=== PATIENT | male | born 1950 | race Caucasian/White ===

== ENCOUNTER → 2020-01-10 10:45 | Outpatient (BNVA) | payer MEDICARE, OTHER, SELFPAY | PROVIDERS: Family Provider Nurse Practitioner Family; Visit Provider Surgery | DX: Z20.828 Contact with and (suspected) exposure to other viral communicable diseases (principal) | CPT/HCPCS: 87635 ==

== ENCOUNTER 2020-01-17 07:23 | Day surgery (SDC) | payer MEDICARE, OTHER, SELFPAY ==
[2020-01-13 12:51] VITALS: BMI 21.9
[2020-01-17 07:55] VITALS: BP 110/70; PULSE 75; RESP 18; TEMP 36.9; O2SAT 98
[2020-01-17] MEDS: sodium chloride 0.9% 1,000 ML 30 ML IV (08:02)
--- NOTE | 2020-01-17 08:32 | W.PM.OPSUD ---
Surgery/Procedure H&P Update DATE OF PROCEDURE: January 17, 2020 DATE H&P PERFORMED: 12/23/19 H&P UPDATE INFORMATION: I have reviewed H&P completed within last 30 days, I have examined patient prior to procedure and No changes to prior documentation PREOP DIAGNOSIS: Constipation PLANNED PROCEDURE: Operation Date: 01/17/20 09:00 Proposed Procedures p Colonoscopy 38019 K59.09(Not Applicable) - Caio Dodge MD
--- NOTE | 2020-01-17 08:38 | P.ANESASSM_ITS ---
Pre-Anesthetic Assessment Pre-Anesthetic Assessment: Height/Weight: Height 1.83 m Weight 73.482 kg Temp Pulse Resp BP Pulse Ox 98.4 F 75 18 110/70 98 01/17/20 07:55 01/17/20 07:55 01/17/20 07:55 01/17/20 07:55 01/17/20 07:55 Preop Diagnosis: Constipation Proposed Procedure: Operation Date: 01/17/20 09:00 Proposed Procedures p Colonoscopy 97912 K59.09(Not Applicable) - Caio Dodge MD Was Beta Lalo taken within 24 hours: N/A Last intake: Intake Last Liquid Date 01/16/20 Last Liquid Time 21:00 Last Solid Date 01/15/20 Last Solid Time 21:00 Social: Social History: Tobacco (1pk day) Exam: Pre-Anes Outpt Exam: alert, oriented x 3, clear to auscultation bilaterally and regular rate & rhythm Airway: Submandibular: WNL Cervical ROM: WNL MP: 2 Dentition: Full (poor) History/ROS: No significant history except as noted and No significant complaints Pulmonary: Pulmonary: COPD (mild. uses mdi rarely) CV/HEM: CV/HEM: None reported : : None reported Hepatic: Hepatic: None reported GI: GI: GERD (occasional) Metabolic: Metabolic: None reported Musc/skel: Musc/skel: None reported Neuropsych: Neuropsych: None reported Anesthetic Plan: ASA status: 2 Anesthesia: MAC Meds/Allergies Current Medications: Current Medications Generic Name Dose Route Start Last Admin Trade Name Freq PRN Reason Stop Dose Admin Sodium Chloride 1,000 mls @ 30 ml s/hr 01/17/20 07:30 01/17/20 08:02 Sodium Chloride 0.9% IV 30 mls/hr .Q24H ALISIA Administration PFSH Anesthesia PFSH: Medical History COPD (chronic obstructive pulmonary disease) GERD (gastroesophageal reflux disease) Hyperlipidemia Surgical History History of eye surgery History of facial surgery History of laparoscopic appendectomy Family History Denies family history of Anesthesia complication Bleeding disorder Social History Smoking and tobacco status: current every day smoker Second hand smoke exposure: No Alcohol intake: never Adopted: No Caregiver/support person: Yes Lives independently: Yes Household members: spouse Housing: House Marital status: service: Yes status: Retired branch: [employer] Current occupational status: retired Pets and animals: No History of recent travel: No Leisure activites: exercise, hunting and fishing Sexually active: Yes Current gender identity: Male Sylvia/Temple: Mormonism Data Anesthesia Cardiac Studies: No Data to Display
[2020-01-17 09:15] VITALS: BP 84/50; PULSE 60; RESP 16; TEMP 36.1; O2SAT 97
[2020-01-17 09:29] VITALS: BP 107/69; PULSE 64; RESP 16; O2SAT 98
--- NOTE | 2020-01-17 09:50 | ANE.PACU2 ---
Inpatient post-anesthesia follow up: Airway intact: Yes Vital signs: Temperature 97 F Pulse Rate 64 Respiratory Rate 16 Blood Pressure 107/69 Pulse Oximetry 98 Oxygen Delivery Me thod Room Air Oxygen Flow Rate Fraction of Inspir ed Oxygen Hydration adequate: Yes Nausea and vomiting: No Pain level: 1 Mental status: Baseline
== END 2020-01-17 09:53 | disposition home or self-care (01) ==
PROVIDERS: PCP Nurse Practitioner Family; Visit Provider Surgery
PROC: 0DJD8ZZ Inspection of Lower Intestinal Tract, Via Natural or Artificial Opening Endoscopic (ICD-10-PCS; CPT 45378; principal; 2020-01-17 09:00)
DX: K59.09 Other constipation (principal); D12.5 Benign neoplasm of sigmoid colon; K64.8 Other hemorrhoids; J44.9 Chronic obstructive pulmonary disease, unspecified; K21.9 Gastro-esophageal reflux disease without esophagitis; E78.5 Hyperlipidemia, unspecified; F17.210 Nicotine dependence, cigarettes, uncomplicated; Z79.82 Long term (current) use of aspirin
CPT/HCPCS: 12345; 45380; 88305; J2704; J7030

== ENCOUNTER 2020-10-26 10:11 | Outpatient (CLI) | payer MEDICARE, OTHER, SELFPAY ==
--- NOTE | 2020-10-26 10:21 | XR_ITS ---
WS: [id number] SCREENING DEXA SCAN [employer] CLINICAL INFORMATION: AGE-RELATED OSTEOPOROSIS WITHOUT CURRENT PATHOLOGICAL FRACTU COMPARISON: None. FINDINGS: The L1-L4 bone mineral density measures 1.878 g/cm2. This corresponds to a T score score of 5.5 and Z score of 6.3. Left femoral neck bone mineral density measures 1.006 g/cm2. This corresponds to a T score of -0.7 an d Z score of 0.2. Right femoral neck bone mineral density measures 0.962 g/cm2. This corresponds to a T score -1.0of an d Z score of -0.1. Mean femoral neck bone mineral density measures 0.984 g/cm2. This corresponds to a T score of -0.8 an d Z score of 0.1. XR/XR DEXA axial skeleton* [id number] IMPRESSION: Normal bone mineralization in the lumbar spine.. Osteopenia in the right femora l neck at the lower end of the range. Normal bone mineralization left femoral n lily. Patient's FRAX calculated 10 year probability for major osteoporotic fracture i s 4.8 % and osteoporotic hip fracture is 1.2%.
== END 2020-10-26 10:12 | disposition home or self-care (01) ==
LOC: RADWPI 10:16
PROVIDERS: PCP Nurse Practitioner Family; Visit Provider Nurse Practitioner Family
DX: M81.0 Age-related osteoporosis without current pathological fracture (principal)
CPT/HCPCS: 77080

== ENCOUNTER 2021-07-02 09:33 | Outpatient (CLI) | payer MEDICARE, OTHER, SELFPAY ==
--- NOTE | 2021-07-02 09:40 | CTR_ITS ---
PROCEDURE INFORMATION: Exam: CT Chest With Contrast; Diagnostic Exam date and time: 07/02/2021 9:40 AM Age: 70 years old Clinical indication: Condition or disease; Lung condition and disease; Other: Benign neoplasm of left lung; Additional info: Benign neoplasm of left lung, mob TECHNIQUE: Imaging protocol: Diagnostic computed tomography of the chest with contrast. Radiation optimization: All CT scans at this facility use at least one of these dose optimization techniques: automated exposure control; mA and/or kV adjustment per patient size (includes targeted exams where dose is matched to clinical indication); or iterative reconstruction. Contrast material: OMNI 300; Contrast volume: 0.95 ml; Contrast route: INTRAVENOUS (IV); COMPARISON: CT chest w con* [id number] 01/03/2019 8:19 AM RADIATION DOSE METRICS: Total DLP (mGy-cm): 658.81 FINDINGS: Lungs: There is new streaky/spiculated nodules in the right upper lobe, the largest measuring approximately 1.8 x 1.3 x 1.6 cm. There is new tiny nodules in the superior anterior left lower lobe, adjacent to the major fissure. Slight increased conspicuity of 0.3 cm subpleural nodule in the anterior left upper lobe. No pleural effusion or pneumothorax. Pleural spaces: See Lungs finding. Heart: Unremarkable. No cardiomegaly. No pericardial effusion. Aorta: Unremarkable. No aortic aneurysm. Other arteries: Mild diffuse atherosclerotic disease is present. Veins: A retroaortic left renal vein is incidentally noted. Lymph nodes: Unremarkable. No enlarged lymph nodes. Bones/joints: Degenerative changes of the spine seen. Soft tissues: Unremarkable. CT/CT chest w con* [id number] IMPRESSION: New spiculated nodules in the right upper lobe. Highly suspicious nodule(s). Consider non-emergent PET/CT, or tissue sampling.(Reference: Arthur) REFERENCES: Arthur Meeks et al. Guidelines for Management of Incidental Pulmonary Nodules Detected on CT Images: From the Fleischner Society 2017. Radiology. 2017;284(1):228-243.
[2021-07-02 10:27] LABS: Blood Urea Nitrogen 16 mg/dL (8-23); Glomerular Filtration Rate 83.4 mL/min (90-130)
[2021-07-02] MEDS: iohexol 300 mg/mL 100 mL Btl IV (12:29)
== END 2021-07-02 09:34 | disposition home or self-care (01) ==
LOC: RAD 09:34
PROVIDERS: PCP Nurse Practitioner Family; Visit Provider Nurse Practitioner Family
DX: D14.32 Benign neoplasm of left bronchus and lung (principal)
CPT/HCPCS: 71260; 82565; 84520

== ENCOUNTER → 2021-07-19 10:07 | Outpatient (BNVA) | payer MEDICARE, OTHER, SELFPAY | PROVIDERS: PCP Nurse Practitioner Family; Visit Provider Thoracic Surgery (Cardiothoracic Vascular Surgery) | DX: R91.8 Other nonspecific abnormal finding of lung field (principal); F17.210 Nicotine dependence, cigarettes, uncomplicated ==

== ENCOUNTER 2021-07-30 11:22 | Outpatient (CLI) | payer MEDICARE, OTHER, SELFPAY ==
--- NOTE | 2021-07-30 13:26 | PFTS_ITS ---
Date of Study:07/30/21 Date of Dictation: MECHANICS: Forced vital capacity (FVC) is normal. Forced expiratory volume in one second (FEV1) is reduced. FEV1/FVC is reduced. FLOW VOLUME LOOP: Reduced flow at all lung volumes with significant scooping. LUNG VOLUMES: Total lung capacity (TLC) is normal. Residual volume (RV) is normal. DIFFUSING CAPACITY FOR CARBON MONOXIDE: Moderately reduced. INTERPRETATION: The postbronchodilator spirometry is consistent with moderate airflow obstruction. There is no significant postbronchodilator response. Lung volumes are normal. Gas exchange (DLCO) is moderately reduced. MTDD
== END 2021-07-30 11:23 | disposition home or self-care (01) ==
LOC: RT 11:26
PROVIDERS: PCP Nurse Practitioner Family; Visit Provider Thoracic Surgery (Cardiothoracic Vascular Surgery)
DX: R91.8 Other nonspecific abnormal finding of lung field (principal)
CPT/HCPCS: 94060; 94726; 94729

== ENCOUNTER → 2021-08-01 12:47 | Outpatient (BNVA) | payer MEDICARE, OTHER, SELFPAY | PROVIDERS: PCP Nurse Practitioner Family; Visit Provider Thoracic Surgery (Cardiothoracic Vascular Surgery) | DX: R91.8 Other nonspecific abnormal finding of lung field (principal); F17.210 Nicotine dependence, cigarettes, uncomplicated | CPT/HCPCS: 99213; 99214 ==

== ENCOUNTER → 2021-08-14 13:20 | Day surgery (SDC) | payer MEDICARE, OTHER, SELFPAY | PROVIDERS: PCP Nurse Practitioner Family; Visit Provider Thoracic Surgery (Cardiothoracic Vascular Surgery) | DX: Z01.818 Encounter for other preprocedural examination (principal) | CPT/HCPCS: 93005; J1100; J2250; J2370; J2405; J2704; J2710; J2795; J3010; J3490 ==

== ENCOUNTER 2021-08-20 19:35 | Inpatient (IN) | payer MEDICARE, OTHER, SELFPAY ==
[2021-08-14 13:15] VITALS: BMI 21.7
--- NOTE | 2021-08-14 13:20 | ECG_ITS ---
[facility] Test Date: 2021-08-14 Pat Name: Giancarlo Ibarra Jr Department: Room: Gender: Male Event Producer: : 1950 Requested By: Sue Jaime Order Number: [id number] Solo MD: Ryan Victor M.D. Measurements Intervals [place] Rate: 71 P: 70 [place]: 142 QRS: 85 QRSD: 93 T: 79 QT: 405 QTc: 441 Interpretive Statements SINUS RHYTHM WITH SINUS ARRHYTHMIA INCOMPLETE RIGHT BUNDLE BRANCH BLOCK [90+ ms QRS DURATION, TERMINAL R IN V1/V2, 40+ ms S IN I/aVL/V4/V5/V6] No previous ECG available for comparison Electronically Signed On 08-14-2021 17:05:09 CDT by Ryan Victor M.D. [id number]
--- NOTE | 2021-08-14 13:33 | P.ANESASSM_ITS ---
Pre-Anesthetic Assessment Height/Weight: Height 1.83 m Weight 72.575 kg Preop Diagnosis: Right upper lobe lung mass/plan lobectomy Operation Date: 08/20/21 09:30 Proposed Procedures p Right upper lobectomy(Right) - Gaston Mccartney MD Familial anesthetic complications: Had halluctions once Was Beta Lalo taken within 24 hours: N/A Was Clonidine taken within 24 hours: N/A Social Alcohol (2 glasses wine daily) and Tobacco Exam alert, oriented x 3, clear to auscultation bilaterally and regular rate & rhythm Airway Mallampati: Class II Dentition: full Pulmonary Chronic Obstructive Pulmonary Disease CV/HEM None reported None reported Hepatic None reported GI Gastroesophageal Reflux Disease Metabolic None reported Musc/skel Lower Back Pain Neuropsych None reported Anesthetic Plan ASA status: 2 Anesthesia: General Risk of > 500 ml blood loss (7ml/kg in children): No Medications/Allergies Home Medications Medication Instructions Recorded Confirmed Last Taken Type albuterol sulfate 90 mcg/actuation 2 puff INHALATION Q4H PRN gm 12/23/19 08/14/21 Unknown History aerosol inhaler (ProAir HFA) aspirin 81 mg tablet,delayed 81 mg PO DAILY 12/23/19 08/14/21 07/30/21 History release (Adult Low Dose Aspirin) fluoxetine 40 mg capsule 40 mg PO DAILY 12/23/19 08/14/21 Unknown History fluticasone fur. 100 mcg-umeclid 1 inh INHALATION DAILY 12/23/19 08/14/21 Unknown History 62.5 mcg-vilant 25 mcg inhalat.powder (Trelegy Ellipta) meloxicam 15 mg tablet 15 mg PO DAILY PRN 12/23/19 08/14/21 Unknown History saw palmetto 500 mg capsule 500 mg PO DAILY cap 12/23/19 08/14/21 Unknown History sildenafil 50 mg tablet 50 mg PO .3x weekly PRN tab 12/23/19 08/14/21 Unknown History simvastatin 40 mg tablet 40 mg PO DAILY 12/23/19 08/14/21 Unknown History Allergies Allergy/AdvReac Type Severity Reaction Status Date / Time No Known Allergies Allergy Verified 08/14/21 13:13 [facility] Anesthesia Medical History COPD (chronic obstructive pulmonary disease) GERD (gastroesophageal reflux disease) Hyperlipidemia Surgical History History of eye surgery History of facial surgery History of laparoscopic appendectomy Family History Denies family history of Anesthesia complication Bleeding disorder Social History Smoking and tobacco status: current every day smoker cigarettes Packs smoked per day: 1 Years cigarettes smoked: 55 Second hand smoke exposure: No Alcohol intake: never Adopted: No Caregiver/support person: Yes Lives independently: Yes Household members: spouse Housing: House Marital status: service: Yes status: Retired branch: [employer] Current occupational status: retired Pets and animals: No History of recent travel: No Leisure activites: exercise, hunting and fishing Sexually active: Yes Current gender identity: Male Sylvia/Muslim: Church Data Anesthesia Cardiac Studies: No Data to Display
[2021-08-14 13:52] LABS: Basophils % 0.5 %; Eosinophils # 0.3 10^3/uL (0.0-0.8); Eosinophils % 4.7 %; Hematocrit 47.8 % (42.0-52.0); Hemoglobin 16.2 g/dL (11.7-16.6); Lymphocytes # 1.5 10^3/uL (0.8-4.8); Mean Corpuscular HGB Conc 33.9 g/dL (30.0-36.0); Mean Corpuscular Hemoglobin 32.9 pg (28.0-34.0); Mean Corpuscular Volume 97.2 fl (80-94); Mean Platelet Volume 10.5 fL (7.4-10.4); Monocytes # 0.5 10^3/uL (0.2-0.9); Monocytes % 7.7 %; Neutrophils # 3.99 10^3/uL (1.8-7.7); Neutrophils % 62.5 %; Nucleated Red Blood Cells % 0 %; Platelet Count 164 10^3/cmm (130-400); Red Blood Count 4.92 10^6/uL (4.1-5.3); Red Cell Distribution Width 13.8 % (12.1-15.1); White Blood Count 6.4 10^3/uL (4.0-10.0)
[2021-08-14 14:02] LABS: INR 0.96 (0.8-1.2)
[2021-08-14 14:07] LABS: Anion Gap 16.8 (5-19); Blood Urea Nitrogen 16 mg/dL (8-23); Calcium 9.1 mg/dL (8.5-10.5); Carbon Dioxide 24 mmol/L (22-29); Chloride 103 mmol/L (98-107); Glomerular Filtration Rate 95.6 mL/min (90-130); Glucose 118 mg/dL (65-115); Osmolality Calculated 292 mOsm/kg (285-295); Potassium 3.8 mmol/L (3.5-5.1); Sodium 140 mmol/L (136-145)
[2021-08-14 14:18] LABS: Urine Appearance Hazy (CLEAR); Urine Color Yellow (Yellow); pH Urine 7 (5-7)
[2021-08-14 14:19] LABS: Add Urine Culture? No; Add Urine Microscopic? YES; Bilirubin Urine Neg (Negative); Blood Urine Neg (Negative); Glucose Urine UA Norm (Normal); Ketones Urine Negative (Negative); Leukocyte Esterase Urine 1+ (Negative); Nitrate Urine Negative (Negative); Protein Urine Neg (Negative); RBC Urine 0-4 /hpf (0-2); Urobilinogen Urine Neg (Negative); WBC Urine 0-4 /hpf (0-5)
[2021-08-20] VITALS (23 sets, daily range): BP systolic 103–137; BP diastolic 60–85; PULSE 69–88; RESP 15–28; TEMP 36.5–37.6; O2SAT 91–98
--- NOTE | 2021-08-20 07:36 | P.ANESUD_ITS ---
Pre-Anesthetic Update Pre-Anesthetic Assessment: Date of Surgery/Procedure: 08/20/21 Preop Charley gnosis: Right upper lobe lung mass/plan lobectomy Proposed Procedure: Operation Date: 08/20/21 09:30 Proposed Procedures p Right upper lobectomy(Right) - Gaston Mccartney MD Any changes to Pre-Anesthetic Assessment?: No Last Intake: > 8hrs Labs Last 48hrs: Blood Bank 08/14/21 13:41 Blood Type O Positive Rho(D) Type Positive Antibody Screen Negative Vitals: Temperature 97.7 F 08/20/21 07:33 Temperature Source Temporal Artery S can 08/20/21 07:33 Pulse Rate 69 08/20/21 07:33 Respiratory Rate 18 08/20/21 07:33 Blood Pressure 109/64 08/20/21 07:33 Blood Pressure Kamala n 79 08/20/21 07:33 Pulse Oximetry 96 08/20/21 07:33 Oxygen Delivery Me thod 08/20/21 07:35 Exam: Pre-Anes Outpt Exam: alert, oriented x 3, clear to auscultation bilaterally and regular rate & rhythm Additional Exam Findings (including area of procedure): General + Epidural +/- A line Other Pertinent Information: Other Pertinent Information: ASA III Cardiac Studies: No Data to Display
[2021-08-20] MEDS: sodium chloride 0.9% 1,000 ML 30 ML IV (08:39)
[2021-08-20] MEDS: midazolam 1 mg/mL INJ 5 ML 5 MG IVP (10:00)
--- NOTE | 2021-08-20 10:26 | ANES.PROC ---
Anesthesia Procedures Procedure/Date: 08/20/21 Epidural: Time Out Performed: Yes Consents Signed: NPO Consent Consent: requested by attending/covering physician, from patient, risks and benefits reviewed and patient agrees to proceed Thoracic Level: T9-T10 Epidural position: sitting Epidural procedure: sterile prep of area, 1% lidocaine to numb the area, 18 g needle, negative for paresthesia passed, neg for paresthesia, test dose given, 1.5% xylocaine 1:200k epi (3), placed PCEA, no systemic response, sterile dressing applied and L.U.D. no apparent complications Additional Comments: EBONY at 6 cm, threaded to 12 cm
--- NOTE | 2021-08-20 13:09 | W.PM.OPSUD ---
Surgery/Procedure H&P Update DATE OF PROCEDURE: August 20, 2021 DATE H&P PERFORMED: 08/01/21 H&P UPDATE INFORMATION: I have reviewed H&P completed within last 30 days, I have examined patient prior to procedure and No changes to prior documentation CHANGES TO PREVIOUS DOCUMENTATION: None PREOP DIAGNOSIS: Right upper lobe lung mass/plan lobectomy PLANNED PROCEDURE: Operation Date: 08/20/21 09:30 Proposed Procedures p Right upper lobectomy(Right) - Gaston Mccartney MD
[2021-08-20] MEDS: ceFAZolin 1,000 mg SDV 2000 MG IRRIGATION (14:32)
--- NOTE | 2021-08-20 19:46 | P.OP_ITS ---
Operative Report Date of procedure: August 20, 2021 Pre-op diagnosis: Preop Diagnosis Right upper lobe lung mass with increased activity on PET scan Post-op diagnosis: same Procedure done: Right upper and middle lobectomies Specimens removed/disposition: Right upper lobe and right middle lobe incontinuity Surgeon: Gaston Mccartney Anesthesia: General (Double-lumen) Complications: None Condition: stable Brief History: Mr. Ibarra is a 70-year-old gentleman referred to our service with a 2 sonometer right upper lobe lung lesion which showed increased activity on PET scan. He marinelli s been followed carefully by his primary care provider Kelly Mcguire since 2017, as he has a long history of tobacco use. He has a benign appearing stable calcified lesion in the left upper lobe which is been unchanged on multiple studies. The new area in the posterior aspect the right upper lobe has a stellate/irregular appearance and a SUV of 5.8 on PET scan. Because of these findings, along with his age and long history tobacco use, surgical resection has been recommended. He underwent careful preoperative pulmonary evaluation. Details the risk of surgery been carefully discussed with Mr. Ibarra and his . Appropriate signs have been reviewed and signed. Procedure: Thoracic epidural catheter was placed prior to entering the surgical suite. Mr. Ibarra underwent general endotracheal anesthesia with double-lumen endotracheal tube placed. Appropriate invasive lines were placed. He was placed in the left lateral decubitus position over axillary roll and protective padding. His entire right chest was sterilely prepped and draped. A muscle-sparing limited right thoracotomy incision was made with cautery used to control bleeding. Latissimus muscle was divided. The anterior serratus muscle was retracted but not divided. The fifth intercostal space was entered. Moist laparotomy pads and the Finochietto retractor were placed. The chest was carefully opened. Right upper lobe mass could be easily palpated with what also felt to possibly represent a satellite lesion. There was extensive the pleura was opened circumf erentially around the hilum. Inferior pulmonary ligament was taken down. Hilar dissection was initiated anteriorly and superiorly. There was extensive matted adenopathy around the hilum which made dissection challenging. This persisted throughout the case. The superior pulmonary vein was controlled and stapled. It was then divided. Dissection was then continued cranially isolating branches of the pulmonary artery to the right upper lobe. These were also taken down ligated and divided. Posteriorly, the bronchus to the right upper lobe was dissected free. Fissure between middle lobe and lower lobe was divided using automated stapler. Pulmonary artery branches to the middle lobe were taken down and ligated. Bronchus to the right middle lobe was stapled, transected, and oversewn. Next, right upper lobe bronchus was stapled and sharply divided with scalpel. Right upper and middle lobe specimen was removed. As it was late in the evening, frozen section was not performed. There were substantial volume of lymph nodes with the specimen. The entire chest was irrigated with large amounts of antibiotic solution. Right lower lobe was reinflated. A modest air leak was noted, which is not surprising given the extensive dissection required related to the adenopathy and incomplete fissures requiring stapled transection. 28 Brazilian drain was placed over the diaphragm and out to the apex. This was connected to Pleur-evac suction. Retractor and sponges were removed. Sponge and needle count was correct. Chest wall was reapproximated with interrupted #1 Vicryl suture. The fascia was closed with running 0 Vicryl suture. The subcutaneous layer was closed with 2-0 Vicryl suture. Skin was reapproximated in a subcuticular manner with 3-0 Monocryl suture. Sterile dressing was applied. Mr. Ibarra was returned to the supine position and awakened from anesthesia. He was extubated without difficulty he was then transferred to the ICU. Family was counseled. Chest x-ray is pending.
--- NOTE | 2021-08-20 20:00 | PM.MISC ---
Miscellaneous Note Note: 08/20/21 - During transport from OR table to ICU bed, epidural catheter became disconnected from hub. Exposed catheter tip was placed on sterile drape, cleansed throroughly with chloroprep for 20 seconds, cut 2 - 3 cm from the tip using sterile scissors and reconnected to a new sterile hub from new epidural kit.
[2021-08-20] MEDS: morphine 4 mg/mL SDV 1 mL 2 MG IVP ×3 (20:05→22:44)
[2021-08-20] MEDS: ondansetron 2 mg/ML SDV 2 mL 4 MG IVP (20:49)
[2021-08-20] MEDS: oxyCODONE-APAP 5-325 mg Tablet 1 TAB PO (20:50)
[2021-08-21] VITALS (56 sets, daily range): BP systolic 101–125; BP diastolic 55–75; PULSE 63–80; RESP 12–34; TEMP 37.2; O2SAT 84–94
[2021-08-21] MEDS: oxyCODONE-APAP 5-325 mg Tablet 1 TAB PO ×4 (01:35→21:04)
[2021-08-21 04:42] LABS: Basophils % 0.1 %; Hematocrit 42.7 % (42.0-52.0); Hemoglobin 14.1 g/dL (11.7-16.6); Lymphocytes # 0.6 10^3/uL (0.8-4.8); Lymphocytes % 6.6 %; Mean Corpuscular Hemoglobin 33.2 pg (28.0-34.0); Mean Corpuscular Volume 100.5 fl (80-94); Mean Platelet Volume 10.1 fL (7.4-10.4); Monocytes # 0.9 10^3/uL (0.2-0.9); Monocytes % 9.6 %; Neutrophils # 7.59 10^3/uL (1.8-7.7); Neutrophils % 83.2 %; Nucleated Red Blood Cells % 0 %; Platelet Count 145 10^3/cmm (130-400); Red Blood Count 4.25 10^6/uL (4.1-5.3); Red Cell Distribution Width 14.3 % (12.1-15.1); White Blood Count 9.1 10^3/uL (4.0-10.0)
[2021-08-21 05:00] LABS: Anion Gap 15.2 (5-19); Blood Urea Nitrogen 17 mg/dL (8-23); Calcium 8.1 mg/dL (8.5-10.5); Carbon Dioxide 20 mmol/L (22-29); Chloride 107 mmol/L (98-107); Glomerular Filtration Rate 133.2 mL/min (90-130); Glucose 126 mg/dL (65-115); Osmolality Calculated 289 mOsm/kg (285-295); Potassium 4.2 mmol/L (3.5-5.1); Sodium 138 mmol/L (136-145)
[2021-08-21] MEDS: morphine 4 mg/mL SDV 1 mL 2 MG IVP ×10 (06:00→20:16)
--- NOTE | 2021-08-21 06:00 | XRR_ITS ---
PROCEDURE INFORMATION: Exam: XR Chest Exam date and time: 08/21/2021 4:31 AM Age: 70 years old Clinical indication: Device placement; Prior surgery; Surgery date: Post-operative (0-2 days); Surgery type: Post op day 1 for RT upper/ middle lobectomy; Patient HX: Epidural line and chest tube in place; Additional info: Postop day 1 status post right upper/middle lobectomies TECHNIQUE: Imaging protocol: XR of the chest. Views: 1 view. COMPARISON: CT chest w con* [id number] 07/02/2021 9:17 AM FINDINGS: Tubes, catheters and devices: Right thoracostomy tube present. Surgical clips project over the right hilum. Coiled epidural line present. Lungs: Previously demonstrated calcified lesion in the left upper lobe. Pleural spaces: No large pleural effusion or definite pneumothorax. Heart/Mediastinum: The cardiac silhouette is not enlarged. Bones/joints: Multilevel degenerative changes in lumbar spine. Soft tissues: Minimal subcutaneous emphysema in the lateral right chest wall and low right neck. XR/XR chest 1V portable [id number] IMPRESSION: Postoperative changes.
--- NOTE | 2021-08-21 06:45 | P.PN_ITS ---
Subjective Subjective: Postop day #1 status post right upper and middle lobectomies for PET positive stellate lesion, highly suspicious for malignancy. Low chest tube output less than 50 cc overnight. Early postop airleak appears to have dissipated this morning. Moderate thoracotomy discomfort though appears to be slightly improved. Nursing service reports no concerns overnight. Chest x-ray shows no infiltrates or effusions. Right thoracostomy tube is in good position. There is not a modest midline shift from the volume loss in the right hemithorax. Remaining right lower lobe appears to be clear. Vitals/I&O/Wt Last Vital Signs Temp 99.7 F H 08/20/21 20:30 Pulse 77 08/21/21 05:33 Resp 29 H 08/21/21 06:00 BP 107/62 08/21/21 05:15 Pulse Ox 92 08/21/21 06:00 08/20/21 08/20/21 08/21/21 14:59 22:59 06:59 Intake Total 50 / 50 Output Total 439 / 439 561 / 1000 Balance -389 / -389 -561 / -950 Physical Exam 2 Chest: OTHER: Chest wall is stable. Surgical dressings in place. No airleak noted with quiet respiration in Pleur-evac Resp: OTHER: Decreased breath sounds in the bases. Urinary Catheter Management: Cross: Cath Placed During This Visit: yes Reason for Continuing Indwelling Catheter: Accurate Measurement of Urinary Output in Critically Ill Patients Urinary Catheter Date of Insertion: 08/20/21 Urinary Catheter Time of Insertion: 14:15 Data : 08/21/21 04:28 08/21/21 04:28 A&P Assessment and plan (1) Status post lobectomy of lung: POD #1 status post right upper and lower lobectomies. Uneventful night. Plan: Out of bed in chair. Incentive spirometry and pulmonary toilet DC arterial line. Chest x-ray in a.m. Status: Acute Attestations Medical Necessity Statement*: Postop day #1 status post right upper and middle lobe lobectomies Coding Level of Care Code Acute Insulation Worker for Chg Fwd Diagnoses Status post lobectomy of lung Z90.2
[2021-08-21] MEDS: pantoprazole DR 40 mg Tablet PO (08:19)
[2021-08-21] MEDS: fluoxetine 20 mg Capsule 40 MG PO (08:19)
[2021-08-21] MEDS: atorvastatin 40 mg Tablet 20 MG PO (08:19)
[2021-08-21] MEDS: albuterol 8 gm MDI 2 PUFF INHALATION ×2 (08:33→20:29)
--- NOTE | 2021-08-21 10:04 | PM.MISC ---
Miscellaneous Note Note: Epidural dressing intact, no s/s of infection, to include erythema, purulence, pain to palpation. Patient sitting up eating on exam. States pain at the moment is moderate and says he's good as long as [he has] his button. Informed patient if his pain were to increase, we can always adjust epidiural settings.
--- NOTE | 2021-08-21 10:27 | PC.CHAP ---
Pastoral Care Encounter/Spiritual Assessment Type of Contact [] Declined fruit and vegetable packer visit [] Patient/Family/Request visit [] Outpatient visit [] Follow-up visit [] Physician referral [] Code/Alert [x] Routine visit [] Staff referral [] Actively dying [x [] Out of room [] Palliative care [] [] Receiving care in room [] Pre-surgical visit [] Trauma [] Long length of stay [x] ICU visit [] Other: Relational/Emotional Strength [] Patient feels connected with others/family/visitors/staff [] Distress [] Loneliness/isolation [] Abandonment Spirituality of Patient [] Person of Sylvia [] Attends Temple of their Sylvia [] Believes in Prayer [] Reads Bible or Denominational materials [] There are Spiritual issues to be addressed Sign Out Clerk Interventions [x] Prayer [] Active listening [] Non-anxious presence [] Spiritual/emotional support [] Crisis/trauma care [] Spiritual counseling [] Bereavement support [] Provided bereavement packet [] Provided Bible/devotional materials [] Provided toy/stuffed animal, coloring book to patient or family member [] Provided Communion [] Anointing/[place] [] Salvation [x] Completed spiritual assessment [] Other: Impact on Illness or Injury [] Angry [] Fearful [] Anxious [] Often cries [] Exhaustion [] Unable to work [] Unable to attend scientology [] Unable to walk/stand [] Unable to read [] Unable to drive [] Unable to eat/drink [] Unable to sleep [] Unable to be with family [] Patient intubated [] Other: Summary Time spent with patient
--- NOTE | 2021-08-21 17:13 | PM.MISC ---
Miscellaneous Note Purpose of Documentation: Sitting up in chair with family at bedside on evening rounds. Light intermittent air leak with respiration and talking. Chest tube output approximately 300 cc. Pulling approximately 1000 cc on incentive spirometry. Surgical dressing dry. Plan: We will obtain chest x-ray in a.m. Continue pulmonary toilet. I will leave chest tube to suction at least another 12 to 24 hours.
--- NOTE | 2021-08-21 18:32 | PC.NURSE ---
Patients pain has not been well controlled via STRAWBERRY GROWER pump. Asking for PRN pain medication as soon as possible.
[2021-08-21] MEDS: ketorolac 30 mg/mL INJ IVP (21:05)
[2021-08-21] MEDS: temazepam 15 mg Capsule PO (21:05)
--- NOTE | 2021-08-21 21:46 | XRR_ITS ---
PROCEDURE INFORMATION: Exam: XR Chest Exam date and time: 08/21/2021 9:53 PM Age: 70 years old Clinical indication: Shortness of breath; Prior surgery; Surgery date: Post-operative (0-2 days); Surgery type: RT upper and middle lobectomy. ; Patient HX: Decrase in 02 sats. Verify chest tube positioning. Post op day 2 for RT upper/middle lobectomy. Epidural line in place. ; Additional info: Chest tube questionability TECHNIQUE: Imaging protocol: XR of the chest. Views: 1 view. COMPARISON: CR XR chest 1V portable [id number] 08/21/2021 4:31 AM FINDINGS: Lungs: Continued loss of volume in the right hemithorax consistent with partial right pneumonectomy. Continued partially calcified lesion in the left lung apex. Pleural spaces: Small right pleural fluid collection. Heart/Mediastinum: Unremarkable. No cardiomegaly. Bones/joints: Unremarkable. XR/XR chest 1V portable [id number] IMPRESSION: 1. Small right pleural fluid collection. 2. Continued loss of volume in the right hemithorax consistent with partial right pneumonectomy. 3. Continued partially calcified lesion in the left lung apex.
[2021-08-21] MEDS: FUROsemide 10 mg/mL SDV 2mL 20 MG IVP (22:08)
[2021-08-22] VITALS (164 sets, daily range): BP systolic 76–128; BP diastolic 47–79; PULSE 61–86; RESP 10–32; TEMP 36.6–37.1; O2SAT 81–98
[2021-08-22] MEDS: oxyCODONE-APAP 5-325 mg Tablet 1 TAB PO ×2 (02:22→15:16)
[2021-08-22] MEDS: ketorolac 30 mg/mL INJ IVP ×4 (03:13→21:03)
[2021-08-22] MEDS: albuterol 8 gm MDI 2 PUFF INHALATION ×2 (05:53→14:29)
--- NOTE | 2021-08-22 06:00 | XRR_ITS ---
PROCEDURE INFORMATION: Exam: XR Chest Exam date and time: 08/22/2021 5:40 AM Age: 70 years old Clinical indication: Device placement; Other: Upper/middle lobectomies; Prior surgery; Surgery date: Post-operative (0-2 days); Additional info: Pod #2 status post right upper/middle lobectomies TECHNIQUE: Imaging protocol: XR of the chest. Views: 1 view. Total images: 1 COMPARISON: CR (CHEST, ) 08/21/2021 9:53 PM FINDINGS: Tubes, catheters and devices: Surgical tubing projecting in right hemithorax unchanged in position. Lungs: Again noted calcified lesion the left lung apex unchanged. Stable right pleuroparenchymal disease. Pleural spaces: No pneumothorax. Heart/Mediastinum: Unremarkable. No cardiomegaly. Bones/joints: Osseous structures are unchanged from the prior exam. Other findings: Stable postsurgical changes. XR/XR chest 1V portable [id number] IMPRESSION: Stable right pleuroparenchymal disease.
[2021-08-22] MEDS: morphine 4 mg/mL SDV 1 mL 2 MG IVP ×3 (06:06→18:37)
[2021-08-22 06:16] LABS: Basophils % 0.2 %; Eosinophils # 0.1 10^3/uL (0.0-0.8); Eosinophils % 0.9 %; Hematocrit 41.6 % (42.0-52.0); Hemoglobin 13.7 g/dL (11.7-16.6); Lymphocytes # 1.3 10^3/uL (0.8-4.8); Lymphocytes % 11.9 %; Mean Corpuscular HGB Conc 32.9 g/dL (30.0-36.0); Mean Corpuscular Hemoglobin 32.8 pg (28.0-34.0); Mean Corpuscular Volume 99.5 fl (80-94); Mean Platelet Volume 9.8 fL (7.4-10.4); Neutrophils # 8.24 10^3/uL (1.8-7.7); Neutrophils % 77.5 %; Nucleated Red Blood Cells % 0 %; Platelet Count 144 10^3/cmm (130-400); Red Blood Count 4.18 10^6/uL (4.1-5.3); White Blood Count 10.6 10^3/uL (4.0-10.0)
[2021-08-22 06:41] LABS: Anion Gap 14.3 (5-19); Blood Urea Nitrogen 27 mg/dL (8-23); Calcium 8.8 mg/dL (8.5-10.5); Carbon Dioxide 23 mmol/L (22-29); Chloride 98 mmol/L (98-107); Glomerular Filtration Rate 83.4 mL/min (90-130); Glucose 109 mg/dL (65-115); Osmolality Calculated 278 mOsm/kg (285-295); Potassium 4.3 mmol/L (3.5-5.1); Sodium 131 mmol/L (136-145)
--- NOTE | 2021-08-22 07:41 | P.PN_ITS ---
Subjective Subjective: Postop day #2 status post right upper lobe lobectomies. Mr. Ibarra slept better last night after receiving Toradol and states it is working quite well to assist with his thoracotomy discomfort. We do know he is requiring more supplemental oxygen and desaturated substantially with oxygen was removed for his chest x-ray this morning. He was quite dyspneic with obvious anxiety for 3 to 4 minutes until his saturation returned up to approximate 92%. Upon review of his x-ray, there is hyperinflation of the left lung as expected though the right lower lobe still remains aerated. Small right pleural effusion is noted and he did have 180 cc out of his pleural drain in the past 24 hours. There is also a modest rightward midline mediastinal shift though no excessive angulation is appreciated of his trachea. Vital signs have otherwise been stable. He had long visits with family yesterday which went well. By exam, he does have substantially decreased breath sounds on the right, more so than what actually is demonstrated from the chest x-ray. I did prescribe Lasix overnight and he did have a nice diuresis and is negative approximately 800 cc past 24 hours. He does show some mild prerenal azotemia on his laboratory data today, though he is not hypokalemic post diuresis. Pathology is pending. Vitals/I&O/Wt Last Vital Signs Temp 97.9 F 08/22/21 01:00 Pulse 69 08/22/21 06:19 Resp 20 H 08/22/21 06:15 BP 100/54 08/22/21 06:15 Pulse Ox 91 08/22/21 06:15 08/21/21 08/22/21 08/22/21 22:59 06:59 14:59 Intake Total 340 / 1060 Output Total 790 / 790 890 / 1680 Balance -450 / 270 -890 / -620 Physical Exam Chest: COMMONS NORMALS: normal inspection of the chest and normal palpation of entire chest wall OTHER: Chest wall is stable without substantial crepitance. Resp: AUSCULTATION: diminished lung sounds on the right Cardio: COMMON NORMALS: regular rate, regular rhythm, S1 normal heart sound present and No rub (Cardio) RATE: regular rate RHYTHM: regular rhythm HEART SOUNDS: S1 normal heart sound present Extremity: COMMON NORMALS: no clubbing, cyanosis or edema Urinary Catheter Management: Cross: Cath Placed During This Visit: yes Reason for Continuing Indwelling Catheter: Accurate Measurement of Urinary Output in Critically Ill Patients Urinary Catheter Date of Insertion: 08/20/21 Urinary Catheter Time of Insertion: 14:15 Data : 08/22/21 06:00 08/22/21 06:00 A&P Assessment and plan (1) Status post lobectomy of lung: Postop day #2 status post right upper and middle lobectomies. Easily desaturates without supplemental oxygen. This is actually worsened over the past 24 hours, though his chest x-ray appears to be stable. Plan: I have asked my colleague, Dr. Padilla from pulmonary medicine for evaluation and recommendations. We are currently continuing pulmonary toilet where he is going about 1000 cc on incentive spirometer. CBC, BMP, chest x-ray in a.m. I have restarted fluids at 100 cc an hour LR. I greatly appreciate Dr. Padilla's expertise and recommendations. Status: Acute Attestations Medical Necessity Statement*: Postop day #2 status post right upper/middle lobectomy Coding Level of Care Code Acute Customer Success Specialist for Chg Fwd Diagnoses Status post lobectomy of lung Z90.2
[2021-08-22] MEDS: lactated ringers 1,000 ML 100 ML IV ×2 (07:43→21:03)
--- NOTE | 2021-08-22 07:56 | PC.RESP ---
albuterol mdi may be left at bedside per Dr. Mccartney verbal order
[2021-08-22] MEDS: atorvastatin 40 mg Tablet 20 MG PO (08:31)
[2021-08-22] MEDS: fluoxetine 20 mg Capsule 40 MG PO (08:31)
[2021-08-22] MEDS: pantoprazole DR 40 mg Tablet PO (08:32)
--- NOTE | 2021-08-22 08:51 | P.CONIM_ITS ---
Providers/Reason For Consult Consulting Physician/Specialty*: Jonathan Padilla MD/ Pulmonology Reason for Consult*: Hypoxia post right upper lobectomy and middle lobectomy Requesting Physician: Gastno Mccartney MD Attending Physician: Gaston Mccartney MD Primary Care Provider: Kelly Mcguire LOGGING SHOVEL OPERATOR-C History of Present Illness History of Present Illness Giancarlo Ibarra Jr is a 70 year old male with past medical history of COPD, GERD, hyperlipidemia, long history of tobacco use underwent right upper and middle lobectomy on 08/20/2021 for PET positive left upper lobe lesion. Explained Patient had fairly large left upper lobe calcified lesion which appeared benign and stable-being followed by PCP with serial imaging. On a more recent CT chest on 07/02/2021 showed same left upper lobe calcified lesion and also new spiculated nodule measuring 1.8 x 1.3 x 1.6 cm in the posterior aspect of the right upper lobe.? These are radiographically suspicious.? Therefore PET scan was performed on July 13 and indeed reveals increased activity in this area with an SUV of 5.8.? There is minimal FDG uptake in a 6 mm superior segment left lower lobe nodule though this is too small to reliably characterize at this time.? This will need close follow-up.? This includes no evidence for kamaljit activity and there is no activity in the larger calcified left upper lobe lesion which has been followed for several years. Prior to lobectomies-patient underwent PFTs which revealed an FEV1 of 2.47 which is 72% of predicted and FVC of 4.17 which is 92% of predicted.? His FEF 25/75 is 1.2 which is 47% of predicted.? There was mild improvement with bronchodilator.? He has moderate diffusion abnormality.? He does utilize home oxygen at night occasionally.? Also patient functional capacity was good and after having discussion about risks and benefits of proposed lobectomies with patient and -patient underwent right upper lobe and middle lobe lobectomy on 08/20/2021. Postoperatively patient was extubated without any difficulty and was moved to ICU for close observation. Chest x-rays revealed continued loss of volume right and consistent with partial right pneumonectomy and expected left lung hyperinflation. Today's postop day 2, chest tube output was low ABCC last 24 hours, there was some air leak and is connected to suction, patient was requiring 15 L nasal cannula. Pulmonary consulted to assist in postoperative respiratory status. Patient seen at bedside and is seen lying comfortably in bed, just returned from chair. Other than discomfort at the surgical site denied any other complaints. Pulling up to 1200 cc on incentive spirometry. Clinically appears stable. Labs and imaging reviewed. Medications/Allergies Home Medications Medication Instructions Recorded Confirmed Last Taken Type albuterol sulfate 90 mcg/actuation 2 puff INHALATION Q4H PRN gm 12/23/19 08/20/21 08/18/21 History aerosol inhaler (ProAir HFA) aspirin 81 mg tablet,delayed 81 mg PO DAILY 12/23/19 08/14/21 07/30/21 History release (Adult Low Dose Aspirin) fluoxetine 40 mg capsule 40 mg PO DAILY 12/23/19 08/20/21 08/19/21 History fluticasone fur. 100 mcg-umeclid 1 inh INHALATION DAILY 12/23/19 08/20/21 08/20/21 06:30 History 62.5 mcg-vilant 25 mcg inhalat.powder (Trelegy Ellipta) meloxicam 15 mg tablet 15 mg PO DAILY PRN 12/23/19 08/20/21 08/13/21 History saw palmetto 500 mg capsule 500 mg PO DAILY cap 12/23/19 08/20/21 08/19/21 History sildenafil 50 mg tablet 50 mg PO .3x weekly PRN tab 12/23/19 08/20/21 07/22/21 History simvastatin 40 mg tablet 40 mg PO DAILY 12/23/19 08/20/21 08/19/21 History Allergies Allergy/AdvReac Type Severity Reaction Status Date / Time No Known Allergies Allergy Verified 08/20/21 07:24 Current Medications Generic Name Dose Route Start Last Admin Trade Name Freq PRN Reason Stop Dose Admin Albuterol Sulfate 2 puff 08/20/21 19:48 08/22/21 05:53 Albuterol 8 Gm Mdi INHALATION 2 puff Q4H PRN Administration Shortness Of Breath Atorvastatin Calcium 20 mg 08/21/21 09:00 08/22/21 08:31 Atorvastatin 40 Mg Tablet PO 20 mg DAILY ALISIA Administration Fluoxetine HCl 40 mg 08/21/21 09:00 08/22/21 08:31 Fluoxetine 20 Mg Capsule PO 40 mg DAILY ALISIA Administration Ropivacaine 200 mg in 100 mls @ 6 mls/hr 08/20/21 08:15 08/22/21 06:45 Naropin Premix EPIDURAL Not Given .[id number] ALISIA Lactated Ringer's 1,000 mls @ 100 mls/hr 08/22/21 07:15 08/22/21 07:43 Lactated Ringers IV 100 mls/hr .Q10H ALISIA Administration Ketorolac Tromethamine 30 mg 08/21/21 20:52 08/22/21 03:13 Ketorolac 30 Mg/Ml Inj IVP 08/26/21 20:51 30 mg Q6H PRN Administration MODERATE PAIN Morphine Sulfate 2 mg 08/20/21 19:48 08/22/21 06:06 Morphine 4 Mg/Ml Sdv 1 Ml IVP 2 mg Q1H PRN Administration SEVERE PAIN Non-Formulary Medication 1 inh 08/21/21 09:00 08/22/21 07:29 Xgayupxwyay-Xhtkqartn-Dqgtkorf [Trelegy Ellipta] INHALATION Not Given DAILY ALISIA Ondansetron HCl 4 mg 08/20/21 19:48 08/20/21 20:49 Ondansetron 2 Mg/Ml Sdv 2 Ml IVP 4 mg Q6H PRN Administration NAUSEA AND VOMITING Oxycodone/Acetaminophen 1 tab 08/20/21 19:48 08/22/21 02:22 Oxycodone-Apap 5-325 Mg Tablet PO 1 tab Q4H PRN Administration MODERATE PAIN Pantoprazole Sodium 40 mg 08/21/21 09:00 08/22/21 08:[address] 40 Mg Tablet PO 40 mg DAILY ALISIA Administration Temazepam 15 mg 08/21/21 20:53 08/21/21 21:05 Temazepam 15 Mg Capsule PO 15 mg BEDTIME PRN Administration INSOMNIA PFSH Acute PFSH: Medical History (Updated 08/22/21 @ 15:51 by Jonathan Padilla MD) COPD (chronic obstructive pulmonary disease) GERD (gastroesophageal reflux disease) Hyperlipidemia Surgical History History of eye surgery History of facial surgery History of laparoscopic appendectomy Family History Denies family history of Anesthesia complication Bleeding disorder Social History Smoking and tobacco status: current every day smoker cigarettes Packs smoked per day: 1 Years cigarettes smoked: 55 Second hand smoke exposure: No Alcohol intake: never Adopted: No Caregiver/support person: Yes Lives independently: Yes Household members: spouse Housing: House Marital status: service: Yes status: Retired branch: [employer] Current occupational status: retired Pets and animals: No History of recent travel: No Leisure activites: exercise, hunting and fishing Sexually active: Yes Current gender identity: Male Sylvia/Scientology: Scientologist Vitals/I&O/Wt Last Vital Signs Temp 97.9 F 08/22/21 01:00 Pulse 69 08/22/21 08:40 Resp 23 H 08/22/21 08:40 BP 98/62 08/22/21 08:40 Pulse Ox 91 08/22/21 08:40 08/21/21 08/22/21 08/22/21 22:59 06:59 14:59 Intake Total 340 / 1060 Output Total 790 / 790 890 / 1680 Balance -450 / 270 -890 / -620 Physical Exam Narrative: General: alert, NAD HEENT: conj clear, EOMI, PERRL, mmm, Neck: supple, no meningismus Heme: no cervical LAP Pulmonary: Reduced breath sounds on right, CTAB, no wheezing, rhonchi, crackles Cardiovascular: rrr, nl s1s2, no mrg Abdomen: soft, nt, nd, no r/g, bs+ Extremities: pulses +, no edema, no c/c : no CVA tenderness Skin: intact, no rash MSK: no back or neck pain Neurologic: grossly intact Urinary Catheter Management: Cross: Cath Placed During This Visit: yes Reason for Continuing Indwelling Catheter: Accurate Measurement of Urinary Outpu t in Critically Ill Patients Urinary Catheter Date of Insertion: 08/20/21 Urinary Catheter Time of Insertion: 14:15 Data : 08/22/21 06:00 08/22/21 06:00 Other Labs: Radiology Impressions Chest X-Ray 08/22/21 06:00 IMPRESSION: Stable right pleuroparenchymal disease. Laboratory Results WBC 10.6 10^3/uL (4.0-10.0) H 08/22/21 06:00 RBC 4.18 10^6/uL (4.1-5.3) 08/22/21 06:00 Hgb 13.7 g/dL (11.7-16.6) 08/22/21 06:00 Hct 41.6 % (42.0-52.0) L 08/22/21 06:00 MCV 99.5 fl (80-94) H 08/22/21 06:00 MCH 32.8 pg (28.0-34.0) 08/22/21 06:00 MCHC 32.9 g/dL (30.0-36.0) 08/22/21 06:00 RDW 14.0 % (12.1-15.1) 08/22/21 06:00 Plt Count 144 10^3/cmm (130-400) 08/22/21 06:00 MPV 9.8 fL (7.4-10.4) 08/22/21 06:00 Neut % (Auto) 77.5 % 08/22/21 06:00 Lymph % (Auto) 11.9 % 08/22/21 06:00 [place] % (Auto) 9.0 % 08/22/21 06:00 Eos % (Auto) 0.9 % 08/22/21 06:00 Baso % (Auto) 0.2 % 08/22/21 06:00 Neut # (Auto) 8.24 10^3/uL (1.8-7.7) H 08/22/21 06:00 Lymph # (Auto) 1.3 10^3/uL (0.8-4.8) 08/22/21 06:00 [place] # (Auto) 1.0 10^3/uL (0.2-0.9) H 08/22/21 06:00 Eos # (Auto) 0.1 10^3/uL (0.0-0.8) 08/22/21 06:00 Baso # (Auto) 0.0 10^3/uL (0.0-0.1) 08/22/21 06:00 Nucleated RBC % (auto) 0 % 08/22/21 06:00 Nucleated RBCs # 0.0 /100WBC 08/22/21 06:00 PT 13.10 SECONDS (12.1-14.9) 08/14/21 13:41 INR 0.96 (0.8-1.2) 08/14/21 13:41 Sodium 131 mmol/L (136-145) L 08/22/21 06:00 Potassium 4.3 mmol/L (3.5-5.1) 08/22/21 06:00 Chloride 98 mmol/L (98-107) 08/22/21 06:00 Carbon Dioxide 23 mmol/L (22-29) 08/22/21 06:00 Anion Gap 14.3 (5-19) 08/22/21 06:00 BUN 27 mg/dL (8-23) H 08/22/21 06:00 Creatinine 0.9 mg/dL (0.7-1.2) 08/22/21 06:00 GFR Calculation 83.4 mL/min (90-130) L 08/22/21 06:00 Glucose 109 mg/dL (65-115) 08/22/21 06:00 Calculated Osmolality 278 mOsm/kg (285-295) L 08/22/21 06:00 Calcium 8.8 mg/dL (8.5-10.5) 08/22/21 06:00 Urine Color Yellow (Yellow) 08/14/21 13:09 Urine Appearance Hazy (CLEAR) A 08/14/21 13:09 Urine pH 7 (5-7) 08/14/21 13:09 Ur Specific [place] 1.010 (1.005-1.030) 08/14/21 13:09 Urine Protein Neg (Negative) 08/14/21 13:09 Urine Glucose (UA) Norm (Normal) 08/14/21 13:09 Urine Ketones Negative (Negative) 08/14/21 13:09 Urine Blood Neg (Negative) 08/14/21 13:09 Urine Nitrate Negative (Negative) 08/14/21 13:09 Urine Bilirubin Neg (Negative) 08/14/21 13:09 Urine Urobilinogen Neg mg/dL (Negative) 08/14/21 13:09 Ur Leukocyte Esterase 1+ (Negative) H 08/14/21 13:09 Urine RBC 0-4 /hpf (0-2) H 08/14/21 13:09 Urine WBC 0-4 /hpf (0-5) H 08/14/21 13:09 Ur Squamous Epith Cells None /hpf (0-5) 08/14/21 13:09 Amorphous Sediment Not Reportable 08/14/21 13:09 Urine Bacteria None /hpf (NONE) 08/14/21 13:09 Blood Type O Positive 08/14/21 13:41 Rho(D) Type Positive 08/14/21 13:41 Antibody Screen Negative 08/14/21 13:41 Crossmatch See Detail 08/14/21 13:41 A&P Assessment and plan (1) Status post lobectomy of lung: Status: Acute (2) COPD (chronic obstructive pulmonary disease): Status: Acute (3) Right upper lobe pulmonary nodule: Status: Acute Plan #PET positive right upper lobe spiculated nodule SUV 5.8 - patient underwent right upper lobe and middle lobe lobectomy on 08/20/2021 - Pathology pending -Extubated uneventfully post surgery -Today postop day 2: 15 L nasal cannula-Taper down to 12 and saturating> 90% -Pulling up to 1200 cc on incentive spirometry. Clinically stable -Chest x-rays revealed continued loss of volume right and consistent with partial right pneumonectomy and expected left lung hyperinflation. -Recommended to sit out of bed to chair/bedside physical therapy/incentive spirometry -Prior to lobectomies-preoperative FEV1 of 2.47 which is 72% of predicted and DLCO 40% predicted.predicted postoperative FEV1 1.82 L and DLCO 29% mild improvement with bronchodilator.? -Reported using 1 to 2 L previously on exertion and sometimes at nighttime. -Given his predicted postoperative DLCO 29%-he may require continuous oxygen supplementation; plan is to taper him down from 12 l nasal cannula; plan is to continue bedside physical therapy, incentive spirometry and pulmonary toileting. -He needs pulmonary rehabilitation after discharge -We will repeat PFTs as outpatient -Right lateral chest tube-no air leak noted at bedside-280 cc output in last 24 hours-CT surgery is following #Stable large calcified PET negative left upper lobe lesion -This includes no evidence for kamaljit activity and there is no activity in the larger calcified left upper lobe lesion which has been followed for several years. #There is minimal FDG uptake in a 6 mm superior segment left lower lobe nodule - though this is too small to reliably characterize at this time.? This will need close follow-up.? #Evidence of emphysema on CT chest # reported smoking several packs a day for more than 50 years-recently down to less than 1 pack a day. -PFT 07/31/2021: The postbronchodilator spirometry is consistent with moderate airflow obstruction.? There is no significant postbronchodilator response.Lung volumes are normal. Gas exchange (DLCO) is moderately reduced -Continue DuoNeb every 6 hr PRN for shortness of breath and wheezing -Continue Trelegy 1 puff daily -Follow-up for COPD as outpatient in pulmonary clinic Regular diet Held anticoagulation-as patient still has epidural Full code DVT prophylaxis: SCDs Medical condition, prognosis, may need and plan t COPD patient, his and daughters at bedside. They verbalized understanding and agreed with the plan. Recommendations conveyed to Dr. Mccartney, RN, RT taking care of the patient Consult Attestations Medical Necessity Statement: Postop s/p right upper lobectomy-recovering p ostoperatively in the ICU Time Spent in Patient Care: Greater than 35 minutes (>than 50% of time spent in counselling and/or direct pt care on unit) . Critical Care Time: The high probability of a clinically significant, sudden or life threatening deterioration of the patient's [pulmonary system(s) required my full and direct attention, intervention and personal management. The critical care time is as shown. This time is in addition to time spent performing any reported procedures but includes the following: [x] Data and vital sign review and interpretation [x] Patient assessment, examination and intervention [x] Documentation [x] Medication orders and management Critical Care Time (min): 55 Coding Level of Care Code New Pt Acute Resource Room Special Education Teacher for Chg Fwd Patient Type New History Comprehensive Exam Comprehensive Medical Decision Making High Complexity Diagnoses Status post lobectomy of lung Z90.2 COPD (chronic obstructive pulmonary disease) J44.9 Right upper lobe pulmonary nodule R91.1 Time Spent (min) 55
--- NOTE | 2021-08-22 12:38 | PC.NURSE ---
Dr. Mccartney rounded again this afternoon. Air leak resolved in atrium chamber. Patient remains stable and continues to improve. Dr. Padilla consulted. No acute changes
--- NOTE | 2021-08-22 14:30 | PM.MISC ---
Miscellaneous Note Note: Epidural dressing intact, patient reporting pain well controlled. Will continue with current regimen
[2021-08-22] MEDS: alum-mag-hydroxide-sime 30 mL UDC PO (15:43)
--- NOTE | 2021-08-22 17:31 | PC.NURSE ---
PT desatted and c/o SOB, Dr. Phan notified. Oximask placed on pt. Spoke with MD and was instructed that pt had similar episode last night. Pt states that SOB has improved with oximask placement. Will wean o2 as tolerated.
[2021-08-22] MEDS: LORazepam 0.5 mg Tablet PO (20:10)
[2021-08-22] MEDS: ipratropium-albuterol 3 mL Neb INHALATION (20:24)
[2021-08-22] MEDS: temazepam 15 mg Capsule PO (21:03)
[2021-08-23] VITALS (46 sets, daily range): BP systolic 90–135; BP diastolic 60–95; PULSE 73–161; RESP 18–32; TEMP 36.9–37.1; O2SAT 87–97
[2021-08-23] MEDS: LORazepam 0.5 mg Tablet PO (01:23)
[2021-08-23] MEDS: morphine 4 mg/mL SDV 1 mL 2 MG IVP ×6 (01:47→21:30)
[2021-08-23] MEDS: oxyCODONE-APAP 5-325 mg Tablet 1 TAB PO ×2 (02:18→11:02)
[2021-08-23] MEDS: diphenhydrAMINE 25 mg Capsule PO (02:19)
--- NOTE | 2021-08-23 03:46 | CTR_ITS ---
PROCEDURE INFORMATION: Exam: CTA Chest With Contrast Exam date and time: 08/23/2021 6:09 AM Age: 70 years old Clinical indication: Dyspnea; Prior surgery; Surgery date: 3-7 days post-operative; Surgery type: RT middle lobectomy; Additional info: Possible pe TECHNIQUE: Imaging protocol: Computed tomographic angiography of the chest with contrast. 3D rendering (Not supervised by radiologist): MIP and/or 3D reconstructed images were created by the technologist. Radiation optimization: All CT scans at this facility use at least one of these dose optimization techniques: automated exposure control; mA and/or kV adjustment per patient size (includes targeted exams where dose is matched to clinical indication); or iterative reconstruction. Contrast material: OMNI 350; Contrast volume: 89 ml; Contrast route: INTRAVENOUS (IV); COMPARISON: CTA Chest-Pulmonary Emb [id number] 04/14/2017 3:31 PM RADIATION DOSE METRICS: Total DLP (mGy-cm): 604.29 FINDINGS: Tubes, catheters and devices: Right chest tube is in place terminating near the apex. Pulmonary arteries: Normal. No pulmonary emboli. Aorta: Unremarkable. No aortic aneurysm. No aortic dissection. Lungs: Status post right upper and middle lobectomies. There are patchy areas of consolidation throughout the right lower lobe. Background of emphysematous changes. Mild left basilar atelectasis. Similar large calcified mass lesion in the left upper lobe. There are also some mild ground-glass opacities in the lingula. Pleural spaces: Small left pleural effusion. Small right hydropneumothorax. Heart: Unremarkable. No cardiomegaly. No pericardial effusion. Lymph nodes: Unremarkable. No enlarged lymph nodes. Bones/joints: Remote left-sided rib fractures. Soft tissues: Unremarkable. CT/CT angio chest PE protcl [id number] IMPRESSION: 1. No pulmonary emboli identified. 2. Postsurgical changes of right upper and middle lobectomies. There is a small right hydropneumothorax. 3. There is evidence of aspiration or pneumonia in the right lower lobe and lingula.
[2021-08-23 04:34] LABS: Basophils % 0.2 %; Eosinophils % 0.4 %; Hematocrit 43.4 % (42.0-52.0); Hemoglobin 14.2 g/dL (11.7-16.6); Lymphocytes # 0.5 10^3/uL (0.8-4.8); Lymphocytes % 5.9 %; Mean Corpuscular HGB Conc 32.7 g/dL (30.0-36.0); Mean Corpuscular Hemoglobin 33.5 pg (28.0-34.0); Mean Corpuscular Volume 102.4 fl (80-94); Mean Platelet Volume 11.1 fL (7.4-10.4); Monocytes # 0.7 10^3/uL (0.2-0.9); Monocytes % 8.1 %; Neutrophils # 7.63 10^3/uL (1.8-7.7); Neutrophils % 84.8 %; Nucleated Red Blood Cells % 0 %; Platelet Count 155 10^3/cmm (130-400); Red Blood Count 4.24 10^6/uL (4.1-5.3); Red Cell Distribution Width 13.8 % (12.1-15.1)
[2021-08-23 04:57] LABS: Blood Urea Nitrogen 23 mg/dL (8-23); Calcium 8.9 mg/dL (8.5-10.5); Carbon Dioxide 25 mmol/L (22-29); Chloride 97 mmol/L (98-107); Glomerular Filtration Rate 111.5 mL/min (90-130); Glucose 121 mg/dL (65-115); Osmolality Calculated 277 mOsm/kg (285-295); Sodium 131 mmol/L (136-145)
[2021-08-23 05:17] LABS: Anion Gap 13.7 (5-19); Potassium 4.7 mmol/L (3.5-5.1)
--- NOTE | 2021-08-23 06:00 | XRR_ITS ---
PROCEDURE INFORMATION: Exam: XR Chest Exam date and time: 08/23/2021 6:15 AM Age: 70 years old Clinical indication: Dyspnea; Prior surgery; Surgery date: 3-7 days post-operative; Additional info: Postop day #3 status post right upper/middle lobectomies TECHNIQUE: Imaging protocol: XR of the chest. Views: 1 view. COMPARISON: CR XR chest 1V portable [id number] 08/22/2021 5:40 AM FINDINGS: Tubes, catheters and devices: Right chest tube is in place. Lungs: Increased airspace opacities in the right lung. Similar calcified lesion at the left lung apex. Pleural spaces: Small right pleural effusion. Heart/Mediastinum: Unremarkable. No cardiomegaly. Bones/joints: Unremarkable. XR/XR chest 1V portable [id number] IMPRESSION: 1. Increasing airspace opacities in the right lung, most consistent with aspiration or pneumonia. 2. Small right pleural effusion.
[2021-08-23] MEDS: iohexol 350 mg/mL 100 mL Btl IV (06:15)
--- NOTE | 2021-08-23 06:33 | PC.NURSE ---
Epidural catheter pulled by Dr. Phan at approximately 0520. Catheter intact. Pt had 4 episodes of desaturation overnight despite high oxygen use. The first episode, occurring around 1999, Dr. Phan was contacted, who contacted Dr. Padilla. Dr. Padilla ordered cpap, which was applied. Pt's saturations improved with cpap. Pt continued to have what appeared to be anxiety attacks causing desaturations 3 more times throughout the night, at approximately 2330, 0200, and 0330. Pt would wake up from sleeping and c/o SOB. Pt would desaturate into the high 70s or 80s. It took approximatley 10-15 minutes for the patient to recover. Several positioning interventions and anxiety medications were attempted to relieve the patient's SOB. These interventions were unsuccessful. At the 0330 attack, cpap was removed and oxymask was reapplied per pt request. Dr. Padilla was contacted due to the frequent attacks. Dr. Padilla ordered a CTA to be performed in the AM. Pt was taken to CT at approiximately 0530 and returned at 0615. Pt was disconnected from suction in order to transport to CT per Dr. Phan's verbal order. Pt was reconnected to suction while in CT. Pt maintained saturations while in CT and reported no SOB.
--- NOTE | 2021-08-23 06:55 | PC.NURSE ---
Bedside report completed with VIVEK Larson.
--- NOTE | 2021-08-23 06:56 | PM.PN ---
Subjective Subjective: Postop day #3 status post right upper lobectomy. Again, last night, Mr. Ibarra had at least 2 episodes of acute dyspnea and desaturation, both while sleeping. This was witnessed by the nurses. I conferred with my colleague Dr. Padilla earlier and we elected to initiate some positive pressure at night in case this was being precipitated by obstructive sleep apnea. Upon my rounds this morning at 5:30 AM he is on a Ventimask and saturating at 93%. I have elected to remove his epidural catheter and consideration of anticoagulation for possible PE. He is just returned from CT scanner suite. We are awaiting official radiographic reading of the study. His chest x-ray continues to reveal hyperexpansion of the left lung and some volume loss on the right lower lobe. Chest tube output is 590 cc past 24 hours, consistent with atelectasis of the right lower lobe. Chest tube output is more serous. H&H is stable. Electrolytes are normal. WBC count is 9.0. Vitals/I&O/Wt Last Vital Signs Temp 98.8 F 08/22/21 20:00 Pulse 93 08/23/21 06:30 Resp 23 H 08/23/21 06:30 BP 113/65 08/23/21 06:30 Pulse Ox 95 08/23/21 06:30 08/22/21 08/22/21 08/23/21 14:59 22:59 06:59 Intake Total 820 / 820 1360 / 2180 100 / 2280 Output Total 480 / 480 505 / 985 Balance 820 / 820 880 / 1700 -405 / 1295 Physical Exam Chest: OTHER: Chest wall is stable. Chest tube is in good position. No subcutaneous emphysema. Resp: OTHER: Decreased breath sounds on the right consistent with a chest x-ray and volume loss in the right lower lobe, presumably due to mediastinal shift from hyperinflation of the left lung. Cardio: OTHER: Regular rate and rhythm with episodes of tachycardia though currently normal rate Extremity: COMMON NORMALS: no clubbing, cyanosis or edema Urinary Catheter Management: Cross: Cath Placed During This Visit: yes Reason for Continuing Indwelling Catheter: Accurate Measurement of Urinary Output in Critically Ill Patients Urinary Catheter Date of Insertion: 08/20/21 Urinary Catheter Time of Insertion: 14:15 Data : 08/23/21 04:09 08/23/21 04:09 A&P Assessment and plan (1) Status post lobectomy of lung: Status: Acute Plan Postop day #3 status post lobectomy with episodic periods of desaturation, frequently occurring while sleeping. I have removed epidural catheter and consideration for initiating anticoagulation. We are currently awaiting official radiographic interpretation of CTA. Greatly appreciate expertise of Dr. Padilla. 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
[2021-08-23] MEDS: ipratropium-albuterol 3 mL Neb INHALATION (07:38)
[2021-08-23] MEDS: docusate sodium 100 mg Capsule PO ×2 (08:00→19:19)
[2021-08-23] MEDS: fluoxetine 20 mg Capsule 40 MG PO (08:01)
[2021-08-23] MEDS: ketorolac 30 mg/mL INJ IVP ×3 (08:01→19:18)
[2021-08-23] MEDS: pantoprazole DR 40 mg Tablet PO (08:07)
--- NOTE | 2021-08-23 08:13 | USCV_ITS ---
Giancarlo Ibarra Jr Age: 70 Gender: M : 1950 Exam Date: 08/23/2021 08:34 Ordering Phys: Gaston Mccartney MD (Andy) ([email or web address] [email or web address] Technologist: Luke Santiago Exam Location: [facility] – [place] Indication: post thorectomy BP: / HR: Rhythm: Sinus Technical Quality: Very technically difficult study MEASUREMENTS (Male / Female) Normal Values FINDINGS Left Ventricle Possibly normal LV size and ejection fraction. Could not do any segmental wall motion analysis. Only subcostal views were obtained Right Ventricle Right Atrium Left Atrium Mitral Valve Aortic Valve Tricuspid Valve Pulmonic Valve Pericardium No significant pericardial effusion. Aorta CONCLUSIONS Technically difficult study. Only subcostal views were obtained. Could not visualize the cardiac structures properly. The LV appears to be of normal size and ejection fraction. Segmental wall motion analysis is not possible. No significant pericardial effusion Dr Yulia Coulter MD FACC (Electronically Signed) Final Date: 23 Aug 2021 15:47 S
--- NOTE | 2021-08-23 08:55 | PC.SOCIAL ---
IMM update IMM updated with patient. Verbalized an understanding. Copy Pg 2 provided. Initialled, dated, timed, and placed in chart.
[2021-08-23 09:03] LABS: D Dimer 1.47 ug/mIFEU (0-0.59)
--- NOTE | 2021-08-23 09:06 | P.CONIM_ITS ---
Providers/Reason For Consult Consulting Physician/Specialty*: Rony Mendoza MD, hospitalist Reason for Consult*: Medical management Attending Physician: Gaston Mccartney MD Primary Care Provider: Kelly Mcguire History of Present Illness History of Present Illness Giancarlo Ibarra Jr is a 70 year old male who underwent right upper lobe and middle lobe lobectomies secondary to right upper lobe lung mass on August 20. Since that time he has had problems with oxygenation, and quick desaturation with any movement. He also had some confusion last night. There is a worry that his adia lity to oxygenate has worsened in the last 24 hours. Pulmonary critical care has been consulted, and is comanaging the patient with chest surgery. There was concern enough last night that a CTA was performed. This did not show any pulmonary embolism, but right lower lobe infiltrate was seen. This raises the concern of aspiration. He currently still has a chest tube on the right side, to suction. Patient himself is currently mildly confused. He can answer questions, but is impulsive and his actions according to nurses. Review of Systems 2 General: Reports: 10 or more systems reviewed and unremarkable except in HPI and below Const: Denies: fever(s) or chills Eyes: Denies: change in vision ENMT: Denies: throat pain Card: Reports: chest pain (Reports some chest discomfort from chest tube, but controlled) Resp: Reports: non-productive cough GI: Denies: abdominal pain : Denies: flank pain Musc: Denies: neck pain Skin/Breast: Denies: rash Neuro: Denies: headache(s) Psych: Denies: anxiety or depression Endo: Denies: polyuria Gurpreet/Lymph: Denies: easy bruising All/Imm: Denies: urticaria Medications/Allergies Home Medications Medication Instructions Recorded Confirmed Last Taken Type albuterol sulfate 90 mcg/actuation 2 puff INHALATION Q4H PRN gm 12/23/19 08/20/21 08/18/21 History aerosol inhaler (ProAir HFA) aspirin 81 mg tablet,delayed 81 mg PO DAILY 12/23/19 08/14/21 07/30/21 History release (Adult Low Dose Aspirin) fluoxetine 40 mg capsule 40 mg PO DAILY 12/23/19 08/20/21 08/19/21 History fluticasone fur. 100 mcg-umeclid 1 inh INHALATION DAILY 12/23/19 08/20/21 08/20/21 06:30 History 62.5 mcg-vilant 25 mcg inhalat.powder (Trelegy Ellipta) meloxicam 15 mg tablet 15 mg PO DAILY PRN 12/23/19 08/20/21 08/13/21 History saw palmetto 500 mg capsule 500 mg PO DAILY cap 12/23/19 08/20/21 08/19/21 History sildenafil 50 mg tablet 50 mg PO .3x weekly PRN tab 12/23/19 08/20/21 07/22/21 History simvastatin 40 mg tablet 40 mg PO DAILY 12/23/19 08/20/21 08/19/21 History Allergies Allergy/AdvReac Type Severity Reaction Status Date / Time No Known Allergies Allergy Verified 08/20/21 07:24 Current Medications Generic Name Dose Route Start Last Admin Trade Name Freq PRN Reason Stop Dose Admin Al Hydrox/Mg Hydrox/Simethicone 30 ml 08/20/21 19:48 08/22/21 15:43 Cmln-Iwe-Tlsdznirr-Pati 30 Ml Udc PO 30 ml Q4H PRN Administration INDIGESTION Albuterol/Ipratropium 3 ml 08/22/21 16:33 08/23/21 07:38 Ipratropium-Albuterol 3 Ml Neb INHALATION 3 ml Q6H PRN Administration SHORTNESS OF BREATH Atorvastatin Calcium 20 mg 08/21/21 09:00 08/22/21 08:31 Atorvastatin 40 Mg Tablet PO 20 mg DAILY ALISIA Administration Docusate Sodium 100 mg 08/20/21 19:48 08/23/21 08:00 Docusate Sodium 100 Mg Capsule PO 100 mg BID PRN Administration Constipation (Use 1st) Fluoxetine HCl 40 mg 08/21/21 09:00 08/23/21 08:01 Fluoxetine 20 Mg Capsule PO 40 mg DAILY ALISIA Administration Lactated Ringer's 1,000 mls @ 75 mls/hr 08/22/21 07:15 08/22/21 21:03 Lactated Ringers IV 100 mls/hr .[id number] ALISIA Administration Ketorolac Tromethamine 30 mg 08/21/21 20:52 08/23/21 08:01 Ketorolac 30 Mg/Ml Inj IVP 08/26/21 20:51 30 mg Q6H PRN Administration MODERATE PAIN Morphine Sulfate 2 mg 08/20/21 19:48 08/23/21 01:47 Morphine 4 Mg/Ml Sdv 1 Ml IVP 2 mg Q1H PRN Administration SEVERE PAIN Non-Formulary Medication 1 inh 08/21/21 09:00 08/22/21 07:29 Qqjxrmnoidi-Icxshabdi-Htvleedt [Trelegy Ellipta] INHALATION Not Given DAILY ALISIA Ondansetron HCl 4 mg 08/20/21 19:48 08/20/21 20:49 Ondansetron 2 Mg/Ml Sdv 2 Ml IVP 4 mg Q6H PRN Administration NAUSEA AND VOMITING Oxycodone/Acetaminophen 1 tab 08/20/21 19:48 08/23/21 02:18 Oxycodone-Apap 5-325 Mg Tablet PO 1 tab Q4H PRN Administration MODERATE PAIN Pantoprazole Sodium 40 mg 08/21/21 09:00 08/23/21 08:[address] 40 Mg Tablet PO 40 mg DAILY ALISIA Administration PFSH Acute PFSH: Medical History (Updated 08/23/21 @ 09:12 by Rony Mendoza MD) COPD (chronic obstructive pulmonary disease) GERD (gastroesophageal reflux disease) Hyperlipidemia Lung mass Surgical History History of eye surgery History of facial surgery History of laparoscopic appendectomy Family History Denies family history of Anesthesia complication Bleeding disorder Social History Smoking and tobacco status: current every day smoker cigarettes Packs smoked per day: 1 Years cigarettes smoked: 55 Second hand smoke exposure: No Alcohol intake: never Adopted: No Caregiver/support person: Yes Lives independently: Yes Household members: spouse Housing: House Marital status: service: Yes status: Retired branch: [employer] Current occupational status: retired Pets and animals: No History of recent travel: No Leisure activites: exercise, hunting and fishing Sexually active: Yes Current gender identity: Male Sylvia/Congregational: Hinduism Vitals/I&O/Wt Last Vital Signs Temp 98.8 F 08/22/21 20:00 Pulse 93 08/23/21 06:30 Resp 23 H 08/23/21 06:30 BP 113/65 08/23/21 06:30 Pulse Ox 95 08/23/21 06:30 08/22/21 08/23/21 08/23/21 22:59 06:59 14:59 Intake Total 1360 / 2180 100 / 2280 Output Total 480 / 480 825 / 1305 Balance 880 / 1700 -725 / 975 Physical Exam Narrative: General exam is a conversant male, slightly tachypneic, in no distress. Currently on 15 L. HEENT: Pupils equally round. Oropharynx clear. Neck is supple no lymphadenopathy or thyromegaly Cardiovascular regular rate and rhythm, without murmur Lungs diminished breath sounds bilaterally but no wheezes or crackles. Chest tube noted. Abdomen is soft with positive bowel sounds. No obvious organomegaly exam is deferred Extremities no cyanosis clubbing or edema, cap refill brisk. Urinary Catheter Management: Cross: Cath Placed During This Visit: yes Reason for Continuing Indwelling Catheter: Accurate Measurement of Urinary Output in Critically Ill Patients Urinary Catheter Date of Insertion: 08/20/21 Urinary Catheter Time of Insertion: 14:15 Data : 08/23/21 04:09 08/23/21 04:09 Micro: CTA showed no pulmonary embolism, postsurgical changes and evidence of pneumonia in the right lower lobe A&P Assessment and plan (1) Lung mass: He is postoperative day #3, status post right upper lobectomy. Some concerns with recovery secondary to confusion and hypoxia. No pulmonary embolism seen on CTA. Status: Acute (2) Pneumonia: CTA shows right lower lobe pneumonia. This could represent aspiration. Pulmonary critical care and cardiothoracic surgery has ordered Zosyn, and speech therapy consultation which is appropriate. Pending the speech therapy consultation will change diet to pur?ed with nectar thick liquids Sputum culture ordered He is already on pulmonary toilet Status: Acute (3) Confusion: Confusion is consistent with delirium. He has no focal deficits. He had a fair amount of medications to calm him yesterday and last night including Benadryl, lorazepam, temazepam. We will discontinue these in case they are contributing to confusion. If delirium continues could consider Haldol Status: Acute (4) Hyponatremia: Mild hyponatremia. No evidence of fluid overload. Overall 600 cc negative for this hospitalization. Reduce LR to 75 cc an hour as he is taking some fluids. Continue to monitor electrolytes closely. Status: Acute (5) COPD (chronic obstructive pulmonary disease): Pulmonary toilet is already been ordered Status: Acute Plan Other medical problems as listed in past medical history SCDs for DVT prophylaxis Anticoagulation, DVT dosing, when appropriate per cardiothoracic surgery and pulmonary. Patient still has chest tube at this time. 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
--- NOTE | 2021-08-23 09:38 | USCV_ITS ---
Giancarlo Ibarra Jr Age: 70 Gender: M : 1950 Exam Date: 08/23/2021 13:30 Ordering Phys: Rony Mendoza MD Technologist: Luke Santiago Exam Location: [facility] – [place], [place] Indication: post surg chest pain PROCEDURES: The venous duplex Doppler examination of both lower extremities was performed in the standard fashion. The following venous structures were evaluated: common femoral vein, profunda vein, proximal portion of the greater saphenous vein, superficial femoral vein, and the popliteal vein. In addition, the posterior tibial and peroneal trunk were evaluated. Bilaterally, the common femoral, superficial femoral, profunda femoral, popliteal, posterior tibial, greater saphenous veins, and the peroneal trunk were identified and interrogated in the standard fashion. These veins were found to be easily compressible with spontaneous blood flow. No evidence of insufficiency or thrombus noted. FINDINGS: Normal 2-D Doppler and augmentation and compressibility throughout the lower extremity venous structures. Additional imaging through the proximal calf veins also reveals no thrombus. Limited evaluation of the greater saphenous vein is patent with no thrombus.. CONCLUSIONS No evidence of right lower extremity DVT. No evidence of left lower extremity DVT. Usama Denney MD (Electronically Signed) Final Date: 23 Aug 2021 16:05 S
[2021-08-23] MEDS: piperacillin-tazobactam 3.375 GM in sodium chloride 0.9% (plus) 50 ML IV ×2 (09:43→17:31)
[2021-08-23] MEDS: lactated ringers 1,000 ML 100 ML IV (09:44)
[2021-08-23] MEDS: atorvastatin 40 mg Tablet 20 MG PO (09:51)
--- NOTE | 2021-08-23 11:00 | PC.NURSE ---
at bedside, pouring pt coffee. Pt refused to have thickener in his coffee at this time.
[2021-08-23] MEDS: metoprolol tartrate 1 mg/1 mL SDV 5 mL 5 MG IVP (12:28)
--- NOTE | 2021-08-23 12:29 | ECG_ITS ---
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 Measurements Intervals [place] Rate: 161 P: MD: QRS: -10 QRSD: 93 T: 39 QT: 289 QTc: 474 Interpretive Statements ATRIAL FIBRILLATION WITH RAPID VENTRICULAR RESPONSE CRITICAL TEST RESULT Compared to ECG 08/14/2021 13:27:25 Sinus rhythm no longer present Sinus arrhythmia no longer present Incomplete right bundle-branch block no longer present Electronically Signed On 08-23-2021 20:19:14 CDT by Yulia Coulter M.D. [email or web address]
[2021-08-23 13:03] LABS: Magnesium 2.3 mg/dL (1.7-2.3); Thyroid Stimulating Hormone 1.34 uIU/mL (0.27-4.20)
[2021-08-23] MEDS: heparin drip 25,000 UNIT/500 ML PREMIX 23 UNIT IV (13:06)
[2021-08-23] MEDS: heparin 5,000 unit/mL INJ 1 mL IV ×2 (13:15→21:25)
--- NOTE | 2021-08-23 13:15 | PC.NURSE ---
Pt became very short of breath. Heart rate 165. Encouraged pt to cough, heart rate back to 110's briefly, then back u p to 160's. Dr Mendoza on unit notified , Metoprolol 5mg IVP ordered and administered. NO significant change noted, heart rate 140-150's. Amiodarone gtt ordered and started. New IV started. Heart rate down to 130-140, pt still short of breath but improving.
--- NOTE | 2021-08-23 13:30 | PC.NURSE ---
Chest tube now to water seal.
--- NOTE | 2021-08-23 14:42 | ANE.PACU2 ---
Inpatient post-anesthesia follow up: Airway intact: Yes Vital signs: Temperature 98.8 F Pulse Rate 161 Respiratory Rate 22 Blood Pressure 113/65 Pulse Oximetry 94 Oxygen Delivery Me thod Oxymask Oxygen Flow Rate 15 Fraction of Inspir ed Oxygen Hydration adequate: Yes Nausea and vomiting: No Pain level: 3 Mental status: Baseline Additional Comments: Epidural removed by surgery this morning, site C/D/I.
--- NOTE | 2021-08-23 15:03 | P.PN_ITS ---
Subjective Subjective: -Postop day #3 status post right upper and middle lobectomy- pathology still pending -Patient had couple of episodes 2 episodes of acute dyspnea and desaturation to low 70s both while sleeping and witnessed by the nurses. -Started patient on CPAP 10 as he may have component of undiagnosed KUSH -Other considerations for hypoxic episodes-May be exacerbation of undiagnosed ASD/PFO-ordered CV echo today morning -Underwent CTA today morning which ruled out pulmonary embolism but showed right lower lobe infiltrate suggestive of aspiration. Speech therapy consulted and evaluated and started patient on mechanical soft Pur?ed diet -His chest x-ray continues to reveal hyperexpansion of the left lung and some volume loss on the right lower lobe. -Chest tube output is 590 cc past 24 hours and appear more serous in nature consistent with atelectasis of the right lower lobe. -Saturating 97% on 12 L Venturi mask-later requiring 6 L on oxygen pendant -Afternoon patient developed atrial fibrillation and received the pulm pressures and started on amiodarone drip -Other labs and imaging reviewed Medications: Reviewed: Yes Vitals/I&O/Wt Last Vital Signs Temp 98.8 F 08/22/21 20:00 Pulse 161 H 08/23/21 12:29 Resp 22 H 08/23/21 11:02 BP 113/65 08/23/21 06:30 Pulse Ox 94 08/23/21 11:02 08/23/21 08/23/21 08/23/21 06:59 14:59 22:59 Intake Total 100 / 2280 1000 / 1000 Output Total 825 / 1305 Balance -725 / 975 1000 / 1000 Weight last 48 hrs Weight 177 lb 14.609 oz Weight 177 lb 11.2 oz Physical Exam Narrative: General: alert, NAD HEENT: conj clear, EOMI, PERRL, mmm, Neck: supple, no meningismus Heme: no cervical LAP Pulmonary: Reduced breath sounds on right, CTAB, no wheezing, rhonchi, crackles Cardiovascular: rrr, nl s1s2, no mrg Abdomen: soft, nt, nd, no r/g, bs+ Extremities: pulses +, no edema, no c/c : no CVA tenderness Skin: intact, no rash MSK: no back or neck pain Neurologic: grossly intact Urinary Catheter Management: Cross: Cath Placed During This Visit: yes Reason for Continuing Indwelling Catheter: Accurate Measurement of Urinary Output in Critically Ill Patients Urinary Catheter Date of Insertion: 08/20/21 Urinary Catheter Time of Insertion: 14:15 Data : 08/23/21 04:09 08/23/21 04:09 Other Labs: Radiology Impressions Chest CTA 08/23/21 03:46 IMPRESSION: 1. No pulmonary emboli identified. 2. Postsurgical changes of right upper and middle lobectomies. There is a small right hydropneumothorax. 3. There is evidence of aspiration or pneumonia in the right lower lobe and lingula. Chest X-Ray 08/23/21 06:00 IMPRESSION: 1. Increasing airspace opacities in the right lung, most consistent with aspiration or pneumonia. 2. Small right pleural effusion. Laboratory Results WBC 9.0 10^3/uL (4.0-10.0) 08/23/21 04:09 RBC 4.24 10^6/uL (4.1-5.3) 08/23/21 04:09 Hgb 14.2 g/dL (11.7-16.6) 08/23/21 04:09 Hct 43.4 % (42.0-52.0) 08/23/21 04:09 MCV 102.4 fl (80-94) H 08/23/21 04:09 MCH 33.5 pg (28.0-34.0) 08/23/21 04:09 MCHC 32.7 g/dL (30.0-36.0) 08/23/21 04:09 RDW 13.8 % (12.1-15.1) 08/23/21 04:09 Plt Count 155 10^3/cmm (130-400) 08/23/21 04:09 MPV 11.1 fL (7.4-10.4) H 08/23/21 04:09 Neut % (Auto) 84.8 % 08/23/21 04:09 Lymph % (Auto) 5.9 % 08/23/21 04:09 Kimble % (Auto) 8.1 % 08/23/21 04:09 Eos % (Auto) 0.4 % 08/23/21 04:09 Baso % (Auto) 0.2 % 08/23/21 04:09 Neut # (Auto) 7.63 10^3/uL (1.8-7.7) 08/23/21 04:09 Lymph # (Auto) 0.5 10^3/uL (0.8-4.8) L 08/23/21 04:09 Kimble # (Auto) 0.7 10^3/uL (0.2-0.9) 08/23/21 04:09 Eos # (Auto) 0.0 10^3/uL (0.0-0.8) 08/23/21 04:09 Baso # (Auto) 0.0 10^3/uL (0.0-0.1) 08/23/21 04:09 Nucleated RBC % (auto) 0 % 08/23/21 04:09 Nucleated RBCs # 0.0 /100WBC 08/23/21 04:09 PT 13.10 SECONDS (12.1-14.9) 08/14/21 13:41 INR 0.96 (0.8-1.2) 08/14/21 13:41 D-Dimer 1.47 ug/mIFEU (0-0.59) H 08/23/21 08:33 Sodium 131 mmol/L (136-145) L 08/23/21 04:09 Potassium 4.7 mmol/L (3.5-5.1) 08/23/21 04:09 Chloride 97 mmol/L (98-107) L 08/23/21 04:09 Carbon Dioxide 25 mmol/L (22-29) 08/23/21 04:09 Anion Gap 13.7 (5-19) 08/23/21 04:09 BUN 23 mg/dL (8-23) 08/23/21 04:09 Creatinine 0.7 mg/dL (0.7-1.2) 08/23/21 04:09 GFR Calculation 111.5 mL/min (90-130) 08/23/21 04:09 Glucose 121 mg/dL (65-115) H 08/23/21 04:09 Calculated Osmolality 277 mOsm/kg (285-295) L 08/23/21 04:09 Calcium 8.9 mg/dL (8.5-10.5) 08/23/21 04:09 Magnesium 2.3 mg/dL (1.7-2.3) 08/23/21 04:09 TSH 1.34 uIU/mL (0.27-4.20) 08/23/21 04:09 Urine Color Yellow (Yellow) 08/14/21 13:09 Urine Appearance Hazy (CLEAR) A 08/14/21 13:09 Urine pH 7 (5-7) 08/14/21 13:09 Ur Specific [place] 1.010 (1.005-1.030) 08/14/21 13:09 Urine Protein Neg (Negative) 08/14/21 13:09 Urine Glucose (UA) Norm (Normal) 08/14/21 13:09 Urine Ketones Negative (Negative) 08/14/21 13:09 Urine Blood Neg (Negative) 08/14/21 13:09 Urine Nitrate Negative (Negative) 08/14/21 13:09 Urine Bilirubin Neg (Negative) 08/14/21 13:09 Urine Urobilinogen Neg mg/dL (Negative) 08/14/21 13:09 Ur Leukocyte Esterase 1+ (Negative) H 08/14/21 13:09 Urine RBC 0-4 /hpf (0-2) H 08/14/21 13:09 Urine WBC 0-4 /hpf (0-5) H 08/14/21 13:09 Ur Squamous Epith Cells None /hpf (0-5) 08/14/21 13:09 Amorphous Sediment Not Reportable 08/14/21 13:09 Urine Bacteria None /hpf (NONE) 08/14/21 13:09 Blood Type O Positive 08/14/21 13:41 Rho(D) Type Positive 08/14/21 13:41 Antibody Screen Negative 08/14/21 13:41 Crossmatch See Detail 08/14/21 13:41 A&P Assessment and plan (1) Status post lobectomy of lung: Status: Acute (2) COPD (chronic obstructive pulmonary disease): Status: Acute (3) Right upper lobe pulmonary nodule: Status: Acute (4) Aspiration pneumonia: Status: Acute Plan #PET positive right upper lobe spiculated nodule SUV 5.8 - patient underwent right upper lobe and middle lobe lobectomy on 08/20/2021 - Pathology pending -Extubated uneventfully post surgery -Today postop day 3: -Saturating 97% on 12 L Venturi mask-later requiring 6 L on oxygen pendant -Pulling up to 1000 cc on incentive spirometry. Clinically stable -Epidural removed toda -Currently pain is being managed by Toradol, morphine 1 mg IV push every hour as needed Percocet as needed - CTA visit 2021 which ruled out pulmonary embolism but showed right lower lobe infiltrate suggestive of aspiration. Speech therapy consulted and reported mild risk of aspiration especially with liquids and so started patient on mechanical soft with nectar thick liquids; also started on Zosyn for aspiration and send for sputum cultures - Chest x-ray continues to reveal hyperexpansion of the left lung and some volume loss on the right lower lobe. -Recommended to sit out of bed to chair/bedside physical therapy/incentive spirometry -Prior to lobectomies-preoperative FEV1 of 2.47 which is 72% of predicted and DLCO 40% predicted.predicted postoperative FEV1 1.82 L and DLCO 29% mild improvement with bronchodilator.?Reported using 1 to 2 L previously on exertion and sometimes at nighttime. -Given his predicted postoperative DLCO 29%-he may require continuous oxygen supplementation; plan is to taper him down from 12 L nasal cannula and intermittent -He needs pulmonary rehabilitation after discharge -We will repeat PFTs as outpatient -Right lateral chest tube-no air leak noted at bedside-590 cc liters output in last 24 hours-CT surgery is following # Patient had couple of episodes 2 episodes of acute dyspnea and desaturation to low 70s both sleeping and witnessed by the nurses. -Started patient on CPAP 10 as he may have component of undiagnosed KUSH - needs sleep study post discharge -Other considerations for hypoxic episodes-May be exacerbation of undiagnosed ASD/PFO-ordered CV echo today morning currently awaiting report #Stable large calcified PET negative left upper lobe lesion -This includes no evidence for kamaljit activity and there is no activity in the larger calcified left upper lobe lesion which has been followed for several years. #There is minimal FDG uptake in a 6 mm superior segment left lower lobe nodule - though this is too small to reliably characterize at this time.? This will need close follow-up.? #Evidence of emphysema on CT chest # reported smoking several packs a day for more than 50 years-recently down to less than 1 pack a day. -PFT 07/31/2021: The postbronchodilator spirometry is consistent with moderate airflow obstruction.? There is no significant postbronchodilator response.Lung volumes are normal. Gas exchange (DLCO) is moderately reduced -Continue DuoNeb every 6 hr PRN for shortness of breath and wheezing -Continue Trelegy 1 puff daily -Follow-up for COPD as outpatient in pulmonary clinic #A. fib with RVR -Received metoprolol IV pushes and started on amiodarone drip -Electrolytes within normal limits -started on heparin drip Regular diet-mechanical soft with nectar liquids Full code DVT prophylaxis: already on heparin drip Updated family.. They verbalized understanding and agreed with the plan. Recommendations conveyed to Dr. Mccartney/Dr. Mendoza RN, RT taking care of the patient Attestations Medical Necessity Statement*: - Postop day 3-needs close monitoring in ICU for A. fib with RVR/hypoxia Time Spent in Patient Care: Greater than 35 minutes (>than 50% of time spent in counselling and/or direct pt care on unit) . Critical Care Time: The high probability of a clinically significant, sudden or life threatening deterioration of the patient's [pulmonary, cardiac system(s) required my full and direct attention, intervention and personal management. The critical care time is as shown. 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
--- NOTE | 2021-08-23 19:00 | PC.NURSE ---
Bedside report completed with VIVEK Fuentes.
--- NOTE | 2021-08-23 19:10 | PC.NURSE ---
Heart rhythm converted back to sinus rhythm.
--- NOTE | 2021-08-23 20:00 | PC.NURSE ---
Shift Note: Pt agitated and fidgety this am. He was able to answer questions appropriately. He was up to chair from before breakfast until about 1045 when he insisted on going back to bed because his back was hurting. He received Toradol twice and oxycodone once this shift for pain. Toradol worked better than oxycodoone. Morphine worked best , he received 2 doses this afternoon , with which he became much more calmer and no fidgeting. His , at bedside, noticed and commented on the improvement. He went into A-fib around lunch, metoprolol did not seem to help. Amiodarone gtt started. Heparin gtt started today. His shortness of breath improved. He stayed in bed the rest of the shift due to heart rate. His diet was changed to mechanical soft and nectar thickened liquids today. Speech therapy will re-evaluated again tomorrow. Chest tube output of 145 and urine output of 4400ml this shift. Frequent safety and comfort rounds continue. Orders and/or nursing care completed as indicated. Patient monitored for response to intervention and treatment(s). Education provided includes Lasix, amiodarone, heparin, morphine, toradol, a fib, speech therapy and diet change and ongoing care Patient and/or product representative asked questions and verbalized understanding of medications, a-fib, breathing, ongoing care and plan of care. Will continue to monitor.
[2021-08-23 20:11] LABS: Partial Thromboplastin Time 46.9 SECONDS (23.9-36.7)
[2021-08-24] VITALS (33 sets, daily range): BP systolic 97–120; BP diastolic 59–85; PULSE 51–85; RESP 13–30; TEMP 36.6–37.3; O2SAT 90–97
[2021-08-24] MEDS: piperacillin-tazobactam 3.375 GM in sodium chloride 0.9% (plus) 50 ML IV ×3 (02:42→16:51)
[2021-08-24 04:23] LABS: Partial Thromboplastin Time 70.4 SECONDS (23.9-36.7)
[2021-08-24] MEDS: ketorolac 30 mg/mL INJ IVP ×2 (06:05→18:12)
--- NOTE | 2021-08-24 06:49 | XRR_ITS ---
PROCEDURE INFORMATION: Exam: XR Chest Exam date and time: 08/24/2021 7:06 AM Age: 70 years old Clinical indication: Shortness of breath; Prior surgery; Surgery date: 3-7 days post-operative; Surgery type: Lobectomy; Additional info: S/P lobectomy, possible aspiration TECHNIQUE: Imaging protocol: XR of the chest. Views: 1 view. COMPARISON: CR (CHEST, ) 08/23/2021 6:15 AM FINDINGS: Tubes, catheters and devices: Right chest tube is in similar position. Lungs: Status post right upper and middle lobectomies. Similar right lung airspace opacities. Similar calcified lesion at the left lung apex. Pleural spaces: Similar small right pleural effusion. No pneumothorax is apparent radiographically. Heart/Mediastinum: Unremarkable. No cardiomegaly. Bones/joints: Unremarkable. XR/XR chest 1V portable [id number] IMPRESSION: No substantial interval change. Similar right lung airspace opacities with small right pleural effusion. No pneumothorax is discernible radiographically.
--- NOTE | 2021-08-24 07:56 | PM.PN ---
Subjective Subjective: Postop day #4 status post lobectomy. Mr. Stewart did have 1 episode of desaturation acutely while watching TV last night and responded well to Ventimask with recovery. No other episodes. This morning he sitting up in the bed with O2 saturation of 93 to 94%. Chest tube output reported at 140 cc past 12 hours. Chest x-ray reveals some consolidation in the lower portion of the right lower lobe. Left lung remains clear. Mediastinal slight rightward shift is unchanged. Cardiac silhouette is unchanged. Ultrasound yesterday revealed negative findings for lower extremity DVT. He currently is on heparin. His CTA was negative for PE. Vitals/I&O/Wt Last Vital Signs Temp 97.9 F 08/24/21 00:30 Pulse 73 08/24/21 06:00 Resp 21 H 08/24/21 06:00 BP 116/67 08/24/21 06:00 Pulse Ox 96 08/24/21 06:00 08/23/21 08/24/21 08/24/21 22:59 06:59 14:59 Intake Total 781.667 / 3511.334 480 / 3991.334 Output Total 2125 / 4695 1110 / 5805 Balance -1343.333 / -1183.666 -630 / -1813.666 Weight last 48 hrs Weight 177 lb 1.6 oz Weight 177 lb 14.609 oz Weight 177 lb 14.609 oz Weight 177 lb 11.2 oz Physical Exam Chest: OTHER: Chest wall is stable. Surgical dressings were removed. Thoracotomy incision is clean, dry, and intact. This was reprepped and recovered. Right pleural tube was removed. Urinary Catheter Management: Cross: Cath Placed During This Visit: yes Reason for Continuing Indwelling Catheter: Accurate Measurement of Urinary Output in Critically Ill Patients Urinary Catheter Date of Insertion: 08/20/21 Urinary Catheter Time of Insertion: 14:15 Data : 08/23/21 04:09 08/23/21 04:09 A&P Assessment and plan (1) Status post lobectomy of lung: Postop day #4. Greatly appreciate the expertise and assistance of our hospitalist colleagues on Dr. Padilla . Findings are consistent with suspicion of aspiration pneumonia on the right. He currently is on Zosyn. Will await rounding of my colleagues. If consensus, may DC Cross at their discretion. Continue pulmonary toilet. Diet was adjusted per speech pathology and will be reassessed today. I will place a consult for physical therapy to assist with some light weights for the upper extremities and ankle weights. CBC, BMP, chest x-ray in a.m. Status: Acute Attestations Medical Necessity Statement*: Postop day #4 status post right lobectomy. Postop pneumonia. Coding Level of Care Code Acute Merchandise For Res[employer] Purchasing Agent for Chg Fwd Diagnoses Status post lobectomy of lung Z90.2
[2021-08-24] MEDS: morphine 4 mg/mL SDV 1 mL 2 MG IVP (08:49)
[2021-08-24 09:18] LABS: Basophils % 0.1 %; Eosinophils # 0.1 10^3/uL (0.0-0.8); Eosinophils % 1.7 %; Hematocrit 40.2 % (42.0-52.0); Hemoglobin 13.8 g/dL (11.7-16.6); Lymphocytes # 0.8 10^3/uL (0.8-4.8); Mean Corpuscular HGB Conc 34.3 g/dL (30.0-36.0); Mean Corpuscular Hemoglobin 33.4 pg (28.0-34.0); Mean Corpuscular Volume 97.3 fl (80-94); Mean Platelet Volume 10.5 fL (7.4-10.4); Monocytes # 0.7 10^3/uL (0.2-0.9); Monocytes % 9.2 %; Neutrophils # 5.94 10^3/uL (1.8-7.7); Neutrophils % 78.3 %; Nucleated Red Blood Cells % 0 %; Platelet Count 165 10^3/cmm (130-400); Red Blood Count 4.13 10^6/uL (4.1-5.3); Red Cell Distribution Width 13.6 % (12.1-15.1); White Blood Count 7.6 10^3/uL (4.0-10.0)
[2021-08-24 09:50] LABS: Alanine Aminotransferase 35 U/L (0-41); Albumin Level 3.3 g/dL (3.5-5.2); Alkaline Phosphatase 85 IU/L (40-130); Anion Gap 13.2 (5-19); Aspartate Amino Transferase 51 U/L (0-40); Blood Urea Nitrogen 13 mg/dL (8-23); Calcium 8.6 mg/dL (8.5-10.5); Carbon Dioxide 26 mmol/L (22-29); Chloride 99 mmol/L (98-107); Globulin 2.2 g/dL (1.3-4.6); Glomerular Filtration Rate 133.2 mL/min (90-130); Glucose 104 mg/dL (65-115); Osmolality Calculated 278 mOsm/kg (285-295); Potassium 4.2 mmol/L (3.5-5.1); Sodium 134 mmol/L (136-145); Total Bilirubin 0.8 mg/dL (0.15-1.2); Total Protein 5.5 g/dL (6.6-8.7)
[2021-08-24] MEDS: heparin drip 25,000 UNIT/500 ML PREMIX 25 UNIT IV (09:51)
--- NOTE | 2021-08-24 10:04 | P.PN_ITS ---
Subjective Subjective: - Postop day #4 status post lobectomy. - 1 episode of desaturation responded quickly with Ventimask No other episodes. - Chest tube output reported at 140 cc serous fluid past 12 hours-removed by CT surgery -Chest x-ray reveals some consolidation in the lower portion of the right lower lobe. Left lung remains clear. Mediastinal slight rightward shift is unchanged. Cardiac silhouette is unchanged. -Saturating 97% on 6 L oxygen pendant -Good urine output-good urine output over last 24 hours net -1.8 L-we will DC Cross -Labs and imaging reviewed Medications: Reviewed: Yes Vitals/I&O/Wt Last Vital Signs Temp 97.9 F 08/24/21 00:30 Pulse 70 08/24/21 09:44 Resp 20 H 08/24/21 09:44 BP 116/67 08/24/21 06:00 Pulse Ox 94 08/24/21 09:44 08/23/21 08/24/21 08/24/21 22:59 06:59 14:59 Intake Total 781.667 / 3511.334 480 / 3991.334 Output Total 2125 / 4695 1110 / 5805 Balance -1343.333 / -1183.666 -630 / -1813.666 Weight last 48 hrs Weight 177 lb 1.6 oz Weight 177 lb 14.609 oz Weight 177 lb 14.609 oz Weight 177 lb 11.2 oz Physical Exam Narrative: General: alert, NAD HEENT: conj clear, EOMI, PERRL, mmm, Neck: supple, no meningismus Heme: no cervical LAP Pulmonary: Reduced breath sounds on right, CTAB, no wheezing, rhonchi, crackles Cardiovascular: rrr, nl s1s2, no mrg Abdomen: soft, nt, nd, no r/g, bs+ Extremities: pulses +, no edema, no c/c : no CVA tenderness Skin: intact, no rash MSK: no back or neck pain Neurologic: grossly intact Urinary Catheter Management: Cross: Cath Placed During This Visit: yes Reason for Continuing Indwelling Catheter: Accurate Measurement of Urinary Output in Critically Ill Patients Urinary Catheter Date of Insertion: 08/20/21 Urinary Catheter Time of Insertion: 14:15 Data : 08/24/21 08:48 08/24/21 08:48 Other Labs: Radiology Impressions Chest CTA 08/23/21 03:46 IMPRESSION: 1. No pulmonary emboli identified. 2. Postsurgical changes of right upper and middle lobectomies. There is a small right hydropneumothorax. 3. There is evidence of aspiration or pneumonia in the right lower lobe and lingula. Chest X-Ray 08/24/21 06:49 IMPRESSION: No substantial interval change. Similar right lung airspace opacities with small right pleural effusion. No pneumothorax is discernible radiographically. Laboratory Results WBC 7.6 10^3/uL (4.0-10.0) 08/24/21 08:48 RBC 4.13 10^6/uL (4.1-5.3) 08/24/21 08:48 Hgb 13.8 g/dL (11.7-16.6) 08/24/21 08:48 Hct 40.2 % (42.0-52.0) L 08/24/21 08:48 MCV 97.3 fl (80-94) H 08/24/21 08:48 MCH 33.4 pg (28.0-34.0) 08/24/21 08:48 MCHC 34.3 g/dL (30.0-36.0) 08/24/21 08:48 RDW 13.6 % (12.1-15.1) 08/24/21 08:48 Plt Count 165 10^3/cmm (130-400) 08/24/21 08:48 MPV 10.5 fL (7.4-10.4) H 08/24/21 08:48 Neut % (Auto) 78.3 % 08/24/21 08:48 Lymph % (Auto) 10.0 % 08/24/21 08:48 [place] % (Auto) 9.2 % 08/24/21 08:48 Eos % (Auto) 1.7 % 08/24/21 08:48 Baso % (Auto) 0.1 % 08/24/21 08:48 Neut # (Auto) 5.94 10^3/uL (1.8-7.7) 08/24/21 08:48 Lymph # (Auto) 0.8 10^3/uL (0.8-4.8) 08/24/21 08:48 [place] # (Auto) 0.7 10^3/uL (0.2-0.9) 08/24/21 08:48 Eos # (Auto) 0.1 10^3/uL (0.0-0.8) 08/24/21 08:48 Baso # (Auto) 0.0 10^3/uL (0.0-0.1) 08/24/21 08:48 Nucleated RBC % (auto) 0 % 08/24/21 08:48 Nucleated RBCs # 0.0 /100WBC 08/24/21 08:48 PT 13.10 SECONDS (12.1-14.9) 08/14/21 13:41 INR 0.96 (0.8-1.2) 08/14/21 13:41 APTT 48.0 SECONDS (23.9-36.7) H 08/24/21 08:48 D-Dimer 1.47 ug/mIFEU (0-0.59) H 08/23/21 08:33 Sodium 134 mmol/L (136-145) L 08/24/21 08:48 Potassium 4.2 mmol/L (3.5-5.1) 08/24/21 08:48 Chloride 99 mmol/L (98-107) 08/24/21 08:48 Carbon Dioxide 26 mmol/L (22-29) 08/24/21 08:48 Anion Gap 13.2 (5-19) 08/24/21 08:48 BUN 13 mg/dL (8-23) 08/24/21 08:48 Creatinine 0.6 mg/dL (0.7-1.2) L 08/24/21 08:48 GFR Calculation 133.2 mL/min (90-130) H 08/24/21 08:48 Glucose 104 mg/dL (65-115) 08/24/21 08:48 Calculated Osmolality 278 mOsm/kg (285-295) L 08/24/21 08:48 Calcium 8.6 mg/dL (8.5-10.5) 08/24/21 08:48 Magnesium 2.3 mg/dL (1.7-2.3) 08/23/21 04:09 Total Bilirubin 0.8 mg/dL (0.15-1.2) 08/24/21 08:48 AST 51 U/L (0-40) H 08/24/21 08:48 ALT 35 U/L (0-41) 08/24/21 08:48 Alkaline Phosphatase 85 IU/L (40-130) 08/24/21 08:48 Total Protein 5.5 g/dL (6.6-8.7) L 08/24/21 08:48 Albumin 3.3 g/dL (3.5-5.2) L 08/24/21 08:48 Globulin 2.2 g/dL (1.3-4.6) 08/24/21 08:48 TSH 1.34 uIU/mL (0.27-4.20) 08/23/21 04:09 Urine Color Yellow (Yellow) 08/14/21 13:09 Urine Appearance Hazy (CLEAR) A 08/14/21 13:09 Urine pH 7 (5-7) 08/14/21 13:09 Ur Specific [place] 1.010 (1.005-1.030) 08/14/21 13:09 Urine Protein Neg (Negative) 08/14/21 13:09 Urine Glucose (UA) Norm (Normal) 08/14/21 13:09 Urine Ketones Negative (Negative) 08/14/21 13:09 Urine Blood Neg (Negative) 08/14/21 13:09 Urine Nitrate Negative (Negative) 08/14/21 13:09 Urine Bilirubin Neg (Negative) 08/14/21 13:09 Urine Urobilinogen Neg mg/dL (Negative) 08/14/21 13:09 Ur Leukocyte Esterase 1+ (Negative) H 08/14/21 13:09 Urine RBC 0-4 /hpf (0-2) H 08/14/21 13:09 Urine WBC 0-4 /hpf (0-5) H 08/14/21 13:09 Ur Squamous Epith Cells None /hpf (0-5) 08/14/21 13:09 Amorphous Sediment Not Reportable 08/14/21 13:09 Urine Bacteria None /hpf (NONE) 08/14/21 13:09 Blood Type O Positive 08/14/21 13:41 Rho(D) Type Positive 08/14/21 13:41 Antibody Screen Negative 08/14/21 13:41 Crossmatch See Detail 08/14/21 13:41 A&P Assessment and plan (1) Status post lobectomy of lung: Status: Acute (2) COPD (chronic obstructive pulmonary disease): Status: Acute (3) Right upper lobe pulmonary nodule: Status: Acute (4) Aspiration pneumonia: Status: Acute Plan #PET positive right upper lobe spiculated nodule SUV 5.8 - patient underwent right upper lobe and middle lobe lobectomy on 08/20/2021 - Pathology pending -Extubated uneventfully post surgery -Today postop day 4: -Saturating 97% on 6 L oxygen pendant -Pulling up to 1000 cc on incentive spirometry. Clinically stable - Chest tube output reported at 140 cc serous fluid past 12 hours-removed by CT surgery- today -Toradol, morphine as needed Percocet as needed-for pain - CTA visit 2021 which ruled out pulmonary embolism but showed right lower lobe infiltrate suggestive of aspiration. Speech therapy consulted and reported mild risk of aspiration especially with liquids and so started patient on mechanical soft with nectar thick liquids; on Zosyn (day 2) for aspiration and send for sputum cultures - Chest x-ray No substantial interval change. Similar right lung airspace opacities with small right pleural effusion. No pneumothorax is discernible radiographically. -Good urine output-good urine output over last 24 hours net -1.8 L-we will DC Cross; electrolytes within normal limits -Prior to lobectomies-preoperative FEV1 of 2.47 which is 72% of predicted and DLCO 40% predicted.predicted postoperative FEV1 1.82 L and DLCO 29% mild improvement with bronchodilator.?Reported using 1 to 2 L previously on exertion and sometimes at nighttime. -Given his predicted postoperative DLCO 29%-he may require continuous oxygen supplementation; plan is to taper him down -Encourage incentive spirometry/physical therapy/pulmonary toileting and depending on his recovery next 24 to 48 hours-we will decide to discharge either to LTAC or outpatient with pulmonary rehabilitation pulmonary rehabilitation -We will repeat PFTs as outpatient # episodes of acute dyspnea and desaturation to low 70s while sleeping -Recommended CPAP 10 at night as he may have component of undiagnosed KUSH - needs sleep study post discharge -Other considerations for hypoxic episodes-May be exacerbation of undiagnosed ASD/PFO - CV echo 08/23/2021: LV appears normal size and ejection fraction. Otherwise technically difficult study and only subcostal views were obtained -Ordered CV echo with contrast to look for ASD/PFO #Stable large calcified PET negative left upper lobe lesion -This includes no evidence for kamaljit activity and there is no activity in the larger calcified left upper lobe lesion which has been followed for several years. #There is minimal FDG uptake in a 6 mm superior segment left lower lobe nodule - though this is too small to reliably characterize at this time.? This will need close follow-up.? #Evidence of emphysema on CT chest # reported smoking several packs a day for more than 50 years-recently down to less than 1 pack a day. -PFT 07/31/2021: The postbronchodilator spirometry is consistent with moderate airflow obstruction.? There is no significant postbronchodilator response.Lung volumes are normal. Gas exchange (DLCO) is moderately reduced -Continue DuoNeb every 6 hr PRN for shortness of breath and wheezing -Continue Trelegy 1 puff daily -Follow-up for COPD as outpatient in pulmonary clinic #A. fib with RVR -Received metoprolol IV pushes and currently on amiodarone drip-we will change to p.o. amiodarone today evening -Electrolytes within normal limits -on heparin drip monitor APTT and adjust accordingly Regular diet-mechanical soft with nectar liquids Full code DVT prophylaxis: already on heparin drip Updated patient and his at bedside They verbalized understanding and agreed with the plan. Recommendations conveyed to Dr. Mccartney/Dr. Hernandez RN, RT taking care of the patient Attestations Medical Necessity Statement*: - Postop day4-needs close monitoring in ICU for postop pneumonia, A. fib with RVR/hypoxia Time Spent in Patient Care: Greater than 35 minutes (>than 50% of time spent in counselling and/or direct pt care on unit) . Critical Care Time: The high probability of a clinically significant, sudden or life threatening deterioration of the patient's [pulmonary, cardiac system(s) required my full and direct attention, intervention and personal management. The critical care time is as shown. 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
[2021-08-24] MEDS: atorvastatin 40 mg Tablet 20 MG PO (10:35)
[2021-08-24] MEDS: fluoxetine 20 mg Capsule 40 MG PO (10:35)
[2021-08-24] MEDS: pantoprazole DR 40 mg Tablet PO (10:36)
[2021-08-24] MEDS: amiodarone 200 mg Tablet PO ×2 (10:38→17:01)
[2021-08-24] MEDS: heparin 5,000 unit/mL INJ 1 mL IV ×2 (10:40→23:25)
[2021-08-24 10:58] LABS: Iron 30 ug/dL (59-158); Percent Saturation 14.7 % (20-50); Total Iron Binding Capacity 204 mcg/dl; Unsaturated Iron Binding 174 ug/dL (112-347)
[2021-08-24 11:04] LABS: Procalcitonin 0.19 ng/mL (0-0.5)
[2021-08-24 11:31] LABS: Glucose Point of Care 102 mg/dL (70-110)
[2021-08-24] MEDS: alum-mag-hydroxide-sime 30 mL UDC PO (11:49)
[2021-08-24 12:06] LABS: Glucose Point of Care 95 mg/dL (70-110)
[2021-08-24] MEDS: morphine 4 mg/mL SDV 1 mL 1 MG IVP ×2 (14:22→16:20)
[2021-08-24] MEDS: ipratropium-albuterol 3 mL Neb INHALATION ×2 (14:58→20:17)
--- NOTE | 2021-08-24 15:20 | PM.PN ---
Subjective Subjective: Hospital course, labs appreciated. On examination lying comfortably in bed. at bedside. Currently on 5 L oxygen pendent which is equal to 10 L of regular nasal cannula saturating Above 90%. Overnight patient had episode of anxiety associated with shortness of breath and cough at that point patient was placed back on suction and given nebulization treatment. Overnight patient required 12 L of regular nasal cannula oxygen supplementation. Chest tubes removed as per Dr. Mccartney early in the morning today. Vitals/I&O/Wt Last Vital Signs Temp 98.4 F 08/24/21 12:00 Pulse 75 08/24/21 15:09 Resp 20 H 08/24/21 15:09 BP 97/59 08/24/21 15:00 Pulse Ox 94 08/24/21 15:09 08/24/21 08/24/21 08/24/21 06:59 14:59 22:59 Intake Total 1048 / 4559.334 1074.329 / 1074.329 Output Total 1110 / 5805 1185 / 1185 Balance -62 / -1245.666 -110.671 / -110.671 Weight last 48 hrs Weight 80.331 kg Weight 80.7 kg Weight 80.7 kg Weight 80.603 kg Physical Exam Narrative: General exam is a conversant male, anxious, in no distress. Currently on 5 L oxygen [place] ORIF. HEENT: Pupils equally round. Oropharynx clear. Neck is supple no lymphadenopathy or thyromegaly Cardiovascular regular rate and rhythm, without murmur Lungs diminished breath sounds bilaterally especially in right upper zone and left lower zone, but no wheezes or crackles. Chest tube noted. Abdomen is soft with positive bowel sounds. No obvious organomegaly exam is deferred Extremities no cyanosis clubbing or edema, cap refill brisk. Urinary Catheter Management: Cross: Cath Placed During This Visit: yes Reason for Continuing Indwelling Catheter: Accurate Measurement of Urinary Output in Critically Ill Patients Urinary Catheter Date of Insertion: 08/20/21 Urinary Catheter Time of Insertion: 14:15 Data : 08/24/21 08:48 08/24/21 08:48 A&P Assessment and plan (1) Atrial fibrillation with rapid ventricular response: Rate controlled currently. Back to sinus rhythm. Continue with amiodarone drip and stop as per protocol within 24 hours. Start on amiodarone 200 mg twice daily. Continue with heparin drip for anticoagulation for now. After chest tube was just removed for now we will continue the heparin drip and most likely transition to oral anticoagulation within next 24 to 48 hours. Status: Acute (2) Lung mass: He is postoperative day # 4, status post right upper and middle lobectomy. Some concerns with recovery secondary to confusion and hypoxia. No pulmonary embolism seen on CTA. Status: Acute (3) Pneumonia: CTA shows right lower lobe pneumonia. This could represent aspiration. Check urine Legionella, bacterial antigen. Check MRSA swab. For now continue with Zosyn. Speech evaluation. Continue with incentive spirometry and flutter valve. Status: Acute (4) Confusion: Most probably postop confusion. Secondary to multiple medications to calm him down. Resolved since discontinuation of medication. Continue to monitor. Frequent reorientation. Xanax 0.5 twice daily as needed. Discussed in detail with patient regarding breathing exercises. Status: Acute (5) Hyponatremia: Improving. Continue to monitor. Stop IV fluids as patient is tolerating oral diet well. Status: Acute (6) COPD (chronic obstructive pulmonary disease): Start patient on DuoNebs every 6 hour, budesonide twice daily. Pulmonary toilet is already been ordered Status: Acute Plan Other medical problems as listed in past medical history Check lipid panel, HbA1c, iron panel. Heparin drip will suffice for DVT prophylaxis Pepcid for PUD prophylaxis. Full code. Care discussed in detail with patient, patient's family at bedside. Care discussed with pulmonology. Thank you for this consultation Attestations Medical Necessity Statement*: As per primary team. Time Spent in Patient Care: Greater than 35 minutes Coding Level of Care Code Acute Production Support Manager for [facility] Fwd Diagnoses Lung mass R91.8 Pneumonia J18.9 Confusion R41.0 Hyponatremia E87.1 COPD (chronic obstructive pulmonary disease) J44.9 Atrial fibrillation with rapid ventricular response I48.91
[2021-08-24 15:34] LABS: Add Urine Microscopic? YES; Bilirubin Urine Neg (Negative); Blood Urine 3+ (Negative); Glucose Urine UA 1+ (Normal); Ketones Urine Negative (Negative); Leukocyte Esterase Urine Trace (Negative); Nitrate Urine Negative (Negative); Protein Urine Neg (Negative); Specific Gravity, Urine 1.005 (1.005-1.030); Urine Appearance Clear (CLEAR); Urine Color Yellow (Yellow); Urobilinogen Urine Norm (Negative); pH Urine 7 (5-7)
[2021-08-24 15:35] LABS: Add Urine Culture? Yes; Bacteria Urine TRACE /hpf; RBC Urine 25-40 /hpf (0-2); Squamous Epithelial Cell Urine 0-4 /hpf (0-5); WBC Urine 0-4 /hpf (0-5)
--- NOTE | 2021-08-24 16:27 | XRR_ITS ---
PROCEDURE INFORMATION: Exam: XR Chest Exam date and time: 08/24/2021 4:39 PM Age: 70 years old Clinical indication: Shortness of breath; Prior surgery; Additional info: Right side crackles post chest tube removal. TECHNIQUE: Imaging protocol: XR of the chest. Views: 1 view. COMPARISON: 1. CR (CHEST, ) 08/24/2021 7:[address] chest w con* [id number] 07/02/2021 9:17 AM FINDINGS: Lungs: Right base consolidation is stable. Chronic interstitial changes in both lungs. Emphysema. Stable large calcified granuloma in the left upper lobe. Pleural spaces: Small right pleural effusion. No pneumothorax. Heart/Mediastinum: Unremarkable. No cardiomegaly. Bones/joints: Unremarkable. XR/XR chest 1V portable [id number] IMPRESSION: 1. Stable pneumonia versus aspiration in the right lung base.
[2021-08-24 16:55] LABS: Partial Thromboplastin Time 63.4 SECONDS (23.9-36.7)
[2021-08-24] MEDS: ferrous gluconate 324 mg Tablet PO (17:01)
--- NOTE | 2021-08-24 19:23 | PC.NURSE ---
at approximately 1645, patient became short of breath, saturations in the high 70's and low 80's. 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 After about 10 minutes, patient was able to fully recover. Lung sounds on the right side now have crackles, and patient states he feels as though something is wrong. Can't specifically say, just that he feels that something isn't right. Nurse alerted Dr malik and lorin. received orders for an Xray and continued observation.
--- NOTE | 2021-08-24 19:23 | PC.NURSE ---
shift summary: anderson and chest tube removed this morning. Patient can ambulate distances of 10 feet or less but it is extremely exhausting. Multple times throughout the day the patient became anxious and desaturated. Patient was able to be coached through breathing techniques and occaisonally needed morphine during these episodes. Lung sounds started out as clear on the left and diminished on the right, but is now clear on the left and crackles on the right. Transitioned form IV amiodarone to po, continues to be on heparin.
[2021-08-24] MEDS: budesonide 0.5 mg/2 mL Neb INHALATION (20:16)
[2021-08-24 22:52] LABS: Partial Thromboplastin Time 53.4 SECONDS (23.9-36.7)
[2021-08-25] VITALS (35 sets, daily range): BP systolic 93–125; BP diastolic 52–77; PULSE 70–86; RESP 14–29; TEMP 36.7–37.3; O2SAT 88–95
[2021-08-25] MEDS: piperacillin-tazobactam 3.375 GM in sodium chloride 0.9% (plus) 50 ML IV ×3 (01:04→17:12)
[2021-08-25] MEDS: heparin drip 25,000 UNIT/500 ML PREMIX 29 UNIT IV (03:09)
[2021-08-25] MEDS: ipratropium-albuterol 3 mL Neb INHALATION ×4 (03:09→20:12)
[2021-08-25 05:59] LABS: Basophils % 0.2 %; Eosinophils # 0.2 10^3/uL (0.0-0.8); Eosinophils % 2.4 %; Hemoglobin 12.5 g/dL (11.7-16.6); Lymphocytes # 0.8 10^3/uL (0.8-4.8); Lymphocytes % 12.7 %; Mean Corpuscular HGB Conc 33.8 g/dL (30.0-36.0); Mean Corpuscular Hemoglobin 33.1 pg (28.0-34.0); Mean Corpuscular Volume 97.9 fl (80-94); Mean Platelet Volume 10.1 fL (7.4-10.4); Monocytes # 0.6 10^3/uL (0.2-0.9); Monocytes % 9.1 %; Neutrophils # 4.95 10^3/uL (1.8-7.7); Neutrophils % 74.8 %; Nucleated Red Blood Cells % 0 %; Platelet Count 165 10^3/cmm (130-400); Red Blood Count 3.78 10^6/uL (4.1-5.3); Red Cell Distribution Width 13.9 % (12.1-15.1); White Blood Count 6.6 10^3/uL (4.0-10.0)
--- NOTE | 2021-08-25 06:00 | XRR_ITS ---
PROCEDURE INFORMATION: Exam: XR Chest Exam date and time: 08/25/2021 7:10 AM Age: 70 years old Clinical indication: Condition or disease; Lung condition and disease; Pneumonia; Prior surgery; Surgery date: 3-7 days post-operative; Surgery type: Lobectomy; Additional info: Pod #5 status post lobectomy/postoperative pneumonia TECHNIQUE: Imaging protocol: XR of the chest. Views: 1 view. COMPARISON: CR (CHEST, ) 08/24/2021 4:39 PM FINDINGS: Lungs: Similar airspace opacities in the right lung. Similar densely calcified area at the left lung apex. Postoperative changes of right upper and middle lobectomies. Pleural spaces: Similar small right pleural effusion. No discernible pneumothorax. Heart/Mediastinum: Unremarkable. No cardiomegaly. Bones/joints: Unremarkable. XR/XR chest 1V portable [id number] IMPRESSION: No substantial interval change. Similar small right pleural effusion with patchy airspace opacities in the right lung.
[2021-08-25 06:20] LABS: Alanine Aminotransferase 32 U/L (0-41); Albumin Level 2.9 g/dL (3.5-5.2); Alkaline Phosphatase 73 IU/L (40-130); Anion Gap 14.7 (5-19); Aspartate Amino Transferase 38 U/L (0-40); Blood Urea Nitrogen 12 mg/dL (8-23); Calcium 8.5 mg/dL (8.5-10.5); Carbon Dioxide 23 mmol/L (22-29); Chloride 101 mmol/L (98-107); Chol HDL Ratio 2.85 mg/dL (1.0-5.00); Cholesterol 111 mg/dL (0-200); Globulin 2.3 g/dL (1.3-4.6); Glomerular Filtration Rate 111.5 mL/min (90-130); Glucose 108 mg/dL (65-115); HDL Cholesterol 39 mg/dL (60-100); LDL Cholesterol Calculated 58 mg/dL (50-129); Osmolality Calculated 280 mOsm/kg (285-295); Potassium 3.7 mmol/L (3.5-5.1); Sodium 135 mmol/L (136-145); Total Bilirubin 0.6 mg/dL (0.15-1.2); Total Protein 5.2 g/dL (6.6-8.7); Triglycerides 68 mg/dL (0-150); VLDL Cholestrol Calculation 14 mg/dL (0-30)
[2021-08-25 06:21] LABS: Partial Thromboplastin Time 102.7 SECONDS (23.9-36.7)
[2021-08-25 06:22] LABS: Estmated Average Glucose 97
[2021-08-25] MEDS: morphine 4 mg/mL SDV 1 mL 1 MG IVP ×3 (06:48→15:09)
--- NOTE | 2021-08-25 07:56 | P.PN_ITS ---
Subjective Subjective: Postop day #5 status post lobectomy. 1 episode of desaturation in the early afternoon for which with coaching he was able to recover without the need for additional oxygenation supplementation. No events reported overnight. He is sitting up in bed having breakfast this morning with O2 saturation of 91% on 6 L nasal cannula. He does feel consolidation on the right side and is bit uneasy. I get the impression that he may be getting somewhat depressed. Clinically, he has made slow but appears to be steady progress. His chest x-ray does show some improved aeration in the lower portion of the right lower lobe, which is an improvement. He currently is maintained on IV antibiotics. Amiod arone has been transitioned to p.o. He is currently on IV heparin. Laboratory data is been reviewed. White count is down to 6000. H&H is stable. Electrolytes are normal. Chest tube and Cross catheter have been discontinued. He has remained in sinus rhythm since conversion spontaneously. Vitals/I&O/Wt Last Vital Signs Temp 98.1 F 08/25/21 07:01 Pulse 75 08/25/21 07:01 Resp 17 08/25/21 07:01 BP 115/68 08/25/21 07:01 Pulse Ox 94 08/25/21 07:01 08/24/21 08/25/21 08/25/21 22:59 06:59 14:59 Intake Total 250 / 1374.329 606.883 / 1981.212 Output Total 500 / 1685 350 / 2035 Balance -250 / -310.671 256.883 / -53.788 Weight last 48 hrs Weight 169 lb 1.6 oz Weight 177 lb 1.6 oz Weight 177 lb 14.609 oz Weight 177 lb 14.609 oz Weight 177 lb 11.2 oz Physical Exam Resp: OTHER: As expected decreased breath sounds on the right though there is some mild crack les or rhonchi which I surmise is actually showing some improved aeration to the lower portion of the right lower lobe. Chest x-ray revealed some mediastinal shift has not worsened. There is no further hyperinflation of the left lung. Urinary Catheter Management: Cross: Cath Placed During This Visit: yes Reason for Continuing Indwelling Catheter: Accurate Measurement of Urinary Output in Critically Ill Patients Urinary Catheter Date of Insertion: 08/20/21 Urinary Catheter Time of Insertion: 14:15 Data : 08/25/21 05:40 08/25/21 05:40 Micro: Microbiology 08/24/21 14:45 Legionella Urinary Antigen - Final Urine,Clean Catch A&P Assessment and plan (1) Status post lobectomy of lung: Postop day #6. Continuing pulmonary toilet. Greatly appreciate expertise and oversight of Dr. Padilla and our hospitalist co ben. Though challenging, he has made some progress. I am concerned that he may be getting a bit depressed and will defer to my medical colleagues as to whether this requires additional treatment. 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
[2021-08-25] MEDS: ferrous gluconate 324 mg Tablet PO ×2 (07:59→17:12)
[2021-08-25] MEDS: pantoprazole DR 40 mg Tablet PO (07:59)
[2021-08-25] MEDS: amiodarone 200 mg Tablet PO ×2 (07:59→17:12)
[2021-08-25] MEDS: atorvastatin 40 mg Tablet 20 MG PO (07:59)
[2021-08-25] MEDS: fluoxetine 20 mg Capsule 40 MG PO (07:59)
[2021-08-25] MEDS: budesonide 0.5 mg/2 mL Neb INHALATION ×2 (09:08→20:11)
--- NOTE | 2021-08-25 09:15 | PC.SOCIAL ---
IMM update IMM updated with patient and at bedside. Verbalized an understanding. Copy Pg 2 provided. Initialled, dated, timed, and placed in chart.
[2021-08-25] MEDS: magnesium hydroxide 30 mL UDC 45 ML PO (09:44)
--- NOTE | 2021-08-25 11:13 | PM.PN ---
Subjective Subjective: No acute events overnight. Patient on examination lying comfortably in bed. Down to 4 to 5 L of nasal cannula oxygen supplementation. Denies any nausea, vomiting, headache. Had 1 episode of anxiety yesterday when he desaturated. Working better with lung exercises and technique of breathing coaching. Patient on examination appears depressed. He states he is not depressed. He just thinks that he probably should not have gone ahead with the surgery and probably would have not continue recovery will be so difficult. We discussed in detail and he was counseled that it is going to be slow patient road going forward and he should be back to a good stable breath baseline within next 4 to 5 months. Medications: Reviewed: Yes Vitals/I&O/Wt Last Vital Signs Temp 98.1 F 08/25/21 07:01 Pulse 84 08/25/21 10:00 Resp 26 H 08/25/21 10:00 BP 107/72 08/25/21 10:00 Pulse Ox 89 L 08/25/21 10:00 08/24/21 08/25/21 08/25/21 22:59 06:59 14:59 Intake Total 250 / 1374.329 606.883 / 1981.212 200 / 200 Output Total 500 / 1685 350 / 2035 650 / 650 Balance -250 / -310.671 256.883 / -53.788 -450 / -450 Weight last 48 hrs Weight 76.702 kg Weight 80.331 kg Weight 80.7 kg Weight 80.7 kg Weight 80.603 kg Physical Exam Narrative: General exam is a conversant male, anxious, in no distress. Currently on 5 L oxygen nasal cannula. HEENT: Pupils equally round. Oropharynx clear. Neck is supple no lymphadenopathy or thyromegaly Cardiovascular regular rate and rhythm, without murmur Lungs diminished breath sounds bilaterally especially in right upper zone and left lower zone, but no wheezes or crackles. Chest tube noted. Abdomen is soft with positive bowel sounds. No obvious organomegaly exam is deferred Extremities no cyanosis clubbing or edema, cap refill brisk. Urinary Catheter Management: Cross: Cath Placed During This Visit: yes Reason for Continuing Indwelling Catheter: Accurate Measurement of Urinary Output in Critically Ill Patients Urinary Catheter Date of Insertion: 08/20/21 Urinary Catheter Time of Insertion: 14:15 Data : 08/25/21 05:40 08/25/21 05:40 Micro: Microbiology 08/24/21 12:46 MRSA Culture - Final Nose 08/24/21 14:45 Legionella Urinary Antigen - Final Urine,Clean Catch A&P Assessment and plan (1) Atrial fibrillation with rapid ventricular response: Rate controlled currently. Back to sinus rhythm. Amiodarone drip stopped. Continue with oral amiodarone 200 mg twice daily. We will plan for 7 days of amiodarone 200 mg twice daily followed by 200 mg daily. Continue with heparin drip for anticoagulation for now. After chest tube was just removed for now we will continue the heparin drip and most likely transition to oral anticoagulation within next 24 to 48 hours. Status: Acute (2) Lung mass: He is postoperative day # 5, status post right upper and middle lobectomy. Some concerns with recovery secondary to confusion and hypoxia. No pulmonary embolism seen on CTA. Status: Acute (3) Pneumonia: CTA shows right lower lobe pneumonia. This could represent aspiration. Check urine Legionella, bacterial antigen. Check MRSA swab. For now continue with Zosyn. Speech evaluation. Continue with incentive spirometry and flutter valve. Status: Acute (4) Confusion: Most probably postop confusion. Secondary to multiple medications to calm him down. Resolved since discontinuation of medication. Continue to monitor. Frequent reorientation. Xanax 0.5 twice daily as needed. Discussed in detail with patient regarding breathing exercises. Status: Acute (5) Hyponatremia: Improving. Continue to monitor. Stop IV fluids as patient is tolerating oral diet well. Status: Acute (6) COPD (chronic obstructive pulmonary disease): Start patient on DuoNebs every 6 hour, budesonide twice daily. Pulmonary toilet is already been ordered Status: Acute Plan Other medical problems as listed in past medical history Check lipid panel, HbA1c, iron panel. Heparin drip will suffice for DVT prophylaxis Pepcid for PUD prophylaxis. Full code. Care discussed in detail with patient, patient's family at bedside. Care discussed with pulmonology. Thank you for this consultation Plan for day: Continue with amiodarone oral. Out of bed to chair. Wean down oxygen supplementation keeping saturation over 90%. Continue with breathing coaching. Continue with incentive spirometry and flutter valve and aggressive chest therapy. Plan to switch from IV heparin to oral anticoagulation within next 24 hours and from IV Zosyn to oral antibiotics most likely Augmentin and Levaquin within next 24 hours. Attestations Medical Necessity Statement*: As per primary team. Time Spent in Patient Care: Greater than 35 minutes Coding Level of Care Code Acute Cloth Grader Supervisor for Mookg Fwd Diagnoses Atrial fibrillation with rapid ventricular response I48.91 Lung mass R91.8 Pneumonia J18.9 Confusion R41.0 Hyponatremia E87.1 COPD (chronic obstructive pulmonary disease) J44.9
[2021-08-25 13:14] LABS: Partial Thromboplastin Time 71.6 SECONDS (23.9-36.7)
[2021-08-25] MEDS: oxyCODONE-APAP 5-325 mg Tablet 1 TAB PO (17:15)
[2021-08-25 19:16] LABS: Partial Thromboplastin Time 78.3 SECONDS (23.9-36.7)
[2021-08-25] MEDS: ketorolac 30 mg/mL INJ IVP (19:57)
[2021-08-25] MEDS: heparin drip 25,000 UNIT/500 ML PREMIX 22 UNIT IV (23:43)
[2021-08-26] VITALS (31 sets, daily range): BP systolic 100–126; BP diastolic 61–91; PULSE 63–82; RESP 16–31; TEMP 36.7–36.9; O2SAT 88–96
[2021-08-26] MEDS: piperacillin-tazobactam 3.375 GM in sodium chloride 0.9% (plus) 50 ML IV ×3 (01:22→17:15)
[2021-08-26 01:46] LABS: Basophils % 0.3 %; Eosinophils # 0.3 10^3/uL (0.0-0.8); Eosinophils % 5.3 %; Hematocrit 36.2 % (42.0-52.0); Hemoglobin 12.3 g/dL (11.7-16.6); Lymphocytes # 1.2 10^3/uL (0.8-4.8); Lymphocytes % 19.6 %; Mean Corpuscular Volume 97.1 fl (80-94); Mean Platelet Volume 9.9 fL (7.4-10.4); Monocytes # 0.7 10^3/uL (0.2-0.9); Monocytes % 12.2 %; Neutrophils # 3.75 10^3/uL (1.8-7.7); Neutrophils % 61.6 %; Nucleated Red Blood Cells % 0 %; Platelet Count 170 10^3/cmm (130-400); Red Blood Count 3.73 10^6/uL (4.1-5.3); Red Cell Distribution Width 13.9 % (12.1-15.1); White Blood Count 6.1 10^3/uL (4.0-10.0)
[2021-08-26 02:11] LABS: Alanine Aminotransferase 41 U/L (0-41); Albumin Level 2.9 g/dL (3.5-5.2); Alkaline Phosphatase 82 IU/L (40-130); Anion Gap 13.9 (5-19); Aspartate Amino Transferase 44 U/L (0-40); Blood Urea Nitrogen 15 mg/dL (8-23); Calcium 8.5 mg/dL (8.5-10.5); Carbon Dioxide 25 mmol/L (22-29); Chloride 102 mmol/L (98-107); Globulin 2.4 g/dL (1.3-4.6); Glomerular Filtration Rate 111.5 mL/min (90-130); Glucose 105 mg/dL (65-115); Osmolality Calculated 285 mOsm/kg (285-295); Potassium 3.9 mmol/L (3.5-5.1); Sodium 137 mmol/L (136-145); Total Bilirubin 0.5 mg/dL (0.15-1.2); Total Protein 5.3 g/dL (6.6-8.7)
[2021-08-26 02:13] LABS: Partial Thromboplastin Time 74.8 SECONDS (23.9-36.7)
[2021-08-26] MEDS: ipratropium-albuterol 3 mL Neb INHALATION ×4 (02:53→20:13)
--- NOTE | 2021-08-26 07:04 | P.PN_ITS ---
Subjective Subjective: Postop day #6. Mr. Ibarra stated he slept almost 9 hours last night. This was confirmed by nursing service. There were no acute episodes of desaturation last night. He appears comfortable this morning and his spirits appear to be improved as well. He did walk twice yesterday for about 80 feet with 1 brief episode of desaturations which he recovered quickly. Laboratory data has been reviewed. White count remains normal. H&H is stable. I do not see the chest x-ray from this morning. He remains in sinus rhythm on oral amiodarone. He did report 2 BMs yesterday. Vitals/I&O/Wt Last Vital Signs Temp 98.4 F 08/26/21 04:00 Pulse 70 08/26/21 05:54 Resp 18 08/26/21 04:00 BP 118/69 08/26/21 04:00 Pulse Ox 91 08/26/21 04:00 08/25/21 08/26/21 08/26/21 22:59 06:59 14:59 Intake Total 838.8 / 1328.8 136.8 / 1465.6 Output Total 775 / 1575 475 / 2050 Balance 63.8 / -246.2 -338.2 / -584.4 Weight last 48 hrs Weight 169 lb 11.2 oz Weight 169 lb 1.6 oz Physical Exam Chest: OTHER: Chest wall is stable. Incision is clean, dry, and intact. Resp: OTHER: Continued rhonchi on the right though this may be further openings of bronchial airways. Chest x-ray is pending. Urinary Catheter Management: Cross: Cath Placed During This Visit: yes Reason for Continuing Indwelling Catheter: Accurate Measurement of Urinary Output in Critically Ill Patients Urinary Catheter Date of Insertion: 08/20/21 Urinary Catheter Time of Insertion: 14:15 Data : 08/26/21 01:40 08/26/21 01:40 Micro: Microbiology 08/24/21 14:45 Urine Culture - Preliminary Urine,Clean Catch 08/24/21 14:45 Bacterial Antigens - Final Urine Kidney 08/24/21 12:46 MRSA Culture - Final Nose A&P Assessment and plan (1) Status post lobectomy of lung: Postop day #6. Continue pulmonary toilet and increase in activities. Mr. Ibarra appears to be making progress. Dressings changed today. Continue advancement of activities as tolerated. Greatly appreciate oversight expertise several hospitalist and pulmonary colleagues. Status: Acute Attestations Medical Necessity Statement*: POD #6 status post lobectomy Coding Level of Care Code Acute Stabilizer Operator for Chg Fwd Diagnoses Status post lobectomy of lung Z90.2
[2021-08-26] MEDS: fluoxetine 20 mg Capsule 40 MG PO (08:15)
[2021-08-26] MEDS: atorvastatin 40 mg Tablet 20 MG PO (08:15)
[2021-08-26] MEDS: ferrous gluconate 324 mg Tablet PO ×2 (08:15→17:15)
[2021-08-26] MEDS: pantoprazole DR 40 mg Tablet PO (08:15)
[2021-08-26] MEDS: amiodarone 200 mg Tablet PO ×2 (08:15→17:15)
[2021-08-26] MEDS: budesonide 0.5 mg/2 mL Neb INHALATION ×2 (08:24→20:13)
[2021-08-26 08:25] LABS: Partial Thromboplastin Time 61.4 SECONDS (23.9-36.7)
--- NOTE | 2021-08-26 08:40 | PM.PN ---
Subjective Subjective: Postop day #6. -Patient seen at bedside sitting out of bed to chair -Clinically stable, appeared comfortable in no acute distress, still requiring 5 L nasal cannula -Patient denied any complaints and felt good after walking 2 rounds yesterday, desaturated transiently to 87% while walking and improved right away -H2 bowel movements -Overall feels good -Labs and imaging reviewed Medications: Reviewed: Yes Vitals/I&O/Wt Last Vital Signs Temp 98.4 F 08/26/21 04:00 Pulse 82 08/26/21 08:34 Resp 16 08/26/21 08:34 BP 126/73 08/26/21 07:00 Pulse Ox 92 08/26/21 08:34 08/25/21 08/26/21 08/26/21 22:59 06:59 14:59 Intake Total 838.8 / 1328.8 136.8 / 1465.6 240 / 240 Output Total 775 / 1575 475 / 2050 350 / 350 Balance 63.8 / -246.2 -338.2 / -584.4 -110 / -110 Weight last 48 hrs Weight 169 lb 11.2 oz Weight 169 lb 1.6 oz Physical Exam Narrative: General: alert, NAD HEENT: conj clear, EOMI, PERRL, mmm, Neck: supple, no meningismus Heme: no cervical LAP Pulmonary: Reduced breath sounds on right, CTAB, no wheezing, rhonchi, crackles Cardiovascular: rrr, nl s1s2, no mrg Abdomen: soft, nt, nd, no r/g, bs+ Extremities: pulses +, no edema, no c/c : no CVA tenderness Skin: intact, no rash MSK: no back or neck pain Neurologic: grossly intact Urinary Catheter Management: Cross: Cath Placed During This Visit: yes Reason for Continuing Indwelling Catheter: Accurate Measurement of Urinary Output in Critically Ill Patients Urinary Catheter Date of Insertion: 08/20/21 Urinary Catheter Time of Insertion: 14:15 Data : 08/26/21 01:40 08/26/21 01:40 Other Labs: Radiology Impressions Chest CTA 08/23/21 03:46 IMPRESSION: 1. No pulmonary emboli identified. 2. Postsurgical changes of right upper and middle lobectomies. There is a small right hydropneumothorax. 3. There is evidence of aspiration or pneumonia in the right lower lobe and lingula. Chest X-Ray 08/25/21 06:00 IMPRESSION: No substantial interval change. Similar small right pleural effusion with patchy airspace opacities in the right lung. Laboratory Results WBC 6.1 10^3/uL (4.0-10.0) 08/26/21 01:40 RBC 3.73 10^6/uL (4.1-5.3) L 08/26/21 01:40 Hgb 12.3 g/dL (11.7-16.6) 08/26/21 01:40 Hct 36.2 % (42.0-52.0) L 08/26/21 01:40 MCV 97.1 fl (80-94) H 08/26/21 01:40 MCH 33.0 pg (28.0-34.0) 08/26/21 01:40 MCHC 34.0 g/dL (30.0-36.0) 08/26/21 01:40 RDW 13.9 % (12.1-15.1) 08/26/21 01:40 Plt Count 170 10^3/cmm (130-400) 08/26/21 01:40 MPV 9.9 fL (7.4-10.4) 08/26/21 01:40 Neut % (Auto) 61.6 % 08/26/21 01:40 Lymph % (Auto) 19.6 % 08/26/21 01:40 Hamilton % (Auto) 12.2 % 08/26/21 01:40 Eos % (Auto) 5.3 % 08/26/21 01:40 Baso % (Auto) 0.3 % 08/26/21 01:40 Neut # (Auto) 3.75 10^3/uL (1.8-7.7) 08/26/21 01:40 Lymph # (Auto) 1.2 10^3/uL (0.8-4.8) 08/26/21 01:40 Hamilton # (Auto) 0.7 10^3/uL (0.2-0.9) 08/26/21 01:40 Eos # (Auto) 0.3 10^3/uL (0.0-0.8) 08/26/21 01:40 Baso # (Auto) 0.0 10^3/uL (0.0-0.1) 08/26/21 01:40 Nucleated RBC % (auto) 0 % 08/26/21 01:40 Nucleated RBCs # 0.0 /100WBC 08/26/21 01:40 PT 13.10 SECONDS (12.1-14.9) 08/14/21 13:41 INR 0.96 (0.8-1.2) 08/14/21 13:41 APTT 61.4 SECONDS (23.9-36.7) H 08/26/21 07:38 D-Dimer 1.47 ug/mIFEU (0-0.59) H 08/23/21 08:33 Sodium 137 mmol/L (136-145) 08/26/21 01:40 Potassium 3.9 mmol/L (3.5-5.1) 08/26/21 01:40 Chloride 102 mmol/L (98-107) 08/26/21 01:40 Carbon Dioxide 25 mmol/L (22-29) 08/26/21 01:40 Anion Gap 13.9 (5-19) 08/26/21 01:40 BUN 15 mg/dL (8-23) 08/26/21 01:40 Creatinine 0.7 mg/dL (0.7-1.2) 08/26/21 01:40 GFR Calculation 111.5 mL/min (90-130) 08/26/21 01:40 Glucose 105 mg/dL (65-115) 08/26/21 01:40 POC Glucose 95 mg/dL (70-110) 08/24/21 12:01 Estimat Average Glucose 97 08/25/21 05:40 Hemoglobin A1c 5.0 % (4.0-6.0) 08/25/21 05:40 Calculated Osmolality 285 mOsm/kg (285-295) 08/26/21 01:40 Calcium 8.5 mg/dL (8.5-10.5) 08/26/21 01:40 Magnesium 2.3 mg/dL (1.7-2.3) 08/23/21 04:09 Iron 30 ug/dL (59-158) L 08/24/21 08:48 TIBC 204 mcg/dl 08/24/21 08:48 % Saturation 14.7 % (20-50) L 08/24/21 08:48 Unsat Iron Binding 174 ug/dL (112-347) 08/24/21 08:48 Total Bilirubin 0.5 mg/dL (0.15-1.2) 08/26/21 01:40 AST 44 U/L (0-40) H 08/26/21 01:40 ALT 41 U/L (0-41) 08/26/21 01:40 Alkaline Phosphatase 82 IU/L (40-130) 08/26/21 01:40 Total Protein 5.3 g/dL (6.6-8.7) L 08/26/21 01:40 Albumin 2.9 g/dL (3.5-5.2) L 08/26/21 01:40 Globulin 2.4 g/dL (1.3-4.6) 08/26/21 01:40 Triglycerides 68 mg/dL (0-150) 08/25/21 05:40 Cholesterol 111 mg/dL (0-200) 08/25/21 05:40 LDL Cholesterol, Calc 58 mg/dL (50-129) 08/25/21 05:40 Total VLDL Cholesterol 14 mg/dL (0-30) 08/25/21 05:40 HDL Cholesterol 39 mg/dL (60-100) L 08/25/21 05:40 Cholesterol/HDL Ratio 2.85 mg/dL (1.0-5.00) 08/25/21 05:40 Procalcitonin 0.19 ng/mL (0-0.5) 08/24/21 08:48 TSH 1.34 uIU/mL (0.27-4.20) 08/23/21 04:09 Urine Color Yellow (Yellow) 08/24/21 14:45 Urine Appearance Clear (CLEAR) 08/24/21 14:45 Urine pH 7 (5-7) 08/24/21 14:45 Ur Specific Baxter 1.005 (1.005-1.030) 08/24/21 14:45 Urine Protein Neg (Negative) 08/24/21 14:45 Urine Glucose (UA) 1+ (Normal) H 08/24/21 14:45 Urine Ketones Negative (Negative) 08/24/21 14:45 Urine Blood 3+ (Negative) H 08/24/21 14:45 Urine Nitrate Negative (Negative) 08/24/21 14:45 Urine Bilirubin Neg (Negative) 08/24/21 14:45 Urine Urobilinogen Norm mg/dL (Negative) 08/24/21 14:45 Ur Leukocyte Esterase Trace (Negative) H 08/24/21 14:45 Urine RBC 25-40 /hpf (0-2) H 08/24/21 14:45 Urine WBC 0-4 /hpf (0-5) H 08/24/21 14:45 Ur Squamous Epith Cells 0-4 /hpf (0-5) H 08/24/21 14:45 Amorphous Sediment Not Reportable 08/24/21 14:45 Urine Bacteria Trace /hpf (NONE) 08/24/21 14:45 Blood Type O Positive 08/14/21 13:41 Rho(D) Type Positive 08/14/21 13:41 Antibody Screen Negative 08/14/21 13:41 Crossmatch See Detail 08/14/21 13:41 Micro: Microbiology 08/24/21 14:45 Urine Culture - Final Urine,Clean Catch 08/24/21 14:45 Bacterial Antigens - Final Urine Kidney 08/24/21 12:46 MRSA Culture - Final Nose A&P Assessment and plan (1) Status post lobectomy of lung: Status: Acute (2) COPD (chronic obstructive pulmonary disease): Status: Acute (3) Right upper lobe pulmonary nodule: Status: Acute (4) Aspiration pneumonia: Status: Acute Plan #PET positive right upper lobe spiculated nodule SUV 5.8 - patient underwent right upper lobe and middle lobe lobectomy on 08/20/2021 - Pathology pending -Extubated uneventfully post surgery -Today postop day 6: -Saturating 92% on 5 L nasal cannula -Pulling up to 1000 cc on incentive spirometry. Clinically stable - Toradol, morphine as needed Percocet as needed-for pain - CTA visit 2021 which ruled out pulmonary embolism but showed right lower lobe infiltrate suggestive of aspiration. Speech therapy consulted and reported mild risk of aspiration especially with liquids and so started patient on mechanical soft with nectar thick liquids; on Zosyn (day 4) for aspiration - Chest x-ray No substantial interval change. Similar right lung airspace opacities with small right pleural effusion. No pneumothorax is discernible radiographically. -Good urine output & electrolytes within normal limits -Prior to lobectomies-preoperative FEV1 of 2.47 which is 72% of predicted and DLCO 40% predicted.predicted postoperative FEV1 1.82 L and DLCO 29% mild improvement with bronchodilator.?Reported using 1 to 2 L previously on exertion and sometimes at nighttime. -Given his predicted postoperative DLCO 29%-he may require continuous oxygen supplementation; plan is to taper him down -Encourage incentive spirometry/physical therapy/pulmonary toileting -please make arrangements for outpatient pulmonary rehabilitation -We will repeat PFTs as outpatient # episodes of acute dyspnea and desaturation to low 70s while sleeping -Recommended CPAP 10 at night as he may have component of undiagnosed KUSH - needs sleep study post discharge -Other considerations for hypoxic episodes-May be exacerbation of undiagnosed ASD/PFO - CV echo 08/23/2021: LV appears normal size and ejection fraction. Otherwise technically difficult study and only subcostal views were obtained -Ordered CV echo with contrast to look for ASD/PFO #Stable large calcified PET negative left upper lobe lesion -This includes no evidence for kamaljit activity and there is no activity in the larger calcified left upper lobe lesion which has been followed for several years. #There is minimal FDG uptake in a 6 mm superior segment left lower lobe nodule - though this is too small to reliably characterize at this time.? This will need close follow-up.? #Evidence of emphysema on CT chest # reported smoking several packs a day for more than 50 years-recently down to less than 1 pack a day. -PFT 07/31/2021: The postbronchodilator spirometry is consistent with moderate airflow obstruction.? There is no significant postbronchodilator response.Lung volumes are normal. Gas exchange (DLCO) is moderately reduced -Continue DuoNeb every 6 hr for shortness of breath and wheezing -Continue Trelegy 1 puff daily as outpatient -Follow-up for COPD as outpatient in pulmonary clinic #A. fib-rate controlled with amiodarone - Electrolytes within normal limits -I will DC heparin drip and and switch to oral Eliquis 5 mg twice daily Regular diet-mechanical soft with nectar liquids Full code DVT prophylaxis: already on heparin drip-we will switch to Eliquis Updated patient and his at bedside They verbalized understanding and agreed with the plan. Recommendations conveyed to Dr. Mccartney, RN, RT taking care of the patient Attestations Medical Necessity Statement*: - Postop day 6-improving Time Spent in Patient Care: Greater than 35 minutes (>than 50% of time spent in counselling and/or direct pt care on unit). Critical Care Time: The high probability of a clinically significant, sudden or life threatening deterioration of the patient's [pulmonary, cardiac system(s) required my full and direct attention, intervention and personal management. The critical care time is as shown. This time is in addition to time spent performing any reported procedures but includes the following: [x] Data and vital sign review and interpretation [x] Patient assessment, examination and intervention [x] Documentation [x] Medication orders and management Critical Care Time (min): 45 Coding Level of Care Code Established Pt Acute Senior Hardware Design Engineer for Chg Fwd Patient Type Established History Comprehensive Exam Comprehensive Medical Decision Making High Complexity Diagnoses Status post lobectomy of lung Z90.2 COPD (chronic obstructive pulmonary disease) J44.9 Right upper lobe pulmonary nodule R91.1 Aspiration pneumonia J69.0 Time Spent (min) 45
[2021-08-26] MEDS: apixaban 5 mg Tablet PO ×2 (09:39→20:30)
--- NOTE | 2021-08-26 10:14 | PC.NURSE ---
Heparin gtt stopped per MD orders. Eliquis started. Pt ambulated with nursing staff approximately 132'. Tolerated well. O2@5LNC in use.
--- NOTE | 2021-08-26 10:37 | PC.CHAP ---
Pastoral Care Encounter/Spiritual Assessment Type of Contact [] Declined [employer] consultant visit [] Patient/Family/Request visit [] Outpatient visit [] Follow-up visit [] Physician referral [] Code/Alert [x] Routine visit [] Staff referral [] Actively dying [] Patient sleeping [] Family support [] [] Out of room [] Palliative care [] [x] Receiving care in room [] Pre-surgical visit [] Trauma [] Long length of stay [x] ICU visit [x] Other: using breathing treatment Relational/Emotional Strength [] Patient feels connected with others/family/visitors/staff [] Distress [] Loneliness/isolation [] Abandonment Spirituality of Patient [] Person of Sylvia [] Attends Taoism of their Sylvia [] Believes in Prayer [] Reads Bible or Yazdanism materials [] There are Spiritual issues to be addressed Medical Chief Technician Interventions [x] Prayer [x] Active listening [x] Non-anxious presence [x] Spiritual/emotional support [] Crisis/trauma care [] Spiritual counseling [] Bereavement support [] Provided bereavement packet [] Provided Bible/devotional materials [] Provided toy/stuffed animal, coloring book to patient or family member [] Provided Communion [] Anointing/[place] [] Salvation [x] Completed spiritual assessment [] Other: Impact on Illness or Injury [] Angry [] Fearful [] Anxious [] Often cries [] Exhaustion [] Unable to work [] Unable to attend jain [] Unable to walk/stand [] Unable to read [] Unable to drive [] Unable to eat/drink [] Unable to sleep [] Unable to be with family [] Patient intubated [] Other: Summary Time spent with patient
[2021-08-26] MEDS: oxyCODONE-APAP 5-325 mg Tablet 1 TAB PO ×2 (11:35→18:59)
--- NOTE | 2021-08-26 14:54 | P.PN_ITS ---
Subjective Subjective: Patient was seen and examined this morning, was complaining of scant blood tinged sputum, no other complaints was seen sitting comfortably in chair. Medications: Reviewed: Yes Medication Review Details: Generic Name Dose Route Start Last Admin Trade Name Freq PRN Reason Stop Dose Admin Al Hydrox/Mg [place] x/Simethicone 30 ml 08/20/21 19:48 08/24/21 11:49 Trsa-Pth-Bytwaht de-Pati 30 Ml Udc PO 30 ml Q4H PRN Administration INDIGESTION Albuterol/Ipratrop ium 3 ml 08/22/21 16:33 08/23/21 07:38 Ipratropium-Albu terol 3 Ml Neb INHALATION 3 ml Q6H PRN Administration SHORTNESS OF JUN TH Albuterol/Ipratrop ium 3 ml 08/24/21 15:00 08/26/21 14:23 Ipratropium-Albu terol 3 Ml Neb INHALATION 3 ml Q6H.RESPIRATORY S CH Administration Amiodarone HCl 200 mg 08/24/21 09:45 08/26/21 08:15 Amiodarone 200 M g Tablet PO 200 mg BID ALISIA Administration Apixaban 5 mg 08/26/21 09:00 08/26/21 09:39 Apixaban 5 Mg Ta blet PO 5 mg BID@0900,2100 ALISIA Administration Atorvastatin Calci um 20 mg 08/21/21 09:00 08/26/21 08:15 Atorvastatin 40 Mg Tablet PO 20 mg DAILY ALISIA Administration Budesonide 0.5 mg 08/24/21 18:00 08/26/21 08:24 Budesonide 0.5 M g/2 Ml Neb INHALATION 0.5 mg BID ALISIA Administration Docusate Sodium 100 mg 08/20/21 19:48 08/23/21 19:19 Docusate Sodium 100 Mg Capsule PO 100 mg BID PRN Administration Constipation (Use 1st) Ferrous Gluconate 324 mg 08/24/21 18:00 08/26/21 08:15 Ferrous Gluconat e 324 Mg Tablet PO 324 mg BIDWM ALISIA Administration Fluoxetine HCl 40 mg 08/21/21 09:00 08/26/21 08:15 Fluoxetine 20 Mg Capsule PO 40 mg DAILY ALISIA Administration Piperacillin Sod/T azobactam 50 mls @ 12.5 mls /hr 08/23/21 09:30 08/26/21 13:55 Sod 3.375 gm/ So dium Chloride IV Infused Q8H ALISIA Infusion Protocol Ketorolac Trometha mine 30 mg 08/21/21 20:52 08/25/21 19:57 Ketorolac 30 Mg/ Ml Inj IVP 08/26/21 20:51 30 mg Q6H PRN Administration MODERATE PAIN Magnesium Hydroxid e 45 ml 08/20/21 19:48 08/25/21 09:44 Magnesium Hydrox tiki 30 Ml Udc PO 45 ml DAILY PRN Administration Constipation (use 4th) Morphine Sulfate 1 mg 08/24/21 10:09 08/25/21 15:09 Morphine 4 Mg/Ml Sdv 1 Ml IVP 1 mg Q2H PRN Administration SEVERE PAIN Ondansetron HCl 4 mg 08/20/21 19:48 08/20/21 20:49 Ondansetron 2 Mg /Ml Sdv 2 Ml IVP 4 mg Q6H PRN Administration NAUSEA AND VOMITI NG Oxycodone/Acetamin ophen 1 tab 08/20/21 19:48 08/26/21 11:35 Oxycodone-Apap 5 -325 Mg Tablet PO 1 tab Q4H PRN Administration MODERATE PAIN Pantoprazole Sodiu m 40 mg 08/21/21 09:00 08/26/21 08:[address] 40 Mg Tablet PO 40 mg DAILY ALISIA Administration Vitals/I&O/Wt Last Vital Signs Temp 98.4 F 08/26/21 04:00 Pulse 68 08/26/21 14:31 Resp 16 08/26/21 14:31 BP 120/61 08/26/21 13:00 Pulse Ox 92 08/26/21 14:31 08/25/21 08/26/21 08/26/21 22:59 06:59 14:59 Intake Total 838.8 / 1328.8 136.8 / 1465.6 843.233 / 843.233 Output Total 775 / 1575 475 / 2050 500 / 500 Balance 63.8 / -246.2 -338.2 / -584.4 343.233 / 343.233 Weight last 48 hrs Weight 76.975 kg Weight 76.702 kg Physical Exam Const: COMMON NORMALS: patient oriented x3 HENMT: COMMON NORMALS: normocephalic and atraumatic HEAD & SCALP: normocephalic and atraumatic Chest: CHEST: Yes Symmetrical chest wall rise Resp: COMMON NORMALS: normal respiratory effort and No retractions EFFORT & INSPECTION: Yes symmetric chest movement Cardio: COMMON NORMALS: regular rate, regular rhythm, S1 normal heart sound present, S2 normal heart sound present, No gallops present (Cardio), No murmurs present (Cardio), No rub (Cardio) and Peripheral pulses 2+ throughout RATE: regular rate RHYTHM: regular rhythm HEART SOUNDS: S1 normal heart sound present and S2 normal heart sound present PERIPHERAL PULSES: Peripheral pulses 2+ throughout GI: COMMON NORMALS: Normal to inspection, nondistended, normoactive bowel sounds present, Soft to palpation, non-tender, No hepatosplenomegaly present and no masses AUSCULTATION: Yes normoactive bowel sounds PALPATION: Yes Soft to palpation and Yes No hepatosplenomegaly present RECTAL EXAM: Yes deferred Extremity: COMMON NORMALS: no clubbing, cyanosis or edema and no pedal edema Neuro: COMMON NORMALS: patient oriented x3 Urinary Catheter Management: Cross: Cath Placed During This Visit: yes Reason for Continuing Indwelling Catheter: Accurate Measurement of Urinary O utput in Critically Ill Patients Urinary Catheter Date of Insertion: 08/20/21 Urinary Catheter Time of Insertion: 14:15 Data : 08/26/21 01:40 08/26/21 01:40 Micro: Microbiology 08/24/21 14:45 Urine Culture - Final Urine,Clean Catch 08/24/21 14:45 Bacterial Antigens - Final Urine Kidney A&P Assessment and plan (1) Atrial fibrillation with rapid ventricular response: Rate controlled currently. Back to sinus rhythm. Amiodarone drip stopped. Continue with oral amiodarone 200 mg twice daily. We will plan for 7 days of amiodarone 200 mg twice daily followed by 200 mg daily. Patient was on a heparin drip has been discontinued, currently started on Eliquis 5 mg p.o. twice daily. Status: Acute (2) Lung mass: He is postoperative day # 5, status post right upper and middle lobectomy. Some concerns with recovery secondary to confusion and hypoxia. No pulmonary embolism seen on CTA. Status: Acute (3) Pneumonia: CTA shows right lower lobe pneumonia. Clinical suspicion for possible aspiration pneumonia. Urine Legionella antigen negative Urine bacterial antigen panel negative MRSA PCR negative Currently on Zosyn Incentive spirometer flutter valve. Patient will be discharged on p.o. antibiotics to complete total of 10 days of antibiotic course. Status: Acute (4) Confusion: Most probably postop confusion. Secondary to multiple medications to calm him down. Resolved since discontinuation of medication. Continue to monitor. Frequent reorientation. Xanax 0.5 twice daily as needed. Discussed in detail with patient regarding breathing exercises. Status: Acute (5) Hyponatremia: Improving. Continue to monitor. Stop IV fluids as patient is tolerating oral diet well. Status: Acute (6) COPD (chronic obstructive pulmonary disease): Start patient on DuoNebs every 6 hour, budesonide twice daily. Pulmonary toilet is already been ordered Status: Acute Plan CODE STATUS: Full code DVT prophylaxis: Not needed on Eliquis Attestations Medical Necessity Statement*: Patient is still in hospital for management of pneumonia A. fib with RVR. Need for IV antibiotics. Time Spent in Patient Care: Greater than 35 minutes (>than 50% of time spent in counselling and/or direct pt care on unit) . Coding Level of Care Code Acute Zig Zag Spring Machine Operator for Daniel Fwd Diagnoses Atrial fibrillation with rapid ventricular response I48.91 Lung mass R91.8 Pneumonia J18.9 Confusion R41.0 Hyponatremia E87.1 COPD (chronic obstructive pulmonary disease) J44.9
--- NOTE | 2021-08-26 16:49 | PM.MISC ---
Miscellaneous Note Purpose of Documentation: Mr. Ibarra has had a very good day. He has ambulated several times in the ICU. He has had another bowel movement. He states he is pulling 1750 on incentive spirometry. O2 saturation 95% or greater. Tolerating diet well. He has been evaluated and coached by our physical therapy department. He believes this has been quite beneficial. Will assess with my colleagues tomorrow after our review as to whether Mr. Duran could be transferred to [facility].
--- NOTE | 2021-08-26 18:08 | PC.NURSE ---
Pt ambulated 3 times today with this nurse. Going approximately 130' each time. Pt tolerated well. Dressing changed to R side incision and CT site per MD order. Pt in good spirits today. VSS. 5LNC. Will monitor.
[2021-08-27] VITALS (22 sets, daily range): BP systolic 99–129; BP diastolic 63–77; PULSE 63–94; RESP 16–26; TEMP 36.2–37.1; O2SAT 85–98; BMI 22.7
[2021-08-27] MEDS: piperacillin-tazobactam 3.375 GM in sodium chloride 0.9% (plus) 50 ML IV ×2 (00:53→09:02)
[2021-08-27] MEDS: ipratropium-albuterol 3 mL Neb INHALATION ×3 (04:35→20:00)
[2021-08-27 04:40] LABS: Platelet Count 204 10^3/cmm (130-400)
--- NOTE | 2021-08-27 05:46 | P.PN_ITS ---
Subjective Subjective: Mr. Stewart is asleep on rounds this morning. Nursing service reports he only required 1 oxycodone early in the evening and has been resting. No episodes of acute desaturation which he we have noted previously. Chest x-ray this morning reveals substantial improvement of aeration throughout most of the right lower lobe. There is minimal infiltrative pattern at the costodiaphragmatic angle, though otherwise the right lower lobe is clear. Mediastinal shift appears to not be as dramatic now with improved aeration of the right lower lobe. Vitals/I&O/Wt Last Vital Signs Temp 98.3 F 08/27/21 04:00 Pulse 89 08/27/21 04:35 Resp 18 08/27/21 04:35 BP 125/71 08/27/21 04:00 Pulse Ox 94 08/27/21 04:35 08/26/21 08/26/21 08/27/21 14:59 22:59 06:59 Intake Total 843.233 / 843.233 290 / 1133.233 300 / 1433.233 Output Total 500 / 500 875 / 1375 850 / 2225 Balance 343.233 / 343.233 -585 / -241.767 -550 / -791.767 Weight last 48 hrs Weight 169 lb 11.2 oz Weight 169 lb 1.6 oz Physical Exam Resp: OTHER: There is improved auscultation to the right side now that there is improved aeration to the right lower lobe. Left side remains clear. Cardio: COMMON NORMALS: regular rate, regular rhythm, S1 normal heart sound present and No murmurs present (Cardio) RATE: regular rate RHYTHM: regular rhythm HEART SOUNDS: S1 normal heart sound present GI: COMMON NORMALS: Normal to inspection, nondistended, normoactive bowel sounds present Extremity: COMMON NORMALS: no clubbing, cyanosis or edema Urinary Catheter Management: Corss: Cath Placed During This Visit: yes Reason for Continuing Indwelling Catheter: Accurate Measurement of Urinary Output in Critically Ill Patients Urinary Catheter Date of Insertion: 08/20/21 Urinary Catheter Time of Insertion: 14:15 Data : 08/27/21 03:57 08/26/21 01:40 Micro: Microbiology 08/24/21 14:45 Urine Culture - Final Urine,Clean Catch A&P Assessment and plan (1) Status post lobectomy of lung: Postop day #8. I will await the assessment of our hospitalist and pulmonary colleagues. If all are agreeable, will consider transfer to the [facility] for continued rehabilitation. Status: Acute Attestations Medical Necessity Statement*: Postop day #8 status post right lower lobectomy. Postoperative pneumonia, improving Coding Level of Care Code Acute Executive Services Administrator for Chg Fwd Diagnoses Status post lobectomy of lung Z90.2
--- NOTE | 2021-08-27 06:00 | XR_ITS ---
WS: [id number] XR chest 1V portable [id number] REASON FOR EXAM: 1 week s/p lobectomy;clinically improving FINDINGS: Compared to previous examination of 08/25/2021, improving of aeration of remnant right lung with resolv ing lung opacities. Reticular interstitial changes in the central and mid left lung which appear relatively stable compar ed to previous examinations. Widening of the mediastinum which does not appear as prominent as on the previous examination. (CT scan of the chest on 08/23/2021 demonstrated mediastinal hemorrhage, not reported, and likely hemop neumothorax on the right.) XR/XR chest 1V portable [id number] IMPRESSION: Improving abnormal postoperative chest as above.
[2021-08-27] MEDS: budesonide 0.5 mg/2 mL Neb INHALATION ×2 (08:35→19:58)
[2021-08-27] MEDS: amiodarone 200 mg Tablet PO ×2 (09:01→17:43)
[2021-08-27] MEDS: ferrous gluconate 324 mg Tablet PO ×2 (09:01→17:43)
[2021-08-27] MEDS: atorvastatin 40 mg Tablet 20 MG PO (09:01)
[2021-08-27] MEDS: pantoprazole DR 40 mg Tablet PO (09:01)
[2021-08-27] MEDS: fluoxetine 20 mg Capsule 40 MG PO (09:02)
[2021-08-27] MEDS: apixaban 5 mg Tablet PO ×2 (09:02→21:08)
--- NOTE | 2021-08-27 09:27 | P.PN_ITS ---
Subjective Subjective: -Patient seen at bedside today -Recovery as expected and is able to ambulate 2-3 rounds in ICU with transient desaturation -Slept well with no desaturation events -Significant improvement of aeration in right lower lobe on chest x-ray -Requiring 3 L of nasal cannula -Patient can be moved out of ICU and can continue physical therapy and pulmonary toileting -H&H stable and other labs and imaging are within acceptable limits -Pathology is still pending Medications: Reviewed: Yes Medication Review Details: Generic Name Dose Route Start Last Admin Trade Name Freq PRN Reason Stop Dose Admin Al Hydrox/Mg [place] x/Simethicone 30 ml 08/20/21 19:48 08/24/21 11:49 Obay-Mxj-Zjleecv de-Pati 30 Ml Udc PO 30 ml Q4H PRN Administration INDIGESTION Albuterol/Ipratrop ium 3 ml 08/22/21 16:33 08/23/21 07:38 Ipratropium-Albu terol 3 Ml Neb INHALATION 3 ml Q6H PRN Administration SHORTNESS OF JUN TH Albuterol/Ipratrop ium 3 ml 08/24/21 15:00 08/26/21 14:23 Ipratropium-Albu terol 3 Ml Neb INHALATION 3 ml Q6H.RESPIRATORY S CH Administration Amiodarone HCl 200 mg 08/24/21 09:45 08/26/21 08:15 Amiodarone 200 M g Tablet PO 200 mg BID ALISIA Administration Apixaban 5 mg 08/26/21 09:00 08/26/21 09:39 Apixaban 5 Mg Ta blet PO 5 mg BID@0900,2100 ALISIA Administration Atorvastatin Calci um 20 mg 08/21/21 09:00 08/26/21 08:15 Atorvastatin 40 Mg Tablet PO 20 mg DAILY ALISIA Administration Budesonide 0.5 mg 08/24/21 18:00 08/26/21 08:24 Budesonide 0.5 M g/2 Ml Neb INHALATION 0.5 mg BID ALISIA Administration Docusate Sodium 100 mg 08/20/21 19:48 08/23/21 19:19 Docusate Sodium 100 Mg Capsule PO 100 mg BID PRN Administration Constipation (Use 1st) Ferrous Gluconate 324 mg 08/24/21 18:00 08/26/21 08:15 Ferrous Gluconat e 324 Mg Tablet PO 324 mg BIDWM ALISIA Administration Fluoxetine HCl 40 mg 08/21/21 09:00 08/26/21 08:15 Fluoxetine 20 Mg Capsule PO 40 mg DAILY ALISIA Administration Piperacillin Sod/T azobactam 50 mls @ 12.5 mls /hr 08/23/21 09:30 08/26/21 13:55 Sod 3.375 gm/ So dium Chloride IV Infused Q8H ALISIA Infusion Protocol Ketorolac Trometha mine 30 mg 08/21/21 20:52 08/25/21 19:57 Ketorolac 30 Mg/ Ml Inj IVP 08/26/21 20:51 30 mg Q6H PRN Administration MODERATE PAIN Magnesium Hydroxid e 45 ml 08/20/21 19:48 08/25/21 09:44 Magnesium Hydrox tiki 30 Ml Udc PO 45 ml DAILY PRN Administration Constipation (use 4th) Morphine Sulfate 1 mg 08/24/21 10:09 08/25/21 15:09 Morphine 4 Mg/Ml Sdv 1 Ml IVP 1 mg Q2H PRN Administration SEVERE PAIN Ondansetron HCl 4 mg 08/20/21 19:48 08/20/21 20:49 Ondansetron 2 Mg /Ml Sdv 2 Ml IVP 4 mg Q6H PRN Administration NAUSEA AND VOMITI NG Oxycodone/Acetamin ophen 1 tab 08/20/21 19:48 08/26/21 11:35 Oxycodone-Apap 5 -325 Mg Tablet PO 1 tab Q4H PRN Administration MODERATE PAIN Pantoprazole Sodiu m 40 mg 08/21/21 09:00 08/26/21 08:[address] 40 Mg Tablet PO 40 mg DAILY ALISIA Administration Vitals/I&O/Wt Last Vital Signs Temp 98.3 F 08/27/21 04:00 Pulse 94 08/27/21 09:00 Resp 16 08/27/21 09:00 BP 127/69 08/27/21 06:00 Pulse Ox 97 08/27/21 09:00 08/26/21 08/27/21 08/27/21 22:59 06:59 14:59 Intake Total 290 / 1133.233 350 / 1483.233 Output Total 875 / 1375 1100 / 2475 Balance -585 / -241.767 -750 / -991.767 Weight last 48 hrs Weight 167 lb 11.2 oz Weight 169 lb 11.2 oz Physical Exam Narrative: General: alert, NAD HEENT: conj clear, EOMI, PERRL, mmm, Neck: supple, no meningismus Heme: no cervical LAP Pulmonary: Improved breath sounds on right, CTAB, no wheezing, rhonchi, crackles Cardiovascular: rrr, nl s1s2, no mrg Abdomen: soft, nt, nd, no r/g, bs+ Extremities: pulses +, no edema, no c/c : no CVA tenderness Skin: intact, no rash MSK: no back or neck pain Neurologic: grossly intact Urinary Catheter Management: Cross: Cath Placed During This Visit: yes Reason for Continuing Indwelling Catheter: Accurate Measurement of Urinary Output in Critically Ill Patients Urinary Catheter Date of Insertion: 08/20/21 Urinary Catheter Time of Insertion: 14:15 Data : 08/27/21 03:57 08/26/21 01:40 Other Labs: Radiology Impressions Chest CTA 08/23/21 03:46 IMPRESSION: 1. No pulmonary emboli identified. 2. Postsurgical changes of right upper and middle lobectomies. There is a small right hydropneumothorax. 3. There is evidence of aspiration or pneumonia in the right lower lobe and lingula. Chest X-Ray 08/27/21 06:00 IMPRESSION: Improving abnormal postoperative chest as above. Laboratory Results WBC 6.1 10^3/uL (4.0-10.0) 08/26/21 01:40 RBC 3.73 10^6/uL (4.1-5.3) L 08/26/21 01:40 Hgb 12.3 g/dL (11.7-16.6) 08/26/21 01:40 Hct 36.2 % (42.0-52.0) L 08/26/21 01:40 MCV 97.1 fl (80-94) H 08/26/21 01:40 MCH 33.0 pg (28.0-34.0) 08/26/21 01:40 MCHC 34.0 g/dL (30.0-36.0) 08/26/21 01:40 RDW 13.9 % (12.1-15.1) 08/26/21 01:40 Plt Count 204 10^3/cmm (130-400) 08/27/21 03:57 MPV 9.9 fL (7.4-10.4) 08/26/21 01:40 Neut % (Auto) 61.6 % 08/26/21 01:40 Lymph % (Auto) 19.6 % 08/26/21 01:40 [place] % (Auto) 12.2 % 08/26/21 01:40 Eos % (Auto) 5.3 % 08/26/21 01:40 Baso % (Auto) 0.3 % 08/26/21 01:40 Neut # (Auto) 3.75 10^3/uL (1.8-7.7) 08/26/21 01:40 Lymph # (Auto) 1.2 10^3/uL (0.8-4.8) 08/26/21 01:40 [place] # (Auto) 0.7 10^3/uL (0.2-0.9) 08/26/21 01:40 Eos # (Auto) 0.3 10^3/uL (0.0-0.8) 08/26/21 01:40 Baso # (Auto) 0.0 10^3/uL (0.0-0.1) 08/26/21 01:40 Nucleated RBC % (auto) 0 % 08/26/21 01:40 Nucleated RBCs # 0.0 /100WBC 08/26/21 01:40 PT 13.10 SECONDS (12.1-14.9) 08/14/21 13:41 INR 0.96 (0.8-1.2) 08/14/21 13:41 APTT 61.4 SECONDS (23.9-36.7) H 08/26/21 07:38 D-Dimer 1.47 ug/mIFEU (0-0.59) H 08/23/21 08:33 Sodium 137 mmol/L (136-145) 08/26/21 01:40 Potassium 3.9 mmol/L (3.5-5.1) 08/26/21 01:40 Chloride 102 mmol/L (98-107) 08/26/21 01:40 Carbon Dioxide 25 mmol/L (22-29) 08/26/21 01:40 Anion Gap 13.9 (5-19) 08/26/21 01:40 BUN 15 mg/dL (8-23) 08/26/21 01:40 Creatinine 0.7 mg/dL (0.7-1.2) 08/26/21 01:40 GFR Calculation 111.5 mL/min (90-130) 08/26/21 01:40 Glucose 105 mg/dL (65-115) 08/26/21 01:40 POC Glucose 95 mg/dL (70-110) 08/24/21 12:01 Estimat Average Glucose 97 08/25/21 05:40 Hemoglobin A1c 5.0 % (4.0-6.0) 08/25/21 05:40 Calculated Osmolality 285 mOsm/kg (285-295) 08/26/21 01:40 Calcium 8.5 mg/dL (8.5-10.5) 08/26/21 01:40 Magnesium 2.3 mg/dL (1.7-2.3) 08/23/21 04:09 Iron 30 ug/dL (59-158) L 08/24/21 08:48 TIBC 204 mcg/dl 08/24/21 08:48 % Saturation 14.7 % (20-50) L 08/24/21 08:48 Unsat Iron Binding 174 ug/dL (112-347) 08/24/21 08:48 Total Bilirubin 0.5 mg/dL (0.15-1.2) 08/26/21 01:40 AST 44 U/L (0-40) H 08/26/21 01:40 ALT 41 U/L (0-41) 08/26/21 01:40 Alkaline Phosphatase 82 IU/L (40-130) 08/26/21 01:40 Total Protein 5.3 g/dL (6.6-8.7) L 08/26/21 01:40 Albumin 2.9 g/dL (3.5-5.2) L 08/26/21 01:40 Globulin 2.4 g/dL (1.3-4.6) 08/26/21 01:40 Triglycerides 68 mg/dL (0-150) 08/25/21 05:40 Cholesterol 111 mg/dL (0-200) 08/25/21 05:40 LDL Cholesterol, Calc 58 mg/dL (50-129) 08/25/21 05:40 Total VLDL Cholesterol 14 mg/dL (0-30) 08/25/21 05:40 HDL Cholesterol 39 mg/dL (60-100) L 08/25/21 05:40 Cholesterol/HDL Ratio 2.85 mg/dL (1.0-5.00) 08/25/21 05:40 Procalcitonin 0.19 ng/mL (0-0.5) 08/24/21 08:48 TSH 1.34 uIU/mL (0.27-4.20) 08/23/21 04:09 Urine Color Yellow (Yellow) 08/24/21 14:45 Urine Appearance Clear (CLEAR) 08/24/21 14:45 Urine pH 7 (5-7) 08/24/21 14:45 Ur Specific [place] 1.005 (1.005-1.030) 08/24/21 14:45 Urine Protein Neg (Negative) 08/24/21 14:45 Urine Glucose (UA) 1+ (Normal) H 08/24/21 14:45 Urine Ketones Negative (Negative) 08/24/21 14:45 Urine Blood 3+ (Negative) H 08/24/21 14:45 Urine Nitrate Negative (Negative) 08/24/21 14:45 Urine Bilirubin Neg (Negative) 08/24/21 14:45 Urine Urobilinogen Norm mg/dL (Negative) 08/24/21 14:45 Ur Leukocyte Esterase Trace (Negative) H 08/24/21 14:45 Urine RBC 25-40 /hpf (0-2) H 08/24/21 14:45 Urine WBC 0-4 /hpf (0-5) H 08/24/21 14:45 Ur Squamous Epith Cells 0-4 /hpf (0-5) H 08/24/21 14:45 Amorphous Sediment Not Reportable 08/24/21 14:45 Urine Bacteria Trace /hpf (NONE) 08/24/21 14:45 Blood Type O Positive 08/14/21 13:41 Rho(D) Type Positive 08/14/21 13:41 Antibody Screen Negative 08/14/21 13:41 Crossmatch See Detail 08/14/21 13:41 Micro: Microbiology 08/24/21 14:45 Urine Culture - Final Urine,Clean Catch A&P Assessment and plan (1) Status post lobectomy of lung: Status: Acute (2) COPD (chronic obstructive pulmonary disease): Status: Acute (3) Right upper lobe pulmonary nodule: Status: Acute (4) Aspiration pneumonia: Status: Acute Plan #PET positive right upper lobe spiculated nodule SUV 5.8 - patient underwent right upper lobe and middle lobe lobectomy on 08/20/2021 - Pathology pending -Extubated uneventfully post surgery -Today postop day 7: -Saturating 92% on 3L nasal cannula -Pulling up to 1000 cc on incentive spirometry. Clinically stable - Toradol, morphine as needed Percocet as needed-for pain - CTA visit 2021 which ruled out pulmonary embolism but showed right lower lobe infiltrate suggestive of aspiration. Speech therapy consulted and reported mild risk of aspiration especially with liquids and so started patient on mechanical soft with nectar thick liquids; -on Zosyn (day 5) for aspiration -DC Zosyn and switch to Augmentin 875 p.o. twice daily for 5 more days to complete total 10 days - Chest x-ray today: Substantial improvement of right lower lobe aeration -Good urine output & electrolytes within normal limits -Prior to lobectomies-preoperative FEV1 of 2.47 which is 72% of predicted and DLCO 40% predicted.predicted postoperative FEV1 1.82 L and DLCO 29% mild improvement with bronchodilator.?Reported using 1 to 2 L previously on exertion and sometimes at nighttime. -Given his predicted postoperative DLCO 29%-he may require continuous oxygen supplementation; plan is to taper him down -Encourage incentive spirometry/physical therapy/pulmonary toileting -please make arrangements for outpatient pulmonary rehabilitation -We will repeat PFTs as outpatient # episodes of acute dyspnea and desaturation to low 70s while sleeping -Recommended AutoPap 6-12 at night as he may have component of undiagnosed KUSH - needs sleep study post discharge -Other considerations for hypoxic episodes-May be exacerbation of undiagnosed ASD/PFO - CV echo 08/23/2021: LV appears normal size and ejection fraction. Otherwise technically difficult study and only subcostal views were obtained #Stable large calcified PET negative left upper lobe lesion -This includes no evidence for kamaljit activity and there is no activity in the larger calcified left upper lobe lesion which has been followed for several years. #There is minimal FDG uptake in a 6 mm superior segment left lower lobe nodule - though this is too small to reliably characterize at this time.? This will need close follow-up.? #Evidence of emphysema on CT chest # reported smoking several packs a day for more than 50 years-recently down to less than 1 pack a day. -PFT 07/31/2021: The postbronchodilator spirometry is consistent with moderate airflow obstruction.? There is no significant postbronchodilator response.Lung volumes are normal. Gas exchange (DLCO) is moderately reduced -Continue DuoNeb every 6 hr for shortness of breath and wheezing -Continue Trelegy 1 puff daily as outpatient -Follow-up for COPD as outpatient in pulmonary clinic #A. fib-rate controlled with amiodarone 200 p.o. twice daily - Electrolytes within normal limits -Eliquis 5 mg twice daily Regular diet-mechanical soft with nectar liquids Full code DVT prophylaxis: Eliquis Updated patient and his at bedside They verbalized understanding and agreed with the plan. Recommendations conveyed to Dr. Mccartney, RN, RT taking care of the patient Okay to transfer out of ICU I will sign off case as patient is clinically stable and made good recovery post surgery. Please consult as needed. Attestations Medical Necessity Statement*: - postop day 8-steady improvement Time Spent in Patient Care: Greater than 35 minutes (>than 50% of time spent in counselling and/or direct pt care on unit) . Critical Care Time: The high probability of a clinically significant, sudden or life threatening deterioration of the patient's [pulmonary, cardiac system(s) required my full and direct attention, intervention and personal management. The critical care time is as shown. This time is in addition to time spent performing any reported procedures but includes the following: [x] Data and vital sign review and interpretation [x] Patient assessment, examination and intervention [x] Documentation [x] Medication orders and management Critical Care Time (min): 45 Coding Level of Care Code Established Pt Acute Biometric Screener for Chg Fwd Patient Type Established History Comprehensive Exam Comprehensive Medical Decision Making High Complexity Diagnoses Status post lobectomy of lung Z90.2 COPD (chronic obstructive pulmonary disease) J44.9 Right upper lobe pulmonary nodule R91.1 Aspiration pneumonia J69.0 Time Spent (min) 45
--- NOTE | 2021-08-27 13:36 | PC.SOCIAL ---
IMM Updated Updated pt IMM. No questions voiced. Provided pt a copy. Initialed, dated, & timed copy in chart.
--- NOTE | 2021-08-27 14:17 | PC.NURSE ---
transferred patient to [facility] surge room 268. Report given to and patient received by zeferino DOYLE
--- NOTE | 2021-08-27 15:37 | P.PN_ITS ---
Subjective Subjective: Patient was seen and examined this morning, overall he is doing better currently requiring, 3 to 4 L supplemental oxygen.Currently in sinus rhythm. Medications: Reviewed: Yes Medication Review Details: Generic Name Dose Route Start Last Admin Trade Name Freq PRN Reason Stop Dose Admin Al Hydrox/Mg [place] x/Simethicone 30 ml 08/20/21 19:48 08/24/21 11:49 Cnlq-Yqm-Ibcevsk de-Pati 30 Ml Udc PO 30 ml Q4H PRN Administration INDIGESTION Albuterol/Ipratrop ium 3 ml 08/22/21 16:33 08/23/21 07:38 Ipratropium-Albu terol 3 Ml Neb INHALATION 3 ml Q6H PRN Administration SHORTNESS OF JUN TH Albuterol/Ipratrop ium 3 ml 08/24/21 15:00 08/26/21 14:23 Ipratropium-Albu terol 3 Ml Neb INHALATION 3 ml Q6H.RESPIRATORY S CH Administration Amiodarone HCl 200 mg 08/24/21 09:45 08/26/21 08:15 Amiodarone 200 M g Tablet PO 200 mg BID ALISIA Administration Apixaban 5 mg 08/26/21 09:00 08/26/21 09:39 Apixaban 5 Mg Ta blet PO 5 mg BID@0900,2100 ALISIA Administration Atorvastatin Calci um 20 mg 08/21/21 09:00 08/26/21 08:15 Atorvastatin 40 Mg Tablet PO 20 mg DAILY ALISIA Administration Budesonide 0.5 mg 08/24/21 18:00 08/26/21 08:24 Budesonide 0.5 M g/2 Ml Neb INHALATION 0.5 mg BID ALISIA Administration Docusate Sodium 100 mg 08/20/21 19:48 08/23/21 19:19 Docusate Sodium 100 Mg Capsule PO 100 mg BID PRN Administration Constipation (Use 1st) Ferrous Gluconate 324 mg 08/24/21 18:00 08/26/21 08:15 Ferrous Gluconat e 324 Mg Tablet PO 324 mg BIDWM ALISIA Administration Fluoxetine HCl 40 mg 08/21/21 09:00 08/26/21 08:15 Fluoxetine 20 Mg Capsule PO 40 mg DAILY ALISIA Administration Piperacillin Sod/T azobactam 50 mls @ 12.5 mls /hr 08/23/21 09:30 08/26/21 13:55 Sod 3.375 gm/ So dium Chloride IV Infused Q8H ALISIA Infusion Protocol Ketorolac Trometha mine 30 mg 08/21/21 20:52 08/25/21 19:57 Ketorolac 30 Mg/ Ml Inj IVP 08/26/21 20:51 30 mg Q6H PRN Administration MODERATE PAIN Magnesium Hydroxid e 45 ml 08/20/21 19:48 08/25/21 09:44 Magnesium Hydrox tiki 30 Ml Udc PO 45 ml DAILY PRN Administration Constipation (use 4th) Morphine Sulfate 1 mg 08/24/21 10:09 08/25/21 15:09 Morphine 4 Mg/Ml Sdv 1 Ml IVP 1 mg Q2H PRN Administration SEVERE PAIN Ondansetron HCl 4 mg 08/20/21 19:48 08/20/21 20:49 Ondansetron 2 Mg /Ml Sdv 2 Ml IVP 4 mg Q6H PRN Administration NAUSEA AND VOMITI NG Oxycodone/Acetamin ophen 1 tab 08/20/21 19:48 08/26/21 11:35 Oxycodone-Apap 5 -325 Mg Tablet PO 1 tab Q4H PRN Administration MODERATE PAIN Pantoprazole Sodiu m 40 mg 08/21/21 09:00 08/26/21 08:[address] 40 Mg Tablet PO 40 mg DAILY ALISIA Administration Vitals/I&O/Wt Last Vital Signs Temp 97.1 F L 08/27/21 09:00 Pulse 72 08/27/21 13:00 Resp 24 H 08/27/21 13:00 BP 99/65 08/27/21 14:00 Pulse Ox 85 L 08/27/21 14:09 08/27/21 08/27/21 08/27/21 06:59 14:59 22:59 Intake Total 350 / 1483.233 550 / 550 Output Total 1100 / 2475 200 / 200 Balance -750 / -991.767 350 / 350 Weight last 48 hrs Weight 76.067 kg Weight 76.975 kg Physical Exam Const: COMMON NORMALS: patient oriented x3 HENMT: COMMON NORMALS: normocephalic and atraumatic HEAD & SCALP: normocephalic and atraumatic Chest: CHEST: Yes Symmetrical chest wall rise Resp: COMMON NORMALS: normal respiratory effort and No retractions EFFORT & INSPECTION: Yes symmetric chest movement Cardio: COMMON NORMALS: regular rate, regular rhythm, S1 normal heart sound present, S2 normal heart sound present, No gallops present (Cardio), No murmurs present (Cardio), No rub (Cardio) and Peripheral pulses 2+ throughout RATE: regular rate RHYTHM: regular rhythm HEART SOUNDS: S1 normal heart sound present and S2 normal heart sound present PERIPHERAL PULSES: Peripheral pulses 2+ throughout GI: COMMON NORMALS: Normal to inspection, nondistended, normoactive bowel sounds present, Soft to palpation, non-tender, No hepatosplenomegaly present and no masses AUSCULTATION: Yes normoactive bowel sounds PALPATION: Yes Soft to palpation and Yes No hepatosplenomegaly present RECTAL EXAM: Yes deferred Extremity: COMMON NORMALS: no clubbing, cyanosis or edema and no pedal edema Neuro: COMMON NORMALS: patient oriented x3 Urinary Catheter Management: Cross: Cath Placed During This Visit: yes Reason for Continuing Indwelling Catheter: Accurate Measurement of Urinary Output in Critically Ill Patients Urinary Catheter Date of Insertion: 08/20/21 Urinary Catheter Time of Insertion: 14:15 Data : 08/27/21 03:57 08/26/21 01:40 A&P Assessment and plan (1) Atrial fibrillation with rapid ventricular response: Rate controlled currently. Back to sinus rhythm. Amiodarone drip stopped. Continue with oral amiodarone 200 mg twice daily. We will plan for 7 days of amiodarone 200 mg twice daily followed by 200 mg daily. Patient was on a heparin drip has been discontinued, currently started on Eliq uis 5 mg p.o. twice daily. Status: Acute (2) Lung mass: He is postoperative day # 5, status post right upper and middle lobectomy. Some concerns with recovery secondary to confusion and hypoxia. No pulmonary embolism seen on CTA. Status: Acute (3) Pneumonia: CTA shows right lower lobe pneumonia. Clinical suspicion for possible aspiration pneumonia. Urine Legionella antigen negative Urine bacterial antigen panel negative MRSA PCR negative Currently on Zosyn Incentive spirometer flutter valve. Patient will be discharged on p.o. antibiotics to complete total of 10 days of antibiotic course. Status: Acute (4) Confusion: Most probably postop confusion. Secondary to multiple medications to calm him down. Resolved since discontinuation of medication. Continue to monitor. Frequent reorientation. Xanax 0.5 twice daily as needed. Discussed in detail with patient regarding breathing exercises. Status: Acute (5) Hyponatremia: Improving. Continue to monitor. Stop IV fluids as patient is tolerating oral diet well. Status: Acute (6) COPD (chronic obstructive pulmonary disease): Start patient on DuoNebs every 6 hour, budesonide twice daily. Pulmonary toilet is already been ordered Status: Acute Plan CODE STATUS: Full code DVT prophylaxis: Not needed on Eliquis Attestations Medical Necessity Statement*: Per primary team Coding Level of Care Code Acute Winch Driver for Chg Fwd Diagnoses Atrial fibrillation with rapid ventricular response I48.91 Lung mass R91.8 Pneumonia J18.9 Confusion R41.0 Hyponatremia E87.1 COPD (chronic obstructive pulmonary disease) J44.9
[2021-08-27] MEDS: oxyCODONE-APAP 5-325 mg Tablet 1 TAB PO (16:50)
[2021-08-27] MEDS: amoxicillin-clav 875-125 mg Tablet 1 TAB PO (17:43)
--- NOTE | 2021-08-27 23:09 | NUR.SHIFT ---
PATIENT RESTING IN BED AT THIS TIME IN NO ACUTE DISTRESS, NO COMPLAINTS OF PAIN OR DISCOMFORT VOICED. PATIENT STATED HE DOES NOT FEEL SHORT OF BREATH AT THIS TIME. 350 CC CLEAR YELLOW URINE EMPTIED FROM URINAL AT THIS TIME. PATIENT RESTING COMFORTABLY IN BED AT THIS TIME. CALL LIGHT WITHIN REACH.
[2021-08-28] VITALS (11 sets, daily range): BP systolic 104–126; BP diastolic 55–76; PULSE 65–86; RESP 16–18; TEMP 36.6–37; O2SAT 94–97
[2021-08-28] MEDS: ipratropium-albuterol 3 mL Neb INHALATION ×2 (03:36→08:54)
[2021-08-28 04:58] LABS: Basophils % 0.3 %; Eosinophils # 0.4 10^3/uL (0.0-0.8); Eosinophils % 5.5 %; Hematocrit 37.2 % (42.0-52.0); Hemoglobin 12.3 g/dL (11.7-16.6); Lymphocytes # 0.9 10^3/uL (0.8-4.8); Lymphocytes % 12.1 %; Mean Corpuscular HGB Conc 33.1 g/dL (30.0-36.0); Mean Corpuscular Hemoglobin 32.8 pg (28.0-34.0); Mean Corpuscular Volume 99.2 fl (80-94); Mean Platelet Volume 9.8 fL (7.4-10.4); Monocytes # 0.8 10^3/uL (0.2-0.9); Monocytes % 11.3 %; Neutrophils # 4.94 10^3/uL (1.8-7.7); Neutrophils % 69.4 %; Nucleated Red Blood Cells % 0 %; Platelet Count 208 10^3/cmm (130-400); Red Blood Count 3.75 10^6/uL (4.1-5.3); White Blood Count 7.1 10^3/uL (4.0-10.0)
--- NOTE | 2021-08-28 05:44 | PC.NURSE ---
Shift Summary- Patient rested in bed throughout the night. Alert and oriented, VSS. Dressing to right side clean dry and intact. Patient has no complaints of pain voiced this shift. 4L O2 remains on patient throughout the night via nasal cannula. Continuos pulse ox on patient throughout the night as ordered by MD. No desaturations noticed this shift. Telemetry shows normal sinus rhythm. Voiding clear yellow urine with no difficulties. Patient resting in bed at this time in no acute distress, call light within reach.
[2021-08-28 06:08] LABS: Anion Gap 13.7 (5-19); Blood Urea Nitrogen 11 mg/dL (8-23); Calcium 8.8 mg/dL (8.5-10.5); Carbon Dioxide 22 mmol/L (22-29); Chloride 100 mmol/L (98-107); Glomerular Filtration Rate 164.4 mL/min (90-130); Glucose 112 mg/dL (65-115); Osmolality Calculated 274 mOsm/kg (285-295); Potassium 3.7 mmol/L (3.5-5.1); Sodium 132 mmol/L (136-145)
--- NOTE | 2021-08-28 07:06 | PM.PN ---
Subjective Subjective: Nursing service reports that Mr. Stewart had a very good night. No episodes of desaturation. He is sleeping on my early rounds this morning with an O2 saturation of 97% and normal respirations. Laboratory data looks good with no normal white count 7.1. H&H remained stable. Electrolytes are normal with mild hypokalemia at 3.7. We will supplement orally. Vitals/I&O/Wt Last Vital Signs Temp 98.2 F 08/28/21 04:03 Pulse 65 08/28/21 05:38 Resp 17 08/28/21 04:03 BP 126/72 08/28/21 04:03 Pulse Ox 94 08/28/21 04:03 08/27/21 08/28/21 08/28/21 22:59 06:59 14:59 Intake Total 340 / 890 350 / 1240 Output Total 1230 / 1430 700 / 2130 Balance -890 / -540 -350 / -890 Weight last 48 hrs Weight 167 lb 11.2 oz Physical Exam Chest: COMMONS NORMALS: normal inspection of the chest and normal palpation of entire chest wall Resp: COMMON NORMALS: normal respiratory effort and clear to auscultation bilaterally AUSCULTATION: clear to auscultation bilaterally Cardio: COMMON NORMALS: regular rate, regular rhythm, S1 normal heart sound present and No murmurs present (Cardio) RATE: regular rate RHYTHM: regular rhythm HEART SOUNDS: S1 normal heart sound present Extremity: COMMON NORMALS: no clubbing, cyanosis or edema Urinary Catheter Management: Cross: Cath Placed During This Visit: yes Reason for Continuing Indwelling Catheter: Accurate Measurement of Urinary Output in Critically Ill Patients Urinary Catheter Date of Insertion: 08/20/21 Urinary Catheter Time of Insertion: 14:15 Data : 08/28/21 04:30 08/28/21 04:30 A&P Assessment and plan (1) Status post lobectomy of lung: Discharge planning in progress. I will ask respiratory therapy form O2 saturation titers to determine his oxygen requirements after discharge. We will confirm home health will available for frequent assessments. I will assess his functional capacity today to determine timing of discharge. Greatly appreciate assistance of Dr. Padilla and have our hospitalist colleagues. Status: Acute Attestations Medical Necessity Statement*: Status post lobectomy Coding Level of Care Code Acute Supervisor Operations for Chg Fwd Diagnoses Status post lobectomy of lung Z90.2
[2021-08-28] MEDS: oxyCODONE-APAP 5-325 mg Tablet 1 TAB PO (08:02)
[2021-08-28] MEDS: ferrous gluconate 324 mg Tablet PO (08:02)
[2021-08-28] MEDS: pantoprazole DR 40 mg Tablet PO (08:03)
[2021-08-28] MEDS: amoxicillin-clav 875-125 mg Tablet 1 TAB PO (08:03)
[2021-08-28] MEDS: apixaban 5 mg Tablet PO (08:04)
[2021-08-28] MEDS: fluoxetine 20 mg Capsule 40 MG PO (08:04)
[2021-08-28] MEDS: potassium chloride ER 20 mEq Tablet 40 MEQ PO (08:05)
[2021-08-28] MEDS: ALPRAZolam 0.5 mg Tablet PO (08:05)
[2021-08-28] MEDS: amiodarone 200 mg Tablet PO (08:06)
[2021-08-28] MEDS: atorvastatin 40 mg Tablet 20 MG PO (08:06)
[2021-08-28] MEDS: budesonide 0.5 mg/2 mL Neb INHALATION (08:54)
--- NOTE | 2021-08-28 11:32 | PM.PN ---
Subjective Subjective: Patient was seen and examined this morning, overall he is doing better, has qualified for 4 L supplemental oxygen. Continue to be in sinus rhythm, H&H has remained stable. Medications: Reviewed: Yes Medication Review Details: Generic Name Dose Route Start Last Admin Trade Name Freq PRN Reason Stop Dose Admin Al Hydrox/Mg [place] x/Simethicone 30 ml 08/20/21 19:48 08/24/21 11:49 Exqr-Pef-Nlohbno de-Pati 30 Ml Udc PO 30 ml Q4H PRN Administration INDIGESTION Albuterol/Ipratrop ium 3 ml 08/22/21 16:33 08/23/21 07:38 Ipratropium-Albu terol 3 Ml Neb INHALATION 3 ml Q6H PRN Administration SHORTNESS OF JUN TH Albuterol/Ipratrop ium 3 ml 08/24/21 15:00 08/26/21 14:23 Ipratropium-Albu terol 3 Ml Neb INHALATION 3 ml Q6H.RESPIRATORY S CH Administration Amiodarone HCl 200 mg 08/24/21 09:45 08/26/21 08:15 Amiodarone 200 M g Tablet PO 200 mg BID ALISIA Administration Apixaban 5 mg 08/26/21 09:00 08/26/21 09:39 Apixaban 5 Mg Ta blet PO 5 mg BID@0900,2100 ALISIA Administration Atorvastatin Calci um 20 mg 08/21/21 09:00 08/26/21 08:15 Atorvastatin 40 Mg Tablet PO 20 mg DAILY ALISIA Administration Budesonide 0.5 mg 08/24/21 18:00 08/26/21 08:24 Budesonide 0.5 M g/2 Ml Neb INHALATION 0.5 mg BID ALISIA Administration Docusate Sodium 100 mg 08/20/21 19:48 08/23/21 19:19 Docusate Sodium 100 Mg Capsule PO 100 mg BID PRN Administration Constipation (Use 1st) Ferrous Gluconate 324 mg 08/24/21 18:00 08/26/21 08:15 Ferrous Gluconat e 324 Mg Tablet PO 324 mg BIDWM ALISIA Administration Fluoxetine HCl 40 mg 08/21/21 09:00 08/26/21 08:15 Fluoxetine 20 Mg Capsule PO 40 mg DAILY ALISIA Administration Piperacillin Sod/T azobactam 50 mls @ 12.5 mls /hr 08/23/21 09:30 08/26/21 13:55 Sod 3.375 gm/ So dium Chloride IV Infused Q8H ALISIA Infusion Protocol Ketorolac Trometha mine 30 mg 08/21/21 20:52 08/25/21 19:57 Ketorolac 30 Mg/ Ml Inj IVP 08/26/21 20:51 30 mg Q6H PRN Administration MODERATE PAIN Magnesium Hydroxid e 45 ml 08/20/21 19:48 08/25/21 09:44 Magnesium Hydrox itki 30 Ml Udc PO 45 ml DAILY PRN Administration Constipation (use 4th) Morphine Sulfate 1 mg 08/24/21 10:09 08/25/21 15:09 Morphine 4 Mg/Ml Sdv 1 Ml IVP 1 mg Q2H PRN Administration SEVERE PAIN Ondansetron HCl 4 mg 08/20/21 19:48 08/20/21 20:49 Ondansetron 2 Mg /Ml Sdv 2 Ml IVP 4 mg Q6H PRN Administration NAUSEA AND VOMITI NG Oxycodone/Acetamin ophen 1 tab 08/20/21 19:48 08/26/21 11:35 Oxycodone-Apap 5 -325 Mg Tablet PO 1 tab Q4H PRN Administration MODERATE PAIN Pantoprazole Sodiu m 40 mg 08/21/21 09:00 08/26/21 08:[address] 40 Mg Tablet PO 40 mg DAILY ALISIA Administration Vitals/I&O/Wt Last Vital Signs Temp 97.8 F 08/28/21 11:10 Pulse 73 08/28/21 11:10 Resp 17 08/28/21 11:10 BP 104/55 08/28/21 11:10 Pulse Ox 96 08/28/21 11:10 08/27/21 08/28/21 08/28/21 22:59 06:59 14:59 Intake Total 340 / 890 350 / 1240 480 / 480 Output Total 1230 / 1430 700 / 2130 350 / 350 Balance -890 / -540 -350 / -890 130 / 130 Weight last 48 hrs Weight 76.067 kg Physical Exam Const: COMMON NORMALS: patient oriented x3 HENMT: COMMON NORMALS: normocephalic and atraumatic HEAD & SCALP: normocephalic and atraumatic Chest: CHEST: Yes Symmetrical chest wall rise Resp: COMMON NORMALS: normal respiratory effort and No retractions EFFORT & INSPECTION: Yes symmetric chest movement Cardio: COMMON NORMALS: regular rate, regular rhythm, S1 normal heart sound present, S2 normal heart sound present, No gallops present (Cardio), No murmurs present (Cardio), No rub (Cardio) and Peripheral pulses 2+ throughout RATE: regular rate RHYTHM: regular rhythm HEART SOUNDS: S1 normal heart sound present and S2 normal heart sound present PERIPHERAL PULSES: Peripheral pulses 2+ throughout GI: COMMON NORMALS: Normal to inspection, nondistended, normoactive bowel sounds present, Soft to palpation, non-tender, No hepatosplenomegaly present and no masses AUSCULTATION: Yes normoactive bowel sounds PALPATION: Yes Soft to palpation and Yes No hepatosplenomegaly present RECTAL EXAM: Yes deferred Extremity: COMMON NORMALS: no clubbing, cyanosis or edema and no pedal edema Neuro: COMMON NORMALS: patient oriented x3 Urinary Catheter Management: Cross: Cath Placed During This Visit: yes Reason for Continuing Indwelling Catheter: Accurate Measurement of Urinary Output in Critically Ill Patients Urinary Catheter Date of Insertion: 08/20/21 Urinary Catheter Time of Insertion: 14:15 Data : 08/28/21 04:30 08/28/21 04:30 A&P Assessment and plan (1) Atrial fibrillation with rapid ventricular response: Currently in normal sinus rhythm. Was on amiodarone drip has been switched to oral amiodarone will follow the loading protocol. Was on heparin drip has been switched to Eliquis. H&H is stable. Status: Acute (2) Lung mass: S/P right upper and middle lobectomy. No pulmonary embolism seen on CTA. Status: Acute (3) Pneumonia: CTA shows right lower lobe pneumonia. Clinical suspicion for possible aspiration pneumonia. Urine Legionella antigen negative Urine bacterial antigen panel negative MRSA PCR negative Was on Zosyn has been switched to Augmentin Patient will be discharged on p.o. Augmentin for another 7 days. Incentive spirometer flutter valve. Status: Acute (4) Confusion: Most probably postop confusion. Secondary to multiple medications to calm him down. Resolved since discontinuation of medication. Continue to monitor. Frequent reorientation. Xanax 0.5 twice daily as needed. Discussed in detail with patient regarding breathing exercises. Status: Acute (5) Hyponatremia: Continue to encourage oral intake Status: Acute (6) COPD (chronic obstructive pulmonary disease): Start patient on DuoNebs every 6 hour, budesonide twice daily. Pulmonary toilet is already been ordered Status: Acute Plan CODE STATUS: Full code DVT prophylaxis: Not needed on Eliquis Attestations Medical Necessity Statement*: Per primary team Coding Level of Care Code Acute Director Software Development for g Fwd Diagnoses Atrial fibrillation with rapid ventricular response I48.91 Lung mass R91.8 Pneumonia J18.9 Confusion R41.0 Hyponatremia E87.1 COPD (chronic obstructive pulmonary disease) J44.9
--- NOTE | 2021-08-28 14:17 | P.DS_ITS ---
Discharge Providers Date of Admission: 08/20/21 19:35 Date of Discharge: August 28, 2021 Attending Provider at Admission: Gaston Mccartney MD Attending Provider at Discharge: Gaston Mccartney MD Consults: Dr. Padilla Hospitalist Service Primary Care Provider: Kelly McguireP-Bertha Diagnoses at Discharge Discharge Diagnosis (1) Atrial fibrillation with rapid ventricular response: Status: Acute (2) Lung mass: Status: Acute (3) Pneumonia: Status: Acute (4) Confusion: Status: Acute (5) Hyponatremia: Status: Acute (6) COPD (chronic obstructive pulmonary disease): Status: Acute Reason for Visit Reason for Visit: Brief History: Right upper lobe lung mass with increased activity on PET scan, stellate appearance on CT scan and newly discovered upon review of prior radiographic studies. Long history of tobacco use. Hospital Course Hospital Course Mr. Ibarra is a 70-year-old gentleman who was admitted on August 20 after outpatient referral and evaluation for a newly discovered right upper lobe lung mass with had a stellate appearance and had not been noted on previous radiographic studies. He has a known history of a large calcified left upper lobe lung l esion which has a benign appearance and has been unchanged over several exams over extended period of time. This new right upper lobe mass has not been seen previously. Outpatient PET scan imaging was performed and revealed increased activity substantial generalized adenopathy though there was no particular increased activity in this hilar or mediastinal adenopathy. Because of this newly discovered lesion, increased activity on PET scan, and long history tobacco use, resection was recommended. He underwent preoperative evaluation with pulmonary function studies which revealed adequate volume reserve though he did have decreased diffusion capacity. He did utilize oxygen at home at night as needed for some time prior to his presentation. Mr. Ibarra was admitted on August 20 and underwent right upper lobectomy related to minimal fissuring between the upper lobe and middle lobe. He had moderately advanced emphysematous changes to his lung parenchyma. Pathology has been sent out for referral and therefore results are pending. Postoperative, he convalesced in the ICU where his initial 2 postoperative days were uneventful though he began having some increasing oxygen demands and acute periods of desaturation along with episodes of atrial fibrillation which was treated medically with subsequent spontaneous cardioversion within 48 hours while on amiodarone. He remained in sinus rhythm since that time. Continued follow-up revealed evidence for right lower lobe pneumonia. Chest tube output decreased after the first 4 days and his airleak had completely dissipated by the third da y. Chest tube was subsequently removed. Consultation with Dr. Padilla was initiated as well as with our hospitalist service. He was placed on Zosyn antibiotic therapy and underwent aggressive pulmonary toilet in the ICU. Simply, he made slow but steady advancement of his pulmonary status and has had no episodes of desaturation for 4 days. Oxygen requirements are continuing to decrease and his overall endurance is improving. He is now pulling over 2000 cc on incentive spirometry. Bowel and bladder function have returned to normal. Appetite is good. Incision is clean and dry. He is eager for discharge home. We have made arrangements for portable oxygen concentrator. He already has a home oxygen concentrator on site. He will be scheduled to follow-up with me as well as with Dr. Padilla. We have also made arrangements for pulmonary rehabilitation on outpatient basis. Home health arrangements have also been completed for in-home visits and assessment. Because of his episodic atrial fibrillation during the early part of his postoperative stay, we elected to place him on Eliquis 5 mg twice daily for the next 30 days as prophylaxis should he develop further episodes. If he remains in sinus rhythm, we will discontinue anticoagulation. Contact information has been provided for Mr. Ibarra and his . He will be discharged home today in a stable condition. Physical Exam Chest: OTHER: Right thoracotomy incision is healing well. Chest wall is stable. Drain sites well approximated. Resp: COMMON NORMALS: clear to auscultation bilaterally (Markedly improved breath sounds in the right lower lobe) AUSCULTATION: clear to auscultation bilaterally (Markedly improved breath sounds in the right lower lobe) Cardio: COMMON NORMALS: regular rate, regular rhythm, S1 normal heart sound present, No murmurs present (Cardio) and No rub (Cardio) RATE: regular rate RHYTHM: regular rhythm HEART SOUNDS: S1 normal heart sound present GI: COMMON NORMALS: Normal to inspection, nondistended, normoactive bowel sounds present Extremity: COMMON NORMALS: no clubbing, cyanosis or edema Urinary Catheter Management: Cross: Cath Placed During This Visit: yes Reason for Continuing Indwelling Catheter: Accurate Measurement of Urinary Output in Critically Ill Patients Urinary Catheter Date of Insertion: 08/20/21 Urinary Catheter Time of Insertion: 14:15 Discharge Data Studies Completed and Pending Completed Studies During Hospitalization Category Date Time Status CTA chest [CT angio chest PE protcl [id number]] Routine Cat Scan 08/23/21 03:46 Completed CXRP [XR chest 1V portable [id number]] Routine Exams 08/24/21 06:49 Completed XR chest 1V portable [id number] Routine Exams 08/21/21 06:00 Completed XR chest 1V portable [id number] Routine Exams 08/22/21 06:00 Completed XR chest 1V portable [id number] Routine Exams 08/23/21 06:00 Completed XR chest 1V portable [id number] Routine Exams 08/25/21 06:00 Completed XR chest 1V portable [id number] Routine Exams 08/27/21 06:00 Completed XR chest 1V portable [id number] Stat Exams 08/21/21 21:46 Completed XR chest 1V portable [id number] Stat Exams 08/24/21 16:27 Completed Pathology: Surgical [PTH] Routine Pth 08/20/21 20:11 [place] [id number] Routine Ultrasound 08/23/21 09:38 Completed CV. echo complete* [id number] Urgent Ultrasound 08/23/21 08:13 Completed Pending at discharge Category Date Time Status BMP [Basic Metabolic Panel] AM LABS Lab 08/29/21 04:00 Ordered BMP [Basic Metabolic Panel] AM LABS Lab 08/30/21 04:00 Ordered CBC Auto Diff [Complete Blood Count w/Auto] AM LABS Lab 08/29/21 04:00 Ordered CBC Auto Diff [Complete Blood Count w/Auto] AM LABS Lab 08/30/21 04:00 Ordered Sputum Culture and Gram Stain Routine Lab 08/23/21 09:16 Uncollected Sputum Culture and Gram Stain Stat Lab 08/24/21 10:10 Uncollected Radiology Impressions Chest CTA 08/23/21 03:46 IMPRESSION: 1. No pulmonary emboli identified. 2. Postsurgical changes of right upper and middle lobectomies. There is a small right hydropneumothorax. 3. There is evidence of aspiration or pneumonia in the right lower lobe and lingula. Chest X-Ray 08/27/21 06:00 IMPRESSION: Improving abnormal postoperative chest as above. Laboratory Results WBC 7.1 10^3/uL (4.0-10.0) 08/28/21 04:30 RBC 3.75 10^6/uL (4.1-5.3) L 08/28/21 04:30 Hgb 12.3 g/dL (11.7-16.6) 08/28/21 04:30 Hct 37.2 % (42.0-52.0) L 08/28/21 04:30 MCV 99.2 fl (80-94) H 08/28/21 04:30 MCH 32.8 pg (28.0-34.0) 08/28/21 04:30 MCHC 33.1 g/dL (30.0-36.0) 08/28/21 04:30 RDW 14.0 % (12.1-15.1) 08/28/21 04:30 Plt Count 208 10^3/cmm (130-400) 08/28/21 04:30 MPV 9.8 fL (7.4-10.4) 08/28/21 04:30 Neut % (Auto) 69.4 % 08/28/21 04:30 Lymph % (Auto) 12.1 % 08/28/21 04:30 [place] % (Auto) 11.3 % 08/28/21 04:30 Eos % (Auto) 5.5 % 08/28/21 04:30 Baso % (Auto) 0.3 % 08/28/21 04:30 Neut # (Auto) 4.94 10^3/uL (1.8-7.7) 08/28/21 04:30 Lymph # (Auto) 0.9 10^3/uL (0.8-4.8) 08/28/21 04:30 [place] # (Auto) 0.8 10^3/uL (0.2-0.9) 08/28/21 04:30 Eos # (Auto) 0.4 10^3/uL (0.0-0.8) 08/28/21 04:30 Baso # (Auto) 0.0 10^3/uL (0.0-0.1) 08/28/21 04:30 Nucleated RBC % (auto) 0 % 08/28/21 04:30 Nucleated RBCs # 0.0 /100WBC 08/28/21 04:30 PT 13.10 SECONDS (12.1-14.9) 08/14/21 13:41 INR 0.96 (0.8-1.2) 08/14/21 13:41 APTT 61.4 SECONDS (23.9-36.7) H 08/26/21 07:38 D-Dimer 1.47 ug/mIFEU (0-0.59) H 08/23/21 08:33 Sodium 132 mmol/L (136-145) L 08/28/21 04:30 Potassium 3.7 mmol/L (3.5-5.1) 08/28/21 04:30 Chloride 100 mmol/L (98-107) 08/28/21 04:30 Carbon Dioxide 22 mmol/L (22-29) 08/28/21 04:30 Anion Gap 13.7 (5-19) 08/28/21 04:30 BUN 11 mg/dL (8-23) 08/28/21 04:30 Creatinine 0.5 mg/dL (0.7-1.2) L 08/28/21 04:30 GFR Calculation 164.4 mL/min (90-130) H 08/28/21 04:30 Glucose 112 mg/dL (65-115) 08/28/21 04:30 POC Glucose 95 mg/dL (70-110) 08/24/21 12:01 Estimat Average Glucose 97 08/25/21 05:40 Hemoglobin A1c 5.0 % (4.0-6.0) 08/25/21 05:40 Calculated Osmolality 274 mOsm/kg (285-295) L 08/28/21 04:30 Calcium 8.8 mg/dL (8.5-10.5) 08/28/21 04:30 Magnesium 2.3 mg/dL (1.7-2.3) 08/23/21 04:09 Iron 30 ug/dL (59-158) L 08/24/21 08:48 TIBC 204 mcg/dl 08/24/21 08:48 % Saturation 14.7 % (20-50) L 08/24/21 08:48 Unsat Iron Binding 174 ug/dL (112-347) 08/24/21 08:48 Total Bilirubin 0.5 mg/dL (0.15-1.2) 08/26/21 01:40 AST 44 U/L (0-40) H 08/26/21 01:40 ALT 41 U/L (0-41) 08/26/21 01:40 Alkaline Phosphatase 82 IU/L (40-130) 08/26/21 01:40 Total Protein 5.3 g/dL (6.6-8.7) L 08/26/21 01:40 Albumin 2.9 g/dL (3.5-5.2) L 08/26/21 01:40 Globulin 2.4 g/dL (1.3-4.6) 08/26/21 01:40 Triglycerides 68 mg/dL (0-150) 08/25/21 05:40 Cholesterol 111 mg/dL (0-200) 08/25/21 05:40 LDL Cholesterol, Calc 58 mg/dL (50-129) 08/25/21 05:40 Total VLDL Cholesterol 14 mg/dL (0-30) 08/25/21 05:40 HDL Cholesterol 39 mg/dL (60-100) L 08/25/21 05:40 Cholesterol/HDL Ratio 2.85 mg/dL (1.0-5.00) 08/25/21 05:40 Procalcitonin 0.19 ng/mL (0-0.5) 08/24/21 08:48 TSH 1.34 uIU/mL (0.27-4.20) 08/23/21 04:09 Urine Color Yellow (Yellow) 08/24/21 14:45 Urine Appearance Clear (CLEAR) 08/24/21 14:45 Urine pH 7 (5-7) 08/24/21 14:45 Ur Specific [place] 1.005 (1.005-1.030) 08/24/21 14:45 Urine Protein Neg (Negative) 08/24/21 14:45 Urine Glucose (UA) 1+ (Normal) H 08/24/21 14:45 Urine Ketones Negative (Negative) 08/24/21 14:45 Urine Blood 3+ (Negative) H 08/24/21 14:45 Urine Nitrate Negative (Negative) 08/24/21 14:45 Urine Bilirubin Neg (Negative) 08/24/21 14:45 Urine Urobilinogen Norm mg/dL (Negative) 08/24/21 14:45 Ur Leukocyte Esterase Trace (Negative) H 08/24/21 14:45 Urine RBC 25-40 /hpf (0-2) H 08/24/21 14:45 Urine WBC 0-4 /hpf (0-5) H 08/24/21 14:45 Ur Squamous Epith Cells 0-4 /hpf (0-5) H 08/24/21 14:45 Amorphous Sediment Not Reportable 08/24/21 14:45 Urine Bacteria Trace /hpf (NONE) 08/24/21 14:45 Blood Type O Positive 08/14/21 13:41 Rho(D) Type Positive 08/14/21 13:41 Antibody Screen Negative 08/14/21 13:41 Crossmatch See Detail 08/14/21 13:41 Procedures Performed Right upper and middle lobectomies on August 20, 2021 Vitals Last Vital Signs Temp 97.8 F 08/28/21 11:10 Pulse 73 08/28/21 11:10 Resp 17 08/28/21 11:10 BP 104/55 08/28/21 11:10 Pulse Ox 96 08/28/21 11:10 Discharge Plan Discharge Patient Disposition: Home Health Service Condition: Stable Prescriptions: New amoxicillin-pot clavulanate 875-125 mg Tablet 1 tab PO BID 7 Days Qty: 14 0RF Eliquis 5 mg Tablet 5 mg PO BID@0900,2100 30 Days Qty: 60 3RF amiodarone 200 mg tablet 200 mg PO BID Qty: 60 3RF Rx Instructions: 200 mg PO BID For next 14 days and thereafter 200 mg PO Daily hydrocodone-acetaminophen 5-325 mg tablet 1 tab PO Q8H PRN (Reason: pain) Qty: 30 0RF Continued aspirin [Adult Low Dose Aspirin] 81 mg tablet,delayed release (DR/EC) 81 mg PO DAILY 0RF fluoxetine 40 mg capsule 40 mg PO DAILY 0RF meloxicam 15 mg tablet 15 mg PO DAILY PRN (Reason: muscle pain) 0RF albuterol sulfate [ProAir HFA] 90 mcg/actuation HFA aerosol inhaler 2 puff INHALATION Q4H PRN (Reason: Shortness Of Breath) 0RF saw palmetto 500 mg capsule 500 mg PO DAILY 0RF Rx Instructions: give with food (meal/snack) sildenafil 50 mg tablet 50 mg PO .3x weekly PRN (Reason: impotence) 0RF Rx Instructions: administer 30 minutes to 4 hours before activity simvastatin 40 mg tablet 40 mg PO DAILY 0RF Trelegy Ellipta 100-62.5-25 mcg blister with device 1 inh INHALATION DAILY 0RF Discharge Orders: Discharge Order (Routine); Ordered 08/28/21 Ordered By: Gaston Mccartney Other Ambulatory Orders: DME: Oxygen (Order) Location: None Selected Ordered By: Gaston Mccartney DME: Walker (Order) Location: None Selected Ordered By: Michael Nuno Referrals: [facility] [Outside] Gaston Mccartney MD [Physician] - 2 weeks Kelly Mcguire FNP-C [Primary Care Provider] - 1 week Discharge Diet: Regular Discharge Activity: Increase activity as tolerated Patient Instructions: Opioid Safety Activity Restrictions/Additional Instructions: No swimming or tub baths x2 weeks Report any redness, drainage, increased welling, increased pain from chest wall or generalized fever May shower with no dressings over incision. Use incentive spirometer frequently Discharge Attestations Time Spent in Discharge Care*: less than 30 min Specific Discharge Activities: educating patient, educating and/or supporting family/caregiver, discussing with pcp/other providers, discussing with disease case manager rn/social workers/dc planners, documenting/other paperwork and evaluating patient/reviewing data Status at Discharge: Cognitive status at discharge: cognitively intact , Behavioral status at discharge: cooperative , Functional status at discharge: uses cane/walker , Overall status at discharge: patient is progressing back to baseline Quality Metrics Clinical Quality Measures [ No reported AMI, CVA or VTE this stay] Coding Level of Care Code Acute Chg FW DC note Diagnoses Atrial fibrillation with rapid ventricular response I48.91 Lung mass R91.8 Pneumonia J18.9 Confusion R41.0 Hyponatremia E87.1 COPD (chronic obstructive pulmonary disease) J44.9
[2021-08-28] MEDS: HYDROcodone-acetaminophen 5-325 mg Tablet 1 TAB PO (15:46)
--- NOTE | 2021-08-28 15:59 | PC.NURSE ---
DISCHARGE PAPERWORK GONE OVER WITH PT. ALL QUESTIONS ANSWERED. INSTRUCTIONS, APPOINTMENTS, AND MEDICATIONS GONE OVER WITH PT AND HIS . IV HAS BEEN REMOVED. PT TOLERATED WELL. CATHETER TIP INTACT. PT SAFELY WHEELED OUT BY THIS NURSE.
== END 2021-08-28 16:02 | disposition home health service (06) | DRG 163 ==
LOC: ICU 19:35 → MEDSURG 08-27 14:06
PROVIDERS: Internal Medicine; Internal Medicine Pulmonary Disease; Student in an Organized Health Care Education/Training Program; Admitting Provider Thoracic Surgery (Cardiothoracic Vascular Surgery); PCP Nurse Practitioner Family; Visit Provider Thoracic Surgery (Cardiothoracic Vascular Surgery)
PROC: 0BTD0ZZ Resection of Right Middle Lung Lobe, Open Approach (ICD-10-PCS; CPT 32480; principal; 2021-08-20 09:20)
DX: R91.8 Other nonspecific abnormal finding of lung field (principal); J69.0 Pneumonitis due to inhalation of food and vomit; J95.812 Postprocedural air leak; F05 Delirium due to known physiological condition; E87.1 Hypo-osmolality and hyponatremia; Z79.51 Long term (current) use of inhaled steroids; Z79.82 Long term (current) use of aspirin; J43.9 Emphysema, unspecified; K21.9 Gastro-esophageal reflux disease without esophagitis; E78.5 Hyperlipidemia, unspecified; F17.210 Nicotine dependence, cigarettes, uncomplicated; I48.91 Unspecified atrial fibrillation; R59.0 Localized enlarged lymph nodes; F41.9 Anxiety disorder, unspecified
CPT/HCPCS: 01996; 36415; 36416; 51702; 62324; 71045; 71275; 80048; 80053; 80061; 81001; 82962; 83036; 83540; 83550; 83735; 84145; 84443; 85025; 85049; 85378; 85610; 85730; 86403; 86850; 86900; 86920; 87086; 87449; 87641; 88309; 88313; 88342; 92523; 92526; 92610; 93005; 93306; 93970; 94640; 94660; 94664; 97110; 97116; 97161; 97530; J0282; J0690; J1100; J1170; J1644; J1885; J1940; J2250; J2270; J2405; J2543; J2704; J2710; J2795; J3010; J3490; J3535; J7030; J7060; J7626; Q9967

== ENCOUNTER → 2021-09-05 10:19 | Outpatient (BNVA) | payer MEDICARE, OTHER, SELFPAY | PROVIDERS: PCP Registered Nurse; Visit Provider Thoracic Surgery (Cardiothoracic Vascular Surgery) | DX: Z98.890 Other specified postprocedural states (principal) | CPT/HCPCS: 99024 ==

== ENCOUNTER 2021-09-10 15:16 | Inpatient (IN) | payer MEDICARE, OTHER, SELFPAY ==
[2021-09-10] VITALS (7 sets, daily range): BP systolic 104–122; BP diastolic 68–71; PULSE 68–85; RESP 16–18; TEMP 36.8–37.1; O2SAT 92–98; BMI 21.7
--- NOTE | 2021-09-10 15:36 | CT_ITS ---
WS: [id number] CT CHEST WITHOUT INTRAVENOUS CONTRAST HISTORY: R posterior lung bulge/possible hernia, history RIGHT upper and middle lobectomies. TECHNIQUE: Contiguous 5 mm axial imaging performed on the thorax. Coronal and sagittal reformats are submitted. All CT scans at [facility] use at least one of these dose optimization techniques: automated exposure control; mA and/or kV adjustment per patient size (includes targeted exams where dose is matched to clinical indication); or iterative reconstruction. CONTRAST: None DLP: 456.19 mGy.cm COMPARISON: 08/23/2021. Lungs and central airway: Progressed since the prior examination is a moderate-sized pneumothorax. Th oracostomy tube was present on the prior CT of 08/23/2021 but has been removed. Loculated fluid and air pockets at the RIGHT lung base consistent with a hydropneumothorax. Some of these air collections ma y be localized and developing cavitation. Less consolidation as compared to the prior examination of the hilum. Partially calcified lobulated mass LEFT upper lobe is reidentified without change. Air fro m the pneumothorax extends lateral to the RIGHT chest wall. This is the palpable abnormality. This ma y be along the postsurgical tract. This does not appear to be the same tract of the chest tube that w as previously inserted. Pleura: Small pleural effusion on the RIGHT, moderate hydropneumothorax. Heart and pericardium: Very small pericardial effusion. Mediastinum and [place]: No adenopathy. Vessels: Mild atherosclerosis aorta. Normal size pulmonary artery. Upper abdomen: No acute abnormality. Osseous structures: No interval change. CT/CT chest con [id number] IMPRESSION: 1. Status post RIGHT upper and RIGHT middle lobectomies. 2. Moderate size RIGHT hydropneumothorax. Progressed since 08/23/2021. The RIGHT thoracostomy tube has been removed since the prior study. 3. Bulging along the RIGHT lateral chest wall corresponds to air extending ext ernal from the thorax and contiguous with the pneumothorax.
--- NOTE | 2021-09-10 15:48 | W.ED.GENADLT ---
HPI - General Adult General: Chief complaint: General Medical Stated complaint: surgery on lungs 08/20, having complications Time Seen by Provider: 09/10/21 15:30 History of Present Illness: 70-year-old male who underwent right upper lobectomy 08/20/[address] Mccartney for spiculated lesion presenting to the emergency room for concerns of right posterior upper back bulge at the history site. Patient was walking when he suddenly felt a pop and noticed a bulge on his back. Patient has any shortness of breath, fever/chills, cough, runny nose sore throat. No other focal complaints. Since patient's home health could not contact Dr. Monsalve, patient presents the emergency room for further evaluation. Onset:1 hr ago Duration:1 hr Location:home Severity:moderate Associated symptoms: Deny chest pain, dyspnea, nausea, rash, palpitations or vomiting Review of Systems Const: Denies: fever(s) or chills Eyes: Denies: change in vision ENMT: Denies: mouth pain Card: Denies: chest pain or palpitations Resp: Denies: dyspnea or non-productive cough GI: Denies: abdominal pain, nausea, vomiting or diarrhea : Denies: dysuria Musc: Reports: other (+posterior back bulge); Denies: extremity pain Skin/Breast: Denies: rash or new lesions Neuro: Denies: weakness in extremities Psych: Reports: other (Normal mood) Gurpreet/Lymph: Denies: easy bruising PFS ED PFSH: Medical History Aspiration pneumonia Atrial fibrillation with rapid ventricular response Confusion COPD (chronic obstructive pulmonary disease) GERD (gastroesophageal reflux disease) Hyperlipidemia Hyponatremia Lung mass Pneumonia Right upper lobe pulmonary nodule Surgical History History of eye surgery History of facial surgery History of laparoscopic appendectomy Status post lobectomy of lung Family History Denies family history of Anesthesia complication Bleeding disorder Social History Smoking and tobacco status: former smoker Quit status (tobacco): has quit using tobacco Year quit tobacco: 2021 Second hand smoke exposure: No Alcohol intake: never Adopted: No Caregiver/support person: Yes Lives independently: Yes Household members: spouse Housing: House Marital status: service: Yes status: Retired branch: [employer] Current occupational status: retired Pets and animals: No History of recent travel: No Leisure activites: exercise, hunting and fishing Sexually active: Yes Current gender identity: Male Sylvia/Cheondoism: Holiness Physical Exam Const: COMMON NORMALS: alert HENMT: COMMON NORMALS: atraumatic HEAD & SCALP: atraumatic MOUTH: moist mucous membranes not abnormal Eye: COMMON NORMALS: EOMs intact bilaterally and conjunctivae normal CONJUNCTIVA: Yes conjunctivae normal Neck/C-Spine: COMMON NORMALS: full ROM and supple Resp: COMMON NORMALS: normal respiratory effort and clear to auscultation bilaterally AUSCULTATION: clear to auscultation bilaterally Cardio: COMMON NORMALS: regular rate RATE: regular rate GI: COMMON NORMALS: Soft to palpation and non-tender PALPATION: Yes Soft to palpation Back/Pelvis: OTHER: + Posterior right thoracic upper bulge secondary to expiratory hold, signs of dehiscence of surgical wound Extremity: COMMON NORMALS: full ROM Neuro: SENSORIUM/ORIENTATION: Yes alert MOTOR EXAM: No Abnormal motor strength present and Other motor observations present (no focal motor deficits) Psych: COMMON NORMALS: speech normal SPEECH: Yes normal speech MOOD & AFFECT: Yes euthymic mood Course Vital Signs: Vital signs: Vital Signs Temperature 98.8 F 09/10/21 15:26 Pulse Rate 82 09/10/21 17:00 Respiratory Rate 18 09/10/21 15:26 Blood Pressure 119/68 09/10/21 17:00 Pulse Oximetry 96 09/10/21 17:00 MDM - General Adult Medical Decision Making 70-year-old male status post lobectomy presenting to emergency room with new onset of bulge in the right upper back x1 hour. Bulge appears to be present with expiratory hold. No sounds present bilaterally. Patient is hemodynamically stable, no changes in pulse ox. CT showed hydropneumothorax with extension through the intercostal muscle. Patient is hemodynamically stable, satting well. Case was discussed with Dr. Angulo who does not recommend putting a chest tube at this time given the complicated nature of this hydropneumothorax and possible connection with prior aspiration PNA. I notified Dr. Mccartney who informs me that he will see the patient. Disposition: admission Lab Data : 09/10/21 17:50 09/10/21 17:[address] 09/10/21 15:36 IMPRESSION: 1. Status post RIGHT upper and RIGHT middle lobectomies. 2. Moderate size RIGHT hydropneumothorax. Progressed since 08/23/2021. The RIGHT thoracostomy tube has been removed since the prior study. 3. Bulging along the RIGHT lateral chest wall corresponds to air extending external from the thorax and contiguous with the pneumothorax. Imaging Data Other Imaging: Radiologist's impression: [facility] [address] [place] [address] CT Scan Report Signed Patient: Giancarlo Ibarra Jr Unit #: [id number] : [id number] Age/Sex: 70 / M ADM Date: 09/10/21 Loc: ER Room/Bed: Attending Dr: Ordering Provider/Ordering MD: Iris Jovel MD Date of Service: 09/10/21 Procedure(s): CT chest [facility] [id number] Accession Number(s): [id number] Report Number: [id number] WS: [id number] CT CHEST WITHOUT INTRAVENOUS CONTRAST HISTORY: R posterior lung bulge/possible hernia, history RIGHT upper and middle lobectomies. TECHNIQUE: Contiguous 5 mm axial imaging performed on the thorax. Coronal and sagittal reformats are submitted.? All CT scans at [facility] use at least one of these dose optimization techniques: automated exposure control; mA and/or kV adjustment per patient size (includes targeted exams where dose is matched to clinical indication); or iterative reconstruction. CONTRAST: None DLP: 456.19 mGy.cm COMPARISON: 08/23/2021. Lungs and central airway: Progressed since the prior examination is a moderate-sized pneumothorax. Thoracostomy tube was present on the prior CT of 08/23/2021 but has been removed. Loculated fluid and air pockets at the RIGHT lung base consistent with a hydropneumothorax. Some of these air collections may be localized and developing cavitation. Less consolidation as compared to the prior examination of the hilum. Partially calcified lobulated mass LEFT upper lobe is reidentified without change. Air from the pneumothorax extends lateral to the RIGHT chest wall. This is the palpable abnormality. This may be along the postsurgical tract. This does not appear to be the same tract of the chest tube that was previously inserted. Pleura: Small pleural effusion on the RIGHT, moderate hydropneumothorax. Heart and pericardium: Very small pericardial effusion. Mediastinum and [place]: No adenopathy. Vessels: Mild atherosclerosis aorta. Normal size pulmonary artery. Upper abdomen: No acute abnormality. Osseous structures: No interval change. CT/CT chest wo con [id number] IMPRESSION: ? 1.? Status post RIGHT upper and RIGHT middle lobectomies. 2.? Moderate size RIGHT hydropneumothorax. Progressed since 08/23/2021. The RIGHT thoracostomy tube has been removed since the prior study. 3.? Bulging along the RIGHT lateral chest wall corresponds to air extending external from the thorax and contiguous with the pneumothorax. ? Dictated By: Ingrid Short DO Signed By: Ingrid Short DO Signed Date/Time: 09/10/21 1608 DD/ 1557 Discharge Plan Discharge Patient Disposition: Admitted As Inpatient Admit Provider: Faizan Gil Clinical Impression: Hydropneumothorax Condition: Stable Coding Level of Care Code ED Extension Agent for Chg Fwd Exam Comprehensive
--- NOTE | 2021-09-10 16:13 | PC.PHAR ---
PT STATES DR JOAQUIN DISCONTINUED AMIODARONE AND ELIQUIS ON 09/10/21.
--- NOTE | 2021-09-10 17:33 | PM.HP ---
Providers/Chief Complaint Admitting Physician: Bib Primary Care Provider: CIRILO Rehman Chief Complaint: surgery on lungs 08/20, having complications History of Present Illness Giancarlo Ibarra Jr is a 70 year old male who is status post right upper and middle lobectomy on August 20 due to a 2 sonometer stellate lesion of the right upper lobe which was new and was PET positive. He had a long history of prior tobacco use. 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 The area in the right upper lobe was new both on stellate configuration and head scan activity. Postoperatively, he convalesced in the ICU initially and then separately on the [place] where we received pulmonary consultation to assist with postoperative care. His pathology specimen showed evidence of a fungal components and was referred for tertiary review with ultimately no malignancy being identified. He was subsequently discharged on August 28 on 4 L nasal cannula which he was using intermittently. He had been seen once in the outpatient clinic by me on September 05. He presented back today complaining of some swelling of the right side after a coughing episode. He was found to have a isolated anterior pneumothorax with some air in the subcutaneous region as well as fluid over the diaphragm Consistent with hydropneumothorax which is felt to have increased since discharge I reviewed by radiology. The right lower lobe lung parenchyma itself looks good without obvious infiltrate. The study was reviewed with Dr. Coronel and he is concerned of potential infectious etiology for this increased hydropneumothorax given that Mr. Ibarra was treated for aspiration pneumonia in the early postoperative period. With his somewhat confusing clinical picture a prior aspiration pneumonia, and questionable fungal elements on his pathologic specimen, Dr. Angulo feels that we should treat for an infectious etiology and seek interventional radiology assistance with pigtail catheter placement this fluid collection in the lower right hemithorax to allow for analysis for potential infectious origin. He developed exanthem after discharge which we felt was initially related to amoxicillin though it appears that this may have more been related to amiodarone which was utilized empirically due to a brief episode of atrial fibrillation in the early postop period. He is remained in sinus rhythm since discharge. Therefore, we discontinued amiodarone and Eliquis. At presentation, we noted he had stable vital signs with O2 saturation of 96% on room air. He remains afebrile. He is not tachycardic. CBC and chemistry profile is pending. Review of Systems Const: Denies: fever(s), chills or night sweats Eyes: Denies: change in vision ENMT: Denies: throat pain Card: Denies: chest pain, palpitations or irregular heart rhythm Resp: Reports: dyspnea (With exertion) and non-productive cough; Denies: wheezing or pain on inspiration GI: Denies: abdominal pain, nausea or vomiting Musc: Reports: back pain; Denies: neck pain Neuro: Denies: headache(s) or numbness in extremities Psych: Denies: anxiety or depression Medications/Allergies Home Medications Medication Instructions Recorded Confirmed Last Taken Type albuterol sulfate 90 mcg/actuation 2 puff INHALATION Q4H PRN gm 12/23/19 09/10/21 08/18/21 History aerosol inhaler (ProAir HFA) fluoxetine 40 mg capsule 40 mg PO DAILY 12/23/19 09/10/21 09/10/21 History fluticasone fur. 100 mcg-umeclid 1 inh INHALATION DAILY 12/23/19 09/10/21 09/10/21 History 62.5 mcg-vilant 25 mcg inhalat.powder (Trelegy Ellipta) meloxicam 15 mg tablet 15 mg PO DAILY PRN 12/23/19 09/10/21 08/13/21 History saw palmetto 500 mg capsule 500 mg PO DAILY cap 12/23/19 09/10/21 09/10/21 History sildenafil 50 mg tablet 50 mg PO .3x weekly PRN tab 12/23/19 09/10/21 07/22/21 History simvastatin 40 mg tablet 40 mg PO DAILY 12/23/19 09/10/21 09/10/21 History hydrocodone 5 mg-acetaminophen 325 1 tab PO Q8H PRN #30 tab 08/28/21 09/10/21 09/10/21 Rx mg tablet cholecalciferol (vitamin D3) 25 25 mcg PO DAILY 09/10/21 09/10/21 09/10/21 History mcg (1,000 unit) capsule (Vitamin D3) omeprazole 40 mg capsule,delayed 40 mg PO DAILY 09/10/21 09/10/21 09/10/21 History release Allergies Allergy/AdvReac Type Severity Reaction Status Date / Time amoxicillin [From Augmentin] Allergy Intermediate ALGY-Rash Verified 09/10/21 16:18 clavulanic acid Allergy Intermediate ALGY-Rash Verified 09/10/21 16:18 [From Augmentin] amiodarone Allergy Unknown Verified 09/10/21 16:19 apixaban [From Eliquis] Allergy Unknown Verified 09/10/21 16:19 diphenhydramine Allergy ADR-Anxiety Verified 09/10/21 16:18 [From Benadryl] PFSH Acute PFSH: Medical History Aspiration pneumonia Atrial fibrillation with rapid ventricular response Confusion COPD (chronic obstructive pulmonary disease) GERD (gastroesophageal reflux disease) Hyperlipidemia Hyponatremia Lung mass Pneumonia Right upper lobe pulmonary nodule Surgical History History of eye surgery History of facial surgery History of laparoscopic appendectomy Status post lobectomy of lung Family History Denies family history of Anesthesia complication Bleeding disorder Social History Smoking and tobacco status: former smoker Quit status (tobacco): has quit using tobacco Year quit tobacco: 2021 Second hand smoke exposure: No Alcohol intake: never Adopted: No Caregiver/support person: Yes Lives independently: Yes Household members: spouse Housing: House Marital status: service: Yes status: Retired branch: [employer] Current occupational status: retired Pets and animals: No History of recent travel: No Leisure activites: exercise, hunting and fishing Sexually active: Yes Current gender identity: Male Sylvia/Pentecostal: Religion Vitals/I&O/Wt Last Vital Signs Temp 98.8 F 09/10/21 15:26 Pulse 82 09/10/21 17:00 Resp 18 09/10/21 15:26 BP 119/68 09/10/21 17:00 Pulse Ox 96 09/10/21 17:00 Weight last 48 hrs Weight 160 lb Physical Exam Const: COMMON NORMALS: no acute distress and patient oriented x3 HENMT: COMMON NORMALS: normocephalic, atraumatic and hearing grossly normal bilaterally Neck/C-Spine: COMMON NORMALS: no lymphadenopathy and supple Chest: OTHER: Thoracotomy incision healed. Drain sites well approximated. Slight crepitance noted the right lateral posterior wall. No overlying erythema or induration is noted. Resp: COMMON NORMALS: normal respiratory effort and No use of accessory muscles OTHER: Decreased breath sounds in the right base laterally and posteriorly. Cardio: COMMON NORMALS: regular rate, regular rhythm, S1 normal heart sound present and No murmurs present (Cardio) GI: COMMON NORMALS: Normal to inspection, nondistended, normoactive bowel sounds present and Soft to palpation Extremity: COMMON NORMALS: no clubbing, cyanosis or edema Neuro: COMMON NORMALS: patient oriented x3, moves all extremities, no focal motor deficits and no sensory deficits noted Data CT Chest: Radiologist's impression: 1.? Status post RIGHT upper and RIGHT middle lobectomies. 2.? Moderate size RIGHT hydropneumothorax. Progressed since 08/23/2021. The RIGHT thoracostomy tube has been removed since the prior study. 3.? Bulging along the RIGHT lateral chest wall corresponds to air extending external from the thorax and contiguous with the pneumothorax. ? A&P Assessment and plan (1) Hydropneumothorax: New hydropneumothorax status post right upper/middle lobectomy August 20, 2021. CT scan has been reviewed and discussed with Dr. Angulo and Dr. Jovel. Case has been discussed with Dr. Angulo. Plan: Given the new onset of this hydropneumothorax relative to his latest postoperative imaging studies, we will initiate broad-spectrum antibiotics for possible infectious source. We will seek interventional radiology's assistance with pigtail catheter placement into this fluid collection inferiorly. I have reviewed the CT scan with Mr. Ibarra''s and discussed the findings directly with him. He was initially reluctant for admission though after conversation with family, he has now agreed. We will make n.p.o. after midnight for discussions with pulmonary medicine and interventional radiology marked to consider pigtail catheter placement to allow for sampling and appropriate direction for antibiotic therapy. Continue supportive measures and pulmonary toilet. I will also seek the assistance of my hospitalist colleagues tomorrow for direction with medical management. Status: Acute Attestations Medical Necessity Statement*: Enlarging hydropneumothorax status post lobectomy. Coding Level of Care Code Acute Cook 3 [employer] for [facility] Diagnoses Hydropneumothorax J94.8
[2021-09-10 18:05] LABS: Basophils % 0.2 %; Eosinophils # 0.2 10^3/uL (0.0-0.8); Eosinophils % 2.4 %; Hematocrit 43.4 % (42.0-52.0); Hemoglobin 14.7 g/dL (11.7-16.6); Lymphocytes % 15.8 %; Mean Corpuscular HGB Conc 33.9 g/dL (30.0-36.0); Mean Corpuscular Hemoglobin 32.6 pg (28.0-34.0); Mean Corpuscular Volume 96.2 fl (80-94); Mean Platelet Volume 9.1 fL (7.4-10.4); Monocytes # 0.8 10^3/uL (0.2-0.9); Monocytes % 12.2 %; Neutrophils # 4.23 10^3/uL (1.8-7.7); Neutrophils % 68.7 %; Nucleated Red Blood Cells % 0 %; Platelet Count 299 10^3/cmm (130-400); Red Blood Count 4.51 10^6/uL (4.1-5.3); Red Cell Distribution Width 13.2 % (12.1-15.1); White Blood Count 6.2 10^3/uL (4.0-10.0)
[2021-09-10 18:19] LABS: Anion Gap 14.4 (5-19); Blood Urea Nitrogen 17 mg/dL (8-23); Calcium 9.2 mg/dL (8.5-10.5); Carbon Dioxide 27 mmol/L (22-29); Chloride 98 mmol/L (98-107); Glomerular Filtration Rate 133.2 mL/min (90-130); Glucose 89 mg/dL (65-115); Osmolality Calculated 281 mOsm/kg (285-295); Potassium 4.4 mmol/L (3.5-5.1); Sodium 135 mmol/L (136-145)
[2021-09-10] MEDS: lactated ringers 1,000 ML 100 ML IV (19:21)
[2021-09-10] MEDS: temazepam 15 mg Capsule PO (19:45)
[2021-09-10] MEDS: piperacillin-tazobactam 3.375 GM in sodium chloride 0.9% (plus) 50 ML IV (19:52)
[2021-09-10] MEDS: vancomycin 1,250 MG/250 ML PIGGYBACK 200 MG IV (20:54)
[2021-09-10 20:58] LABS: INR 1.16 (0.8-1.2)
[2021-09-10 20:59] LABS: Partial Thromboplastin Time 35.9 SECONDS (23.9-36.7)
[2021-09-11] VITALS (13 sets, daily range): BP systolic 101–129; BP diastolic 61–76; PULSE 65–84; RESP 15–24; TEMP 36.6–36.9; O2SAT 94–98
[2021-09-11 01:51] LABS: Basophils % 0.2 %; Eosinophils # 0.2 10^3/uL (0.0-0.8); Eosinophils % 3.5 %; Hematocrit 39.5 % (42.0-52.0); Hemoglobin 13.2 g/dL (11.7-16.6); Lymphocytes # 1.1 10^3/uL (0.8-4.8); Lymphocytes % 19.5 %; Mean Corpuscular HGB Conc 33.4 g/dL (30.0-36.0); Mean Corpuscular Hemoglobin 32.6 pg (28.0-34.0); Mean Corpuscular Volume 97.5 fl (80-94); Mean Platelet Volume 9.4 fL (7.4-10.4); Monocytes # 0.8 10^3/uL (0.2-0.9); Monocytes % 13.4 %; Neutrophils # 3.61 10^3/uL (1.8-7.7); Neutrophils % 62.7 %; Nucleated Red Blood Cells % 0 %; Platelet Count 284 10^3/cmm (130-400); Red Blood Count 4.05 10^6/uL (4.1-5.3); Red Cell Distribution Width 13.2 % (12.1-15.1); White Blood Count 5.8 10^3/uL (4.0-10.0)
[2021-09-11 02:14] LABS: Alanine Aminotransferase 29 U/L (0-41); Albumin Level 3.5 g/dL (3.5-5.2); Alkaline Phosphatase 158 IU/L (40-130); Anion Gap 12.7 (5-19); Aspartate Amino Transferase 23 U/L (0-40); Blood Urea Nitrogen 17 mg/dL (8-23); Calcium 8.8 mg/dL (8.5-10.5); Carbon Dioxide 27 mmol/L (22-29); Chloride 102 mmol/L (98-107); Globulin 2.8 g/dL (1.3-4.6); Glomerular Filtration Rate 95.6 mL/min (90-130); Glucose 106 mg/dL (65-115); Osmolality Calculated 288 mOsm/kg (285-295); Potassium 3.7 mmol/L (3.5-5.1); Sodium 138 mmol/L (136-145); Total Bilirubin 0.4 mg/dL (0.15-1.2); Total Protein 6.3 g/dL (6.6-8.7)
[2021-09-11] MEDS: piperacillin-tazobactam 3.375 GM in sodium chloride 0.9% (plus) 50 ML IV ×3 (03:50→19:48)
[2021-09-11] MEDS: lactated ringers 1,000 ML 100 ML IV (03:51)
--- NOTE | 2021-09-11 05:47 | PM.PN ---
Subjective Subjective: Mr. Ibarra stated he slept well last night. Vital signs have been stable. No arrhythmias reported. No episodes of desaturation. Respiratory status appears to be unchanged. SCDs are in place. Laboratory data upon admission was reviewed and reveals no leukocytosis. H&H are normal. Exam this morning is unchanged. Vitals/I&O/Wt Last Vital Signs Temp 97.8 F 09/11/21 00:00 Pulse 70 09/11/21 00:00 Resp 16 09/11/21 00:00 BP 118/71 09/11/21 00:00 Pulse Ox 97 09/11/21 00:00 09/10/21 09/10/21 09/11/21 14:59 22:59 06:59 Intake Total 250 / 250 900 / 1150 Output Total 500 / 500 625 / 1125 Balance -250 / -250 275 / 25 Weight last 48 hrs Weight 160 lb Physical Exam Resp: OTHER: Left side remains clear. Right upper middle hemothorax is clear. There is some decreased breath sounds in the left base laterally and posteriorly consistent with the known effusion. Chest wall remained stable. Cardio: COMMON NORMALS: regular rate, regular rhythm, S1 normal heart sound present and No murmurs present (Cardio) RATE: regular rate RHYTHM: regular rhythm HEART SOUNDS: S1 normal heart sound present GI: COMMON NORMALS: Normal to inspection, nondistended, normoactive bowel sounds present Data : 09/11/21 01:22 09/11/21 01:22 A&P Assessment and plan (1) Hydropneumothorax: Currently receiving Zosyn and vancomycin empirically Plan: I will confer again with my colleague, Dr. Angulo. We will the reaching out to interventional radiology about approach to consider pigtail catheter placement in this fluid collection to allow for appropriate sampling for assessment of a potential infectious etiology. This was again discussed with Mr. Ibarra. He will remain n.p.o. this morning as we proceed with arrangements. He has not received any anticoagulants. Status: Acute Attestations Medical Necessity Statement*: Right hydropneumothorax status post right lobectomy Coding Level of Care Code Acute Hospice Manager for [facility] [place] Diagnoses Hydropneumothorax J94.8
--- NOTE | 2021-09-11 06:13 | PC.NURSE ---
SHIFT SUMMARY Rested well tonight. Had requested a sleeping pill and received po Restoril at HS. Says it worked well. Has denied any pain or SOB. NPO after midnight for procedure today. Dr Mccartney in this am and is going to coordinate CT guided placement of pigtail drain today per radiologist and Dr Angulo. Pt continues to have bulging around incision from previous lobectomy done. Incision line well approximated and with some bruising. IV infusing at 100ml/hr rate and has received IV antibiotics as ordered. Voiding per urinal. SCD's to BLE.
[2021-09-11] MEDS: vancomycin 1,250 MG/250 ML PIGGYBACK 200 MG IV ×2 (10:05→21:53)
[2021-09-11] MEDS: pantoprazole DR 40 mg Tablet PO (10:17)
[2021-09-11] MEDS: fluoxetine 20 mg Capsule 40 MG PO (10:17)
--- NOTE | 2021-09-11 10:19 | PC.CHAP ---
Pastoral Care Encounter/Spiritual Assessment Type of Contact [] Declined cigarette filter inspector visit [] Patient/Family/Request visit [] Outpatient visit [] Follow-up visit [] Physician referral [] Code/Alert [x] Routine visit [] Staff referral [] Actively dying [x] Patient sleeping [] Family support [] [] Out of room [] Palliative care [] [] Receiving care in room [] Pre-surgical visit [] Trauma [] Long length of stay [] ICU visit [] Other: Relational/Emotional Strength [] Patient feels connected with others/family/visitors/staff [] Distress [] Loneliness/isolation [] Abandonment Spirituality of Patient [] Person of Sylvia [] Attends Rastafari of their Sylvia [x] Believes in Prayer [] Reads Bible or Taoism materials [] There are Spiritual issues to be addressed Radio Mechanic Interventions [x] Prayer [] Active listening [] Non-anxious presence [] Spiritual/emotional support [] Crisis/trauma care [] Spiritual counseling [] Bereavement support [] Provided bereavement packet [] Provided Bible/devotional materials [] Provided toy/stuffed animal, coloring book to patient or family member [] Provided Communion [] Anointing/[place] [] Salvation [x] Completed spiritual assessment [] Other: Impact on Illness or Injury [] Angry [] Fearful [] Anxious [] Often cries [] Exhaustion [] Unable to work [] Unable to attend jain [] Unable to walk/stand [] Unable to read [] Unable to drive [] Unable to eat/drink [] Unable to sleep [] Unable to be with family [] Patient intubated [] Other: Summary Time spent with patient
--- NOTE | 2021-09-11 11:51 | P.ANESASSM_ITS ---
Pre-Anesthetic Assessment Height/Weight: Height 1.83 m Weight 72.575 kg Temp Pulse Resp BP Pulse Ox 98.4 F 78 18 116/68 98 09/11/21 11:30 09/11/21 11:30 09/11/21 11:30 09/11/21 11:30 09/11/21 11:30 Preop Diagnosis: Right upper lobe lung mass/plan lobectomy Operation Date: 09/10/21 17:40 Proposed Procedures p Thoracic Vent(Not Applicable) - Gaston Mccartney MD Familial anesthetic complications: None Was Beta Lalo taken within 24 hours: N/A Was Clonidine taken within 24 hours: N/A Social Tobacco (Former smoker) and No alcohol Exam alert, oriented x 3 and regular rate & rhythm Right lower lung crackles Airway Submandibular: within normal limits Cervical ROM: within normal limits Mallampati: Class II Dentition: chipped Comments: Comments: Missing some teeth Pulmonary Chronic Obstructive Pulmonary Disease Hx of aspiration PCN S/P lobectomy 08/20/21 R. upper and middle lobes Hydropneumothorax CT 09/10/21 CT/CT chest wo con [id number] IMPRESSION: ? 1.? Status post RIGHT upper and RIGHT middle lobectomies. 2.? Moderate size RIGHT hydropneumothorax. Progressed since 08/23/2021. The RIGHT thoracostomy tube has been removed since the prior study. 3.? Bulging along the RIGHT lateral chest wall corresponds to air extending external from the thorax and contiguous with the pneumothorax. ? CV/HEM Atrial Fibrillation TTE 08/23/21 CONCLUSIONS ?Technically difficult study.? Only subcostal views were ?obtained.? ?Could not visualize the cardiac structures properly. ?The LV appears to be of normal size and ejection fraction. ?Segmental wall motion analysis is not possible. ?No significant pericardial effusion None reported Hepatic None reported GI Gastroesophageal Reflux Disease Ileus Metabolic None reported Musc/skel None reported Neuropsych None reported Anesthetic Plan ASA status: 3 Anesthesia: Anesthesia Evaluation, General and Regional (specify below) (Erector spinae blocks for post op pain control) Other: We discussed risk and benefits of general anesthesia including PONV, sore throat (sometimes severe), corneal abrasion, positioning and peripheral nerve injuries, life threatening allergic reaction, post operative ICU admission requiring prol onged intubation, stroke, heart attack, , and rare incidences of recall. Patient consents to proceed with general anesthesia. We discussed risk and benefits of nerve block for post op pain control including management of pain and titration of pain medications as signs/symptoms of nerve block wearing off begin to appear and/or prior bed. We discussed risk of failed nerve block, vascular injury or other vital structure injury, abscess/infection, LAST, and nerve injury. Patient took apixaban AM of 09/10/21 Surgeon requested epidural, not eligible d/t anticoagulation Plan NAYELY, 2 IV, arterial line, erector spinae block for post op pain control. Risk of > 500 ml blood loss (7ml/kg in children): Yes, adequate IV access and fluids planned Medications/Allergies Home Medications Medication Instructions Recorded Confirmed Last Taken Type albuterol sulfate 90 mcg/actuation 2 puff INHALATION Q4H PRN gm 12/23/19 09/10/21 08/18/21 History aerosol inhaler (ProAir HFA) fluoxetine 40 mg capsule 40 mg PO DAILY 12/23/19 09/10/21 09/10/21 History fluticasone fur. 100 mcg-umeclid 1 inh INHALATION DAILY 12/23/19 09/10/21 09/10/21 History 62.5 mcg-vilant 25 mcg inhalat.powder (Trelegy Ellipta) meloxicam 15 mg tablet 15 mg PO DAILY PRN 12/23/19 09/10/21 08/13/21 History saw palmetto 500 mg capsule 500 mg PO DAILY cap 12/23/19 09/10/21 09/10/21 History sildenafil 50 mg tablet 50 mg PO .3x weekly PRN tab 12/23/19 09/10/21 07/22/21 History simvastatin 40 mg tablet 40 mg PO DAILY 12/23/19 09/10/21 09/10/21 History hydrocodone 5 mg-acetaminophen 325 1 tab PO Q8H PRN #30 tab 08/28/21 09/10/21 09/10/21 Rx mg tablet cholecalciferol (vitamin D3) 25 25 mcg PO DAILY 09/10/21 09/10/21 09/10/21 History mcg (1,000 unit) capsule (Vitamin D3) omeprazole 40 mg capsule,delayed 40 mg PO DAILY 09/10/21 09/10/21 09/10/21 History release Allergies Allergy/AdvReac Type Severity Reaction Status Date / Time amoxicillin [From Augmentin] Allergy Intermediate ALGY-Rash Verified 09/10/21 16:18 clavulanic acid Allergy Intermediate ALGY-Rash Verified 09/10/21 16:18 [From Augmentin] amiodarone Allergy Unknown Verified 09/10/21 16:19 apixaban [From Eliquis] Allergy Unknown Verified 09/10/21 16:19 diphenhydramine Allergy ADR-Anxiety Verified 09/10/21 16:18 [From Benadryl] Current Medications Generic Name Dose Route Start Last Admin Trade Name Freq PRN Reason Stop Dose Admin Fluoxetine HCl 40 mg 09/11/21 09:00 09/11/21 10:17 Fluoxetine 20 Mg Capsule PO 40 mg DAILY ALISIA Administration Fluticasone Propionate 1 puff 09/11/21 08:00 09/11/21 08:25 Fluticasone 110 Mcg Inhaler 12gm INHALATION Not Given DAILY.RESPIRATORY ALISIA Piperacillin Sod/Tazobactam 50 mls @ 12.5 mls/hr 09/10/21 19:30 09/11/21 11:44 Sod 3.375 gm/ Sodium Chloride IV 12.5 mls/hr Q8H ALISIA Administration Protocol Lactated Ringer's 1,000 mls @ 100 mls/hr 09/10/21 18:49 09/11/21 03:51 Lactated Ringers IV 100 mls/hr .Q10H ALISIA Administration Vancomycin/PEG/NADA/Lysine/Water 1,250 mg in 250 mls @ 200 mls/hr 09/10/21 20:30 09/11/21 10:05 Vancocin IV 200 mls/hr Q12H ALISIA Administration Non-Formulary Medication 1 inh 09/11/21 09:00 09/11/21 10:45 [id number] [Trelegy Ellipta] INHALATION Not Given DAILY ALISIA Pantoprazole Sodium 40 mg 09/11/21 09:00 09/11/21 10:[address] 40 Mg Tablet PO 40 mg DAILY ALISIA Administration Temazepam 15 mg 09/10/21 18:49 09/10/21 19:45 Temazepam 15 Mg Capsule PO 15 mg BEDTIME PRN Administration INSOMNIA PFSH Anesthesia Medical History Aspiration pneumonia Atrial fibrillation with rapid ventricular response Confusion COPD (chronic obstructive pulmonary disease) GERD (gastroesophageal reflux disease) Hyperlipidemia Hyponatremia Lung mass Pneumonia Right upper lobe pulmonary nodule Surgical History History of eye surgery History of facial surgery History of laparoscopic appendectomy Status post lobectomy of lung Family History Denies family history of Anesthesia complication Bleeding disorder Social History Smoking and tobacco status: former smoker Quit status (tobacco): has quit using tobacco Year quit tobacco: 2021 Second hand smoke exposure: No Alcohol intake: never Adopted: No Caregiver/support person: Yes Lives independently: Yes Household members: spouse Housing: House Marital status: service: Yes status: Retired branch: [employer] Current occupational status: retired Pets and animals: No History of recent travel: No Leisure activites: exercise, hunting and fishing Sexually active: Yes Current gender identity: Male Sylvia/Adventist: Orthodox Data Anesthesia : 09/11/21 01:22 09/11/21 01:22 Short CBC 09/10/21 09/11/21 Range/Units 17:50 01:22 WBC 6.2 5.8 (4.0-10.0) 10^3/uL Hgb 14.7 13.2 (11.7-16.6) g/dL Hct 43.4 39.5 L (42.0-52.0) % MCV 96.2 H 97.5 H (80-94) fl Plt Count 299 284 (130-400) 10^3/cmm Neut % (Auto) 68.7 62.7 % Neut # (Auto) 4.23 3.61 (1.8-7.7) 10^3/uL BMP 09/10/21 09/11/21 17:50 01:22 Sodium 135 L 138 Potassium 4.4 3.7 Chloride 98 102 Carbon Dioxide 27 27 BUN 17 17 Creatinine 0.6 L 0.8 Glucose 89 106 Calcium 9.2 8.8 Liver Function 09/11/21 Range/Units 01:22 Total Bilirubin 0.4 (0.15-1.2) mg/dL AST 23 (0-40) U/L ALT 29 (0-41) U/L Alkaline Phosphatase 158 H (40-130) IU/L Albumin 3.5 (3.5-5.2) g/dL Coags 09/10/21 20:16 PT 15.20 H INR 1.16 APTT 35.9 Cardiac Studies: Echocardiogram 08/23/21
--- NOTE | 2021-09-11 12:12 | PM.PN ---
Subjective Subjective: I have conferred with Dr. Angulo. Interventional radiology colleagues Dr. Short and Dr. Denney have reviewed the studies and do not recommend attempt at percutaneous intervention. Dr. Angulo has also evaluated the chest with ultrasound and does not feel he can adequately reach the fluid collection which is situated inferiorly and posteriorly. I have discussed the opinions of my colleagues with Mr. Ibarra and his and family. General consensus is that an open procedure would be required for adequate evacuation of the fluid collection, lysis of adhesions, and placement of a drain. Dr. Angulo is concerned that with his postoperative aspiration pneumonia following the original procedure the current bodies may be related to an anaerobic infection. Vitals/I&O/Wt Last Vital Signs Temp 98.4 F 09/11/21 11:30 Pulse 78 09/11/21 11:30 Resp 18 09/11/21 11:30 BP 116/68 09/11/21 11:30 Pulse Ox 98 09/11/21 11:30 09/10/21 09/11/21 09/11/21 22:59 06:59 14:59 Intake Total 450 / 450 900 / 1350 50 / 50 Output Total 500 / 500 625 / 1125 Balance -50 / -50 275 / 225 50 / 50 Weight last 48 hrs Weight 160 lb Data : 09/11/21 01:22 09/11/21 01:22 A&P Assessment and plan (1) Hydropneumothorax: I have spoken at bedside with Mr. Ibarra, his and family. Options for open approach for drainage and chest tube placement have been discussed. They are in agreement but are obviously concerned. I spoken with my anesthesia colleague and we will proceed with a thoracic epidural catheter which did provide good pain control with his original procedure. Will also make arrangements for ICU bed availability for postoperative care and will seek the expertise of our pulmonary colleagues and hospitalist service. Status: Acute Attestations Medical Necessity Statement*: Hydropneumothorax status post lobectomy Coding Level of Care Code Acute Sales And Leasing Agent for [facility] Diagnoses Hydropneumothorax J94.8
[2021-09-11] MEDS: sodium chloride 0.9% 1,000 ML 30 ML IV (12:51)
--- NOTE | 2021-09-11 13:00 | PC.NURSE ---
surgery Pt was taken down to surgery around 1230.
--- NOTE | 2021-09-11 13:15 | P.CONIM_ITS ---
Providers/Reason For Consult Consulting Physician/Specialty*: Pulmonary and critical care medicine Reason for Consult*: Hydropneumothorax of the right side with subcutaneous extension following right-sided lobectomy Requesting Physician: Dr. Mccartney Attending Physician: Gaston Mccartney MD Primary Care Provider: CIRILO Rehman History of Present Illness History of Present Illness Giancarlo Ibarra Jr is a 70 year old male who presented to the emergency department yesterday with concerns of bulging of the right posterior upper back over the incision site. The patient underwent right upper and middle lobectomy for suspected lung cancer on August 20. According to the patient, he was walking yesterday felt a sudden pop in the posterior aspect of his chest this was followed by the development of bulging. The patient initially had a CT scan of the chest in June 2021. There was an 1.8 x 1.3 x 1.6 cm spiculated nodule in the posterior segment of the right upper lobe. This was followed by a PET CT scan which revealed PET positivity of the lesion. The SUV was 5.8. There is a secondary right apical nodule that was FDG negative. The patient also had a 6 cm superior segment left lower lobe nodule that was too small to characterize on PET scan. The lesion was thought to be highly suspicious for malignancy. The patient a pulmonary function test in July 2021 prior to his surgery. His FEV1 FVC ratio is 58% with FEV1 of 2.55 L which was 75% of [place] and forced vital capacity of 2.4 L which was 97% of predicted. His total lung capacity was 98% and residual volume of 116%. His DLCO was moderately reduced at 40%. The patient had undergone right upper and middle lobectomy for a spiculated right upper lobe posterior segment lung lesion. 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 In the initial pathology read, there had been concerns for a fungal pathogen however the GMS and AFB stains had been negative. Post lobar resection, the patient had developed worsening hypoxemia as well as aspiration pneumonia involving the remaining right lower lobe. This was treated with antibiotic with subsequent improvement in his oxygen requirement and symptoms. The patient eventually left the hospital on August 28. After presenting to the hospital yesterday, the patient underwent a CT scan of the chest. I have reviewed the CT scan and compared that with the last CT scan obtained in early August. The patient has loculated right-sided pleural effusion with pockets of air. Additionally, the patient has a defect in the chest wall through which the pneumothorax and fluid from the pleural space has reached the subcutaneous space in the right posterior chest next to the scapula. On the CT scan obtained in early August, the patient did have some air in the pleural space on the right side however this was thought to be secondary to volume reduction after the lobectomies. There is clear fibrinous strand on the latest CT scan. I had evaluated the patient in his room today. His and his daughter were there. The patient appeared to be comfortable. He does not have a white count, no fever and appears clinically and hemodynamically stable. I had performed a bedside ultrasound which revealed a loculated effusion in the posterior chest, there was visible fibrinous stranding. Review of Systems Narrative: General: No fevers chills night sweats or fatigue Skin: No rash HEENT: No nasal congestion, rhinitis, sinusitis, sneezing Neck: There is no neck swelling, or mass Respiratory: The patient has cough, sputum production and exertional shortness of breath Cardiovascular: No chest pain, or orthopnea Gastrointestinal: No abdominal pain, nausea, vomiting Musculoskeletal: No joint pain or swelling Neurological: Patient is awake alert and oriented x3, no paralysis, gross motor function is normal Psychiatric: No anxiety or depression Medications/Allergies Home Medications Medication Instructions Recorded Confirmed Last Taken Type albuterol sulfate 90 mcg/actuation 2 puff INHALATION Q4H PRN gm 12/23/19 09/10/21 08/18/21 History aerosol inhaler (ProAir HFA) fluoxetine 40 mg capsule 40 mg PO DAILY 12/23/19 09/10/21 09/10/21 History fluticasone fur. 100 mcg-umeclid 1 inh INHALATION DAILY 12/23/19 09/10/21 09/10/21 History 62.5 mcg-vilant 25 mcg inhalat.powder (Trelegy Ellipta) meloxicam 15 mg tablet 15 mg PO DAILY PRN 12/23/19 09/10/21 08/13/21 History saw palmetto 500 mg capsule 500 mg PO DAILY cap 12/23/19 09/10/21 09/10/21 History sildenafil 50 mg tablet 50 mg PO .3x weekly PRN tab 12/23/19 09/10/21 07/22/21 History simvastatin 40 mg tablet 40 mg PO DAILY 12/23/19 09/10/21 09/10/21 History hydrocodone 5 mg-acetaminophen 325 1 tab PO Q8H PRN #30 tab 08/28/21 09/10/21 09/10/21 Rx mg tablet cholecalciferol (vitamin D3) 25 25 mcg PO DAILY 09/10/21 09/10/21 09/10/21 History mcg (1,000 unit) capsule (Vitamin D3) omeprazole 40 mg capsule,delayed 40 mg PO DAILY 09/10/21 09/10/21 09/10/21 History release Allergies Allergy/AdvReac Type Severity Reaction Status Date / Time amoxicillin [From Augmentin] Allergy Intermediate ALGY-Rash Verified 09/10/21 16:18 clavulanic acid Allergy Intermediate ALGY-Rash Verified 09/10/21 16:18 [From Augmentin] amiodarone Allergy Unknown Verified 09/10/21 16:19 apixaban [From Eliquis] Allergy Unknown Verified 09/10/21 16:19 diphenhydramine Allergy ADR-Anxiety Verified 09/10/21 16:18 [From Benadryl] Current Medications Generic Name Dose Route Start Last Admin Trade Name Freq PRN Reason Stop Dose Admin Fluoxetine HCl 40 mg 09/11/21 09:00 09/11/21 10:17 Fluoxetine 20 Mg Capsule PO 40 mg DAILY ALISIA Administration Fluticasone Propionate 1 puff 09/11/21 08:00 09/11/21 08:25 Fluticasone 110 Mcg Inhaler 12gm INHALATION Not Given DAILY.RESPIRATORY ALISIA Piperacillin Sod/Tazobactam 50 mls @ 12.5 mls/hr 09/10/21 19:30 09/11/21 11:44 Sod 3.375 gm/ Sodium Chloride IV 12.5 mls/hr Q8H ALISIA Administration Protocol Lactated Ringer's 1,000 mls @ 100 mls/hr 09/10/21 18:49 09/11/21 03:51 Lactated Ringers IV 100 mls/hr .Q10H ALISIA Administration Vancomycin/PEG/NADA/Lysine/Water 1,250 mg in 250 mls @ 200 mls/hr 09/10/21 20:30 09/11/21 12:15 Vancocin IV Infused Q12H ALISIA Infusion Non-Formulary Medication 1 inh 09/11/21 09:00 09/11/21 10:45 Myxcfnpcdbz-Jjhmzchwp-Vkjfbqnc [Trelegy Ellipta] INHALATION Not Given DAILY ALISIA Pantoprazole Sodium 40 mg 09/11/21 09:00 09/11/21 10:[address] 40 Mg Tablet PO 40 mg DAILY ALISIA Administration Temazepam 15 mg 09/10/21 18:49 09/10/21 19:45 Temazepam 15 Mg Capsule PO 15 mg BEDTIME PRN Administration INSOMNIA PFSH Acute PFSH: Medical History (Updated 09/11/21 @ 13:47 by Rachel Angulo MD) Aspiration pneumonia Atrial fibrillation with rapid ventricular response Confusion COPD (chronic obstructive pulmonary disease) GERD (gastroesophageal reflux disease) Hyperlipidemia Hyponatremia Lung mass Pneumonia Right upper lobe pulmonary nodule Surgical History History of eye surgery History of facial surgery History of laparoscopic appendectomy Status post lobectomy of lung Family History Denies family history of Anesthesia complication Bleeding disorder Social History Smoking and tobacco status: former smoker Quit status (tobacco): has quit using tobacco Year quit tobacco: 2021 Second hand smoke exposure: No Alcohol intake: never Adopted: No Caregiver/support person: Yes Lives independently: Yes Household members: spouse Housing: House Marital status: service: Yes status: Retired branch: [employer] Current occupational status: retired Pets and animals: No History of recent travel: No Leisure activites: exercise, hunting and fishing Sexually active: Yes Current gender identity: Male Sylvia/Caodaism: Pentecostalism Vitals/I&O/Wt Last Vital Signs Temp 98.1 F 09/11/21 12:43 Pulse 70 09/11/21 12:43 Resp 18 09/11/21 12:43 BP 122/73 09/11/21 12:43 Pulse Ox 98 09/11/21 12:43 09/10/21 09/11/21 09/11/21 22:59 06:59 14:59 Intake Total 450 / 450 900 / 1350 300 / 300 Output Total 500 / 500 625 / 1125 Balance -50 / -50 275 / 225 300 / 300 Weight last 48 hrs Weight 160 lb Physical Exam Narrative: General: Patient is awake alert and oriented, in no distress Neck: No JVD Respiratory: Inspection: Previous thoracotomy wound in the right chest, visible bulging right below the thoracotomy wound Palpation: Reduced movement on the right hemithorax, palpable subcutaneous emphysema over the same distribution Percussion: Dullness to percussion over the right posterior hemithorax Auscultation: Reduced breath sound over the right lateral and posterior h emithorax, no wheezing or rhonchi Cardiovascular: Regular rate and rhythm, S1-S2 present, distant heart sound, no murmur, no peripheral edema. Abdomen: Soft, nontender, nondistended, positive bowel sound Musculoskeletal: No obvious joint deformity Skin: No rash Neuro: Mental status is normal, no gross cranial nerve deficit, normal gross motor function Data : 09/11/21 01:22 09/11/21 01:22 Micro: Microbiology 09/10/21 19:34 Gram Stain - Final Sputum - Expectorated Sputum Other data: I have reviewed the patient's laboratory, microbiologic and radiologic data. Please see the HPI for detail. A&P Assessment and plan (1) Hydropneumothorax: This is a 70-year-old gentleman who recently underwent right upper and middle lobectomy for suspected lung cancer coming in after hearing a pop while walking yesterday with bulging in the right posterior chest. In the emergency department the patient was found to have hydropneumothorax as well as subcutaneous emphysema of the right side. The primary concern I have is whether the patient is having a low-grade anaerobic infection in the pleural space on the right side. On his last CT scan of the chest on August 23 the patient did have small quantity of air in the pleural space which was thought to be secondary to volume loss after the lobectomy and mismatch right hemithorax in the setting of COPD. However, on the latest CT scan there has been a significant progression of the air in the pleural space as well as definite evidence of fluid and stranding on CT scan as well as an ultrasound. There are 2 possibilities why the patient will have worsening pneumothorax. #1, the patient has developed alveolar pleural fistula which is contributing to the worsening pneumothorax. Or #2, the patient has been suffering from a low-grade anaerobic infection which is associated with production of gas which has eventually escaped through the defect in the chest wall that was created due to the thoracotomy. As there is escape of the gas in the subcutaneous tissue, the pneumothorax has not progressed further. In any case, the pleural fluid needs to be sampled and cultured to make sure the patient receives adequate antibiotic coverage. Unfortunately, we are unable to reach this loculated collection of fluid by an ultrasound-guided chest tube. The place will likely need to be reexplored by surgery. I would recommend sending gram stain and culture, fungal stain and culture, AFB stain and culture. The bacterial culture needs to be both aerobic and anaerobic. I will convey this message to the OR team if the patient is going for surgery. The patient is currently broadly covered with antibiotic. We will be able to cut down the antibiotic coverage once we have the pleural fluid sample available. Status: Acute (2) Subcutaneous emphysema: The subcutaneous emphysema on the right side is likely due to escape of air through the chest wall defect into the subcutaneous tissue. There is visible bulging and sensation of air passing through the previous thoracotomy wound on p alpation. Status: Acute (3) COPD (chronic obstructive pulmonary disease): The patient did have evidence of moderate airflow obstruction with moderate reduction in DLCO. The patient is currently on Trelegy which we will continue. There is no evidence of COPD exacerbation at this time. I have discussed the plan in detail with the family and Dr. Mccartney. I will continue to be available for his care. Status: Acute Coding Level of Care Code Acute Acute Specialist for g Fwd Diagnoses Hydropneumothorax J94.8 Subcutaneous emphysema T79.7XXA COPD (chronic obstructive pulmonary disease) J44.9
--- NOTE | 2021-09-11 13:26 | ANES.PROC ---
Anesthesia Procedures Procedure/Date: 09/11/21 Nerve Block ^: Nerve Block 1: Main Anesthesia: general anesthesia Time Out Performed: Yes Consent: requested by attending/covering physician, from patient, risks and benefits reviewed and patient agrees to proceed Nerve block location: other (erector spinae T3) Anesthesia monitors applied: pulse oximetry, EKG, BP cuff and oxygen Nerve block position: other (sitting ) Anesthetic Used: ropivicaine 0.5% Amount of anesthesia used (mL): 12 Ultrasound used to: recognize landmarks Nerve Stimulator Used?: No Interscalene/Femoral BLK: 4 stimuplex 21 g needle used for position and inplane approach, visualize local anesthetic spread and no vascular puncture identified Injection: neg aspiration of heme Patient Tolerated Procedure: well Complications: none Additional Comments: After time out sterile prep, sedation administered, using sterile technique with US probe cover, and using real time US guidance for target selection needle was inserted with real time visualization of needle entry and real time visualization of needle advancement toward intended target. Negative aspiration. LA injected incrementally with negative aspiration every 5 cc and real time US visualization of LA spread throughout procedure. Tolerated well. Image(s) saved. 1 of 3 total erector spinae block injections. Nerve Block 2: Main Anesthesia: general anesthesia Time Out Performed: Yes Consent: requested by attending/covering physician, from patient, risks and benefits reviewed and patient agrees to proceed Nerve block location: other (erector spinal T6 ) Anesthesia monitors applied: pulse oximetry, EKG, BP cuff and oxygen Nerve block position: other (sitting ) Anesthetic Used: ropivicaine 0.5% Amount of anesthesia used (mL): 11 Ultrasound used to: recognize landmarks Interscalene/Femoral BLK: 4 stimuplex 21 g needle used for position and inplane approach, visualize local anesthetic spread and no vascular puncture identified Injection: neg aspiration of heme Patient Tolerated Procedure: well Complications: none Additional Comments: After time out sterile prep, using sterile technique, and using real time US guidance for target selection needle was inserted with real time visualization of needle entry and real time visualization of needle advancement toward intended target. Negative aspiration. LA injected incrementally with negative aspiration every 5 cc and real time US visualization of LA spread throughout procedure. Tolerated well. Image(s) saved. 2nd of 3 erector spinae blocks/injections.
--- NOTE | 2021-09-11 13:32 | ANES.PROC ---
Anesthesia Procedures Procedure/Date: 09/11/21 Nerve Block ^: Nerve Block 1: Main Anesthesia: general anesthesia Time Out Performed: Yes Consent: requested by attending/covering physician, from patient, risks and benefits reviewed and patient agrees to proceed Nerve block location: other (erector spinae T8) Anesthesia monitors applied: pulse oximetry, EKG, BP cuff and oxygen Nerve block position: other (sitting ) Anesthetic Used: ropivicaine 0.5% Amount of anesthesia used (mL): 6 Ultrasound used to: recognize landmarks Nerve Stimulator Used?: No Interscalene/Femoral BLK: 4 stimuplex 21 g needle used for position and inplane approach Injection: neg aspiration of heme Patient Tolerated Procedure: well Complications: none Additional Comments: After time out sterile prep, patient sedated, using sterile technique with US probe cover, and using real time US guidance for target selection needle was inserted with real time visualization of needle entry and real time visualization of needle advancement toward intended target. Negative aspiration. LA injected incrementally with negative aspiration every 5 cc and real time US visualization of LA spread throughout procedure. Tolerated well. Image(s) saved. 3rd block of three total erector spinae blocks/injections.
--- NOTE | 2021-09-11 13:43 | PC.NURSE ---
Report Report was given to Des in ICU.
[2021-09-11] MEDS: lidocaine 1% INJ 20 mL INJECTION (14:36)
[2021-09-11] MEDS: vancomycin 1,000 MG SDV 1000 MG IRRIGATION (15:00)
--- NOTE | 2021-09-11 16:17 | ANE.PACU2 ---
Inpatient post-anesthesia follow up: Vital signs: Temperature 98.1 F Pulse Rate 70 Respiratory Rate 18 Blood Pressure 122/73 Pulse Oximetry 98 Oxygen Delivery Me thod Room Air Oxygen Flow Rate 4 Fraction of Inspir ed Oxygen
[2021-09-11] MEDS: ketorolac 30 mg/mL INJ IVP (16:37)
[2021-09-11] MEDS: morphine 4 mg/mL SDV 1 mL 2 MG IVP ×2 (16:59→19:30)
--- NOTE | 2021-09-11 17:08 | PC.NURSE ---
Received patient from OR staff at 1620. HR: 75, BP: 102/62, RR 16, SPO2: 100%, Temp: 97.6. Patient is alert to person, place, time, and situation. Patient has 2 chest tubes hooked to suction No air leak indicated by air leak detection chamber. Patient reports pain /10. Morphine, toradol, and dilaudid available prn for pain (see mar). Family at bedside.
[2021-09-11 17:37] LABS: LDH Body Fluid 568 U/L; Total Protein Body Fluid 4.3 g/dL
--- NOTE | 2021-09-11 17:41 | PM.OP ---
Operative Report Date of procedure: September 11, 2021 Pre-op diagnosis: Preop Diagnosis right hydropneumothorax status post lobectomy Post-op diagnosis: same Procedure done: Right thoracotomy with decortication Specimens removed/disposition: Fluid and empyema peel collected for culture and gram stain Surgeon: Gaston Mccartney Estimated blood loss (mL): 150 Complications: None Brief History: Mr. Ibarra is a 70-year-old gentleman who is status post right upper lobectomy on August 22 for a stellate lesion noted on CT scan which was new along with increased activity on PET scan and a long history of tobacco use. Subsequent pathology did not find malignancy but there is concerns of fungal elements with noncaseating granulomas noted. He represented yesterday with a right hydropneumothorax which was new. Studies were evaluated by our radiology colleagues and Dr. Angulo from pulmonary medicine. It is not felt that this area can be reached percutaneously and therefore because of concerns of potential anaerobic infection as a residual from his postoperative right lower lobe pneumonia, exploration with decortication and evacuation of fluid has been recommended. This was discussed carefully with Mr. Ibarra and family. Appropriate consents have been reviewed and signed. Procedure: Mr. Ibarra was taken laterally room theater and carefully positioned on the OR table. Appropriate basic lines were placed. He underwent general trach anesthesia with double-lumen tracheal tube placed and confirmed position. Due to recent Eliquis administration, he did not receive a preoperative thoracic epidural catheter. He was then carefully positioned in the left lateral decubitus position on fracture rolls and protective padding. His entire right chest was sterilely prepped and draped. After appropriate timeout, thoracotomy was made through the prior surgical incision and carried down through subtendinous tissues where there was some subcutaneous fluid noted. This was collected. This fluid was serous and appeared quite clear. Dissection was continued down to the chest wall where the chest cavity was then entered. A tuffier retractor was placed. As expected, the right lower lobe had substantial adhesions particularly posteriorly and inferiorly. Much of these were Taken down under judicious fashion in an attempt to prevent or limit parenchymal damage. As we continued expiration toward the diaphragm and posteriorly, we did reach a second level of what appeared to be loculated fluid which had a turbid appearance and a slight malodor. This fluid was collected separately for appropriate Gram stains, analysis, and cultures. Next digital fracture was utilized to break up as many lesions as possible as well as removal of a small empyema peel inferiorly and posteriorly which was also collected and sent for appropriate cultures. Following this, all adhesions that we can be safely taken down were removed. There was still some adhesions posteriorly and inferiorly which were felt to be quite adherent and I was concerned would result in substantial parenchymal lung injury and subsequent airleak. As I felt that we had appropriately entered loculated fluid inferiorly across the diaphragm, I elected not to try and attempt further dissection for fear of parenchymal injury. Entire chest cavity was Irrigated with antibiotic solution. 2 pleural drains were placed. 1 anteriorly to the apex and a second slightly more posteriorly across the diaphragm and for the posterior aspect where the previous loculated fluid had been collected. These were carefully secured and then connected to Pleur-evac suction. Following this, sponge needle count was confirmed to be correct. The chest wall was reapproximated with interrupted #2 Vicryl suture. Fascia layer was closed with running 0 Vicryl suture. Subcutaneous layer was closed with 2-0 Vicryl suture. Skin was reapproximated with surgical jerome secondary to concerns of potentially infected fluid. Sterile dressing was applied. Mr. Ibarra was returned to the supine position where he was awakened and extubated. He was then transferred to the ICU in stable condition. I counseled with family at completion of the procedure. I have also discussed findings with my colleague Dr. Angulo who did enter the OR suite.
[2021-09-11] MEDS: HYDROmorphone 1 mg/mL INJ 1 mL 0.4 MG IVP (17:50)
--- NOTE | 2021-09-11 18:27 | PC.NURSE ---
SHift SUmmary: Received patient from OR staff at approximately 1630. Shift has been uneventful. Patient has rested in bed throughout the shift. Pain is controlled well with available PRN pain medications. [address] with no evidence of leakage. hest tube output has been about 10 mL so far, sanguineous drainage.
--- NOTE | 2021-09-11 20:44 | ANE.PACU2 ---
Inpatient post-anesthesia follow up: Airway intact: Yes Vital signs: Temperature 98.1 F Pulse Rate 84 Respiratory Rate 22 Blood Pressure 122/73 Pulse Oximetry 96 Oxygen Delivery Me thod Nasal Cannula Oxygen Flow Rate 2 Fraction of Inspir ed Oxygen Hydration adequate: Yes Nausea and vomiting: No Pain level: 8 Mental status: Baseline Additional Comments: Expected pain given procedure and inability to provide neuraxial anesthesia Receiving multimodal analgesia
[2021-09-11] MEDS: temazepam 15 mg Capsule PO (21:53)
[2021-09-11] MEDS: HYDROcodone-acetaminophen 5-325 mg Tablet 1 TAB PO (22:55)
[2021-09-12] VITALS (13 sets, daily range): BP systolic 86–123; BP diastolic 59–71; PULSE 64–76; RESP 12–25; TEMP 36.3–36.9; O2SAT 92–98
[2021-09-12] MEDS: piperacillin-tazobactam 3.375 GM in sodium chloride 0.9% (plus) 50 ML IV ×3 (03:30→22:04)
[2021-09-12] MEDS: HYDROcodone-acetaminophen 5-325 mg Tablet 1 TAB PO ×5 (03:37→20:12)
[2021-09-12 03:50] LABS: Basophils % 0.1 %; Hematocrit 42.6 % (42.0-52.0); Hemoglobin 13.3 g/dL (11.7-16.6); Lymphocytes # 0.5 10^3/uL (0.8-4.8); Lymphocytes % 6.9 %; Mean Corpuscular HGB Conc 31.2 g/dL (30.0-36.0); Mean Corpuscular Hemoglobin 32.8 pg (28.0-34.0); Mean Corpuscular Volume 104.9 fl (80-94); Mean Platelet Volume 9.2 fL (7.4-10.4); Monocytes # 0.5 10^3/uL (0.2-0.9); Monocytes % 6.9 %; Neutrophils # 6.58 10^3/uL (1.8-7.7); Neutrophils % 85.2 %; Nucleated Red Blood Cells % 0 %; Platelet Count 226 10^3/cmm (130-400); Red Blood Count 4.06 10^6/uL (4.1-5.3); Red Cell Distribution Width 13.3 % (12.1-15.1); White Blood Count 7.7 10^3/uL (4.0-10.0)
[2021-09-12 04:06] LABS: Anion Gap 16.5 (5-19); Blood Urea Nitrogen 19 mg/dL (8-23); Calcium 8.4 mg/dL (8.5-10.5); Carbon Dioxide 20 mmol/L (22-29); Chloride 105 mmol/L (98-107); Glomerular Filtration Rate 133.2 mL/min (90-130); Glucose 111 mg/dL (65-115); Osmolality Calculated 287 mOsm/kg (285-295); Potassium 4.5 mmol/L (3.5-5.1); Sodium 137 mmol/L (136-145)
--- NOTE | 2021-09-12 06:00 | XR_ITS ---
WS: [id number] Exam: XR chest 1V portable [id number] Date/Time of Exam: 09/12/2021 4:40 AM Reason For Exam: s/p decortication Comparison 08/27/2021. Improving interstitial infiltrate in the mid and lower right lung since previous study. Small right p leural effusion. Status post partial right pneumonectomy. Small amount of subcutaneous air seen along the right rib cage. Surgical skin clips along the right chest. Heart size within normal limits. Wide karin the mediastinum. The left lung is fully inflated. Mild interstitial infiltrate along the left he art border. A right thoracostomy tube is noted and ends in the apex of the right pleural cavity. Ther e may also be a second drainage tube in the right upper quadrant of the abdomen or lower right pleura l cavity. No pneumothorax is seen. Additional monitoring leads superimpose the chest. XR/XR chest 1V portable [id number] IMPRESSION: 1. Improving right-sided infiltrate since previous study. 2. Small amount of subcutaneous emphysema along the right rib cage and signs of recent partial right pneumonectomy. Small right pleural effusion. 3. Widening of the mediastinum unchanged.
--- NOTE | 2021-09-12 06:13 | PC.NURSE ---
Dr. Mccartney to bedside, order given to Robert/Bertha andesron and get patient up to chair today. Chest tubes assessed per Dr. Mccartney.
--- NOTE | 2021-09-12 06:39 | PM.PN ---
Subjective Subjective: Postop day #1 status post right decortication. Mr. Ibarra stated he slept well last night. No concerns from nursing service. Currently saturation is 98% on 2 L nasal cannula. Chest tube output is 200 cc since surgery. No airleak noted. Chest tube is to suction. Chest x-ray this morning reveals a clear right hemithorax with minimal residual fluid at the costodiaphragmatic angle. Chest tubes are in good position apically and over across the diaphragm laterally. Surgical dressing remains clean and dry. Vitals/I&O/Wt Last Vital Signs Temp 98.2 F 09/12/21 04:00 Pulse 67 09/12/21 06:00 Resp 16 09/12/21 06:00 BP 110/63 09/12/21 06:00 Pulse Ox 98 09/12/21 06:00 09/11/21 09/11/21 09/12/21 14:59 22:59 06:59 Intake Total 315.833 / 315.833 900 / 1215.833 500 / 1715.833 Output Total 150 / 150 140 / 290 670 / 960 Balance 165.833 / 165.833 760 / 925.833 -170 / 755.833 Weight last 48 hrs Weight 150 lb Weight 160 lb Physical Exam Chest: OTHER: Chest wall is stable. Surgical dressings are dry. Pleural drains are in good position. Resp: OTHER: Improved breath sounds in the right base and posteriorly. Cardio: COMMON NORMALS: regular rate, regular rhythm and S1 normal heart sound present RATE: regular rate RHYTHM: regular rhythm HEART SOUNDS: S1 normal heart sound present Extremity: COMMON NORMALS: no clubbing, cyanosis or edema Urinary Catheter Management: Cross Latex: Cath Placed During This Visit: yes Reason for Continuing Indwelling Catheter: Accurate Measurement of Urinary Output in Critically Ill Patients Urinary Catheter Date of Insertion: 09/11/21 Urinary Catheter Time of Insertion: 13:35 Data : 09/12/21 03:14 09/12/21 03:14 Micro: Microbiology 09/10/21 19:34 Gram Stain - Final Sputum - Expectorated Sputum A&P Assessment and plan (1) Hydropneumothorax: POD #1 status post right decortication Plan: Out of bed in chair Pulmonary toilet DC Cross catheter Continue chest tubes to suction for at least 1 more day CBC, BMP, chest x-ray in a.m. Operative cultures and Gram stains are pending Greatly appreciate expertise and recommendations of our pulmonary colleagues. 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
--- NOTE | 2021-09-12 06:41 | PC.NURSE ---
Cross DC'd, tolerated well, urinal placed at bedside. Up to chair at bedside, tolerated well.
[2021-09-12 07:47] LABS: Vancomycin Trough 14.9 ug/mL (10-15)
[2021-09-12] MEDS: vancomycin 1,250 MG/250 ML PIGGYBACK 200 MG IV ×2 (07:47→22:10)
[2021-09-12] MEDS: pantoprazole DR 40 mg Tablet PO (07:47)
[2021-09-12] MEDS: fluoxetine 20 mg Capsule 40 MG PO (07:47)
--- NOTE | 2021-09-12 13:22 | P.PN_ITS ---
Subjective Subjective: The patient was seen and examined. He seems to be doing very well. He spent his morning sitting in a chair. The patient was saturating 97% without any oxygen. Chest x-ray this morning revealed no significant pleural space collection on the right side. The patient has 2 chest tubes in excellent position. The pleural fluid analysis is consistent with exudative pleural effusion. The gram stain from the pleural fluid collection did not grow any organism. The white count is stable. Chest tube output is about 200 cc. There is no air leak. Medications: Reviewed: Yes Vitals/I&O/Wt Last Vital Signs Temp 98.2 F 09/12/21 04:00 Pulse 65 09/12/21 10:00 Resp 18 09/12/21 10:00 BP 121/65 09/12/21 10:00 Pulse Ox 98 09/12/21 10:00 09/11/21 09/12/21 09/12/21 22:59 06:59 14:59 Intake Total 900 / 1215.833 500 / 1715.833 290 / 290 Output Total 140 / 290 670 / 960 Balance 760 / 925.833 -170 / 755.833 290 / 290 Weight last 48 hrs Weight 150 lb Weight 160 lb Physical Exam Narrative: Patient is awake alert and oriented, in no distress Neck: No JVD Respiratory: Auscultation: Reduced breath sound bilaterally, no crackles wheezing or rhonchi, I had not examined the thoracotomy wound Cardiovascular: Regular rate and rhythm, S1-S2 present, distant heart sound, no murmur, no peripheral edema. Abdomen: Soft, nontender, nondistended, positive bowel sound Musculoskeletal: No obvious joint deformity Skin: No rash Neuro: Mental status is normal, no gross cranial nerve deficit, normal gross motor function Urinary Catheter Management: Cross Latex: Cath Placed During This Visit: yes Reason for Continuing Indwelling Catheter: Accurate Measurement of Urinary Output in Critically Ill Patients Urinary Catheter Date of Insertion: 09/11/21 Urinary Catheter Time of Insertion: 13:35 Data : 09/12/21 03:14 09/12/21 03:14 Micro: Microbiology 09/10/21 19:34 Gram Stain - Final Sputum - Expectorated Sputum Sputum Culture - Preliminary 09/11/21 14:14 Gram Stain - Final Thoracic Fluid Body Fluid Culture - Preliminary 09/11/21 13:48 Gram Stain - Final Thoracic Fluid Body Fluid Culture - Preliminary 09/11/21 14:53 Gram Stain - Final Thoracic Fluid Body Fluid Culture - Preliminary Other data: I have reviewed the patient's laboratory, microbiologic and radiologic data. The pleural fluid cultures have not grown any microorganisms yet. A&P Assessment and plan (1) Hydropneumothorax: This is a 70-year-old gentleman who recently underwent right upper and middle lobectomy for suspected lung cancer coming in after hearing a pop while walking yesterday with bulging in the right posterior chest. In the emergency department the patient was found to have hydropneumothorax as well as subcutaneous emphysema of the right side. He underwent decortication of the right side yesterday. The pleural fluid studies are consistent with complex pleural effusion. The cultures have been negative so far. The patient is on broad-spectrum antibiotic. There is no air leak. The patient is doing very well. He is saturating in the high 90s without any oxygen. He is getting transferred to the medical floor. I believe we will be able to take the chest tubes out in the near future. Status: Acute (2) Subcutaneous emphysema: The subcutaneous emphysema on the right side is likely due to escape of air through the chest wall defect into the subcutaneous tissue. There was minimal subcu emphysema on the chest x-ray this morning. Status: Acute (3) COPD (chronic obstructive pulmonary disease): The patient did have evidence of moderate airflow obstruction with moderate reduction in DLCO. The patient is currently on Trelegy which we will continue. There is no evidence of COPD exacerbation at this time. The patient may need oxygen with exertion. If that is the case, we will get him a portable oxygen concentrator before leaving the hospital. 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
--- NOTE | 2021-09-12 17:59 | PC.NURSE ---
Pt transferred to [facility] via wheelchair on room air. Chest tube was hooked back up to suction per orders. No leak noted.
--- NOTE | 2021-09-12 18:03 | PC.NURSE ---
received report from the icu. pt arrived via wc. ct placed to suction, tele on. pt sats 92% on ra. no c/o pain, oriented to room, dinner tray set up and daughter at bedside to help. no other needs identified at this time. call light in reach
[2021-09-12] MEDS: temazepam 15 mg Capsule PO (20:12)
--- NOTE | 2021-09-12 22:49 | PC.NURSE ---
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
[2021-09-13] VITALS (7 sets, daily range): BP systolic 110–165; BP diastolic 61–74; PULSE 67–90; RESP 15–19; TEMP 36.2–36.8; O2SAT 92–97
[2021-09-13] MEDS: HYDROcodone-acetaminophen 5-325 mg Tablet 1 TAB PO ×4 (04:21→20:02)
[2021-09-13 04:37] LABS: Basophils % 0.3 %; Eosinophils # 0.2 10^3/uL (0.0-0.8); Eosinophils % 2.5 %; Hematocrit 41.1 % (42.0-52.0); Hemoglobin 13.1 g/dL (11.7-16.6); Lymphocytes # 1.3 10^3/uL (0.8-4.8); Lymphocytes % 18.4 %; Mean Corpuscular HGB Conc 31.9 g/dL (30.0-36.0); Mean Corpuscular Hemoglobin 32.2 pg (28.0-34.0); Mean Platelet Volume 9.7 fL (7.4-10.4); Monocytes % 13.3 %; Neutrophils % 65.2 %; Nucleated Red Blood Cells % 0 %; Platelet Count 254 10^3/cmm (130-400); Red Blood Count 4.07 10^6/uL (4.1-5.3); Red Cell Distribution Width 13.4 % (12.1-15.1); White Blood Count 7.2 10^3/uL (4.0-10.0)
[2021-09-13 05:04] LABS: Anion Gap 11.9 (5-19); Blood Urea Nitrogen 15 mg/dL (8-23); Calcium 8.4 mg/dL (8.5-10.5); Carbon Dioxide 24 mmol/L (22-29); Chloride 104 mmol/L (98-107); Glomerular Filtration Rate 133.2 mL/min (90-130); Glucose 112 mg/dL (65-115); Osmolality Calculated 284 mOsm/kg (285-295); Potassium 3.9 mmol/L (3.5-5.1); Sodium 136 mmol/L (136-145)
--- NOTE | 2021-09-13 06:00 | XR_ITS ---
WS: [id number] Exam: XR chest 1V portable [id number] Date/Time of Exam: 09/13/2021 4:55 AM Reason For Exam: pod#2 s/p decortication Comparison 09/11/2001. Diffuse infiltrate in the right lower lung zone unchanged. The right lung remains fully expanded. Rig ht-sided thoracostomy tube ends in the superior right pleural cavity. Small amount of the right-sided subcutaneous emphysema along the rib cage. Surgical skin clips across the lateral right chest. Small right pleural effusion unchanged. Heart size is normal. There are still mild widening of the superio r mediastinum. Left lung remains clear. Calcified density in the upper left lung unchanged in appeara nce. XR/XR chest 1V portable [id number] IMPRESSION: 1. Chest radiograph showing no change since the last exam.
--- NOTE | 2021-09-13 08:36 | P.PN_ITS ---
Subjective Subjective: Mr. Ibarra was transferred to the [facility] yesterday afternoon. He states he slept fairly well last night though he is complaining of right shoulder discomfort, which I suspect is related to the apically placed chest tube. Chest x-ray this morning remains stable with good right lower lobe lung expansion. There is a very small area of probable fluid collection at the costodiaphragmatic angle as well as some right lateral pleural thickening. Afebrile. Vital signs are stable. He has no leukocytosis. Gram stain and culture reports are still trending in. Most recent reveals no anaerobes isolat ed on day 1 with no growth at 18 to 24 hours. Some white blood cells were seen on the gram stain specimen though no organisms are reported as of yet. Original sputum specimen revealed moderate normal yoko on day 1. Vitals/I&O/Wt Last Vital Signs Temp 98.2 F 09/13/21 04:00 Pulse 72 09/13/21 04:00 Resp 18 09/13/21 04:00 BP 137/73 09/13/21 04:00 Pulse Ox 92 09/13/21 04:00 09/12/21 09/13/21 09/13/21 22:59 06:59 14:59 Intake Total 50 / 950 300 / 1250 1000 / 1000 Output Total 307 / 307 1100 / 1407 Balance -257 / 643 -800 / -157 1000 / 1000 Weight last 48 hrs Weight 151 lb Weight 150 lb Physical Exam Chest: OTHER: Surgical dressings remain in place. Clean and dry. Chest wall is stable. There is no palpable subcutaneous emphysema. Resp: OTHER: Lungs are clear bilaterally with some slight decrease in the base laterally and posteriorly consistent with chest x-ray and prior exam. Cardio: COMMON NORMALS: regular rate, regular rhythm, S1 normal heart sound present and No murmurs present (Cardio) RATE: regular rate RHYTHM: regular rhythm HEART SOUNDS: S1 normal heart sound present Urinary Catheter Management: Cross Latex: Cath Placed During This Visit: yes Reason for Continuing Indwelling Catheter: Accurate Measurement of Urinary Output in Critically Ill Patients Urinary Catheter Date of Insertion: 09/11/21 Urinary Catheter Time of Insertion: 13:35 Data : 09/13/21 03:59 09/13/21 03:59 Micro: Microbiology 09/11/21 14:53 Gram Stain - Final Thoracic Fluid Anaerobic Culture - Preliminary Body Fluid Culture - Preliminary 09/11/21 14:14 Anaerobic Culture - Preliminary Thoracic Fluid 09/11/21 13:48 Anaerobic Culture - Preliminary Thoracic Fluid 09/10/21 19:34 Gram Stain - Final Sputum - Expectorated Sputum Sputum Culture - Preliminary 09/11/21 14:14 Gram Stain - Final Thoracic Fluid Body Fluid Culture - Preliminary 09/11/21 13:48 Gram Stain - Final Thoracic Fluid Body Fluid Culture - Preliminary A&P Assessment and plan (1) Hydropneumothorax: Postop day #2 status post right thoracotomy and decortication. Plan: Chest tube to waterseal Increase activity and pulmonary toilet We will carefully monitor chest tube output and begin sequential chest tube removal as output remains low. Greatly appreciate expertise and recommendations of our pulmonary colleagues. 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
[2021-09-13] MEDS: bisacodyl 5 mg Tablet PO (09:16)
[2021-09-13] MEDS: pantoprazole DR 40 mg Tablet PO (09:16)
[2021-09-13] MEDS: fluoxetine 20 mg Capsule 40 MG PO (09:16)
[2021-09-13] MEDS: docusate sodium 100 mg Capsule PO (09:16)
[2021-09-13] MEDS: vancomycin 1,250 MG/250 ML PIGGYBACK 200 MG IV ×2 (09:18→20:00)
--- NOTE | 2021-09-13 11:24 | PC.SOCIAL ---
IMM updated IMM dated and initialed, copy placed in chart and copy given to patient
[2021-09-13] MEDS: piperacillin-tazobactam 3.375 GM in sodium chloride 0.9% (plus) 50 ML IV ×2 (11:44→18:37)
[2021-09-13] MEDS: lactulose oral liq 20 gm/30 mL UDC 30 GM PO (18:20)
--- NOTE | 2021-09-13 18:31 | PC.NURSE ---
Patient OOBTC and ambulated several times throughout shift. Minimal c/o pain that is controlled with pain medication per JUN. CTU to water seal and patient with output marked and charted. Patient AAOx4 and VSS. NO new events during shift and no needs at this time. Family at bedside, room clean and clutter free with call light in reach. WIll report at bedside to oncoming nurse at shift change.
[2021-09-13] MEDS: diphenhydrAMINE 25 mg Capsule PO (20:02)
[2021-09-14] VITALS (9 sets, daily range): BP systolic 111–131; BP diastolic 68–81; PULSE 71–86; RESP 15–18; TEMP 36.5–36.9; O2SAT 92–96
[2021-09-14] MEDS: piperacillin-tazobactam 3.375 GM in sodium chloride 0.9% (plus) 50 ML IV ×3 (03:35→19:38)
[2021-09-14] MEDS: HYDROcodone-acetaminophen 5-325 mg Tablet 1 TAB PO ×4 (04:20→20:14)
[2021-09-14] MEDS: fluoxetine 20 mg Capsule 40 MG PO (08:04)
[2021-09-14] MEDS: vancomycin 1,250 MG/250 ML PIGGYBACK 200 MG IV ×2 (08:04→19:47)
[2021-09-14] MEDS: pantoprazole DR 40 mg Tablet PO (08:04)
--- NOTE | 2021-09-14 08:49 | PM.PN ---
Subjective Subjective: Postop day #3 status post right thoracotomy with decortication secondary to hydropneumothorax. Maintaining adequate saturations on room air. Dressings are clean and dry. Chest wall is stable. He looks quite good. Stated he rested well last night. Vitals/I&O/Wt Last Vital Signs Temp 97.9 F 09/14/21 07:51 Pulse 84 09/14/21 08:00 Resp 17 09/14/21 08:00 BP 125/76 09/14/21 07:51 Pulse Ox 94 09/14/21 08:00 09/13/21 09/14/21 09/14/21 22:59 06:59 14:59 Intake Total 990 / 3200 200 / 3400 350 / 350 Output Total 510 / 635 1550 / 2185 Balance 480 / 2565 -1350 / 1215 350 / 350 Weight last 48 hrs Weight 147 lb 8 oz Weight 151 lb Physical Exam Resp: OTHER: Improving breath sounds on the right side with continued down to the bases. Incentive spirometry 1500 cc. Chest tube output is reported at 300 cc past 24 hours by nursing service, though this looks to be less since I marked the Pleur-evac last night, at approximately 100 cc for the past 12 hours. Urinary Catheter Management: Cross Latex: Cath Placed During This Visit: yes Reason for Continuing Indwelling Catheter: Accurate Measurement of Urinary Output in Critically Ill Patients Urinary Catheter Date of Insertion: 09/11/21 Urinary Catheter Time of Insertion: 13:35 Data : 09/13/21 03:59 09/13/21 03:59 Micro: Microbiology 09/11/21 14:14 Anaerobic Culture - Preliminary Thoracic Fluid 09/11/21 14:53 Gram Stain - Final Thoracic Fluid Anaerobic Culture - Preliminary Body Fluid Culture - Preliminary 09/11/21 13:48 Anaerobic Culture - Preliminary Thoracic Fluid 09/10/21 19:34 Gram Stain - Final Sputum - Expectorated Sputum Sputum Culture - Final 09/11/21 13:48 Gram Stain - Final Thoracic Fluid Body Fluid Culture - Preliminary 09/11/21 14:14 Gram Stain - Final Thoracic Fluid Body Fluid Culture - Preliminary A&P Assessment and plan (1) Hydropneumothorax: Status: Acute Plan Postop day #3 status post right thoracotomy decortication secondary to hydropneumothorax. Plan: Chest x-ray 12 noon with possible chest tube removal this afternoon. 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
--- NOTE | 2021-09-14 13:00 | XRR_ITS ---
PROCEDURE INFORMATION: Exam: XR Chest Exam date and time: 09/14/2021 12:59 PM Age: 70 years old Clinical indication: Condition or disease; Other: F/u S/P RT upper lobe decortication. Patient had RT upper lobectomy on 08/22/2021; Prior surgery; Additional info: Post op cabg TECHNIQUE: Imaging protocol: XR of the chest. Views: 1 view. COMPARISON: CR XR chest 1V portable [id number] 09/13/2021 5:22 AM FINDINGS: Tubes, catheters and devices: There are surgical jerome overlying the right hemithorax, similar to the prior study. Lungs: Status post right upper lobectomy. Right lung opacities are similar to the prior study. Pleural spaces: There is blunting of the right costophrenic angle raising concern for a small right pleural effusion. Heart/Mediastinum: Unremarkable. No cardiomegaly. Diaphragm: Elevation of the right hemidiaphragm is similar to the prior study. Bones/joints: Unremarkable. XR/XR chest 1V portable [id number] IMPRESSION: 1. Status post right upper lobectomy. Right lung opacities are similar to the prior study. 2. There is blunting of the right costophrenic angle raising concern for a small right pleural effusion.
--- NOTE | 2021-09-14 17:25 | P.PN_ITS ---
Subjective Subjective: Mr. Ibarra has had a good afternoon. He has and granddaughter are at bedside. Remains on room air without dyspnea. Chest tube output only 20 or 30 cc much of today. No airleak. Vitals/I&O/Wt Last Vital Signs Temp 98.2 F 09/14/21 16:17 Pulse 79 09/14/21 16:17 Resp 17 09/14/21 16:17 BP 111/71 09/14/21 16:17 Pulse Ox 95 09/14/21 16:17 09/14/21 09/14/21 09/14/21 06:59 14:59 22:59 Intake Total 200 / 3400 840 / 840 50 / 890 Output Total 1550 / 2185 Balance -1350 / 1215 840 / 840 50 / 890 Weight last 48 hrs Weight 147 lb 8 oz Weight 151 lb Physical Exam Chest: OTHER: As well as stable. No palpable subcutaneous emphysema. Chest tubes were removed with Vaseline gauze occlusive dressing placed after suture secured. He tolerated chest tube removal well. Urinary Catheter Management: Cross Latex: Cath Placed During This Visit: yes Reason for Continuing Indwelling Catheter: Accurate Measurement of Urinary Output in Critically Ill Patients Urinary Catheter Date of Insertion: 09/11/21 Urinary Catheter Time of Insertion: 13:35 Data : 09/13/21 03:59 09/13/21 03:59 Micro: Microbiology 09/11/21 14:53 Gram Stain - Final Thoracic Fluid Anaerobic Culture - Preliminary Body Fluid Culture - Final 09/11/21 13:48 Anaerobic Culture - Preliminary Thoracic Fluid 09/11/21 14:14 Anaerobic Culture - Preliminary Thoracic Fluid 09/11/21 13:48 Gram Stain - Final Thoracic Fluid Body Fluid Culture - Final 09/11/21 14:14 Gram Stain - Final Thoracic Fluid Body Fluid Culture - Final A&P Assessment and plan (1) Hydropneumothorax: Progressing well. Will initiate oral antibiotics with Augmentin and clindamycin Home O2 evaluation in the morning and then plan for discharge. 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
--- NOTE | 2021-09-14 17:41 | PC.NURSE ---
Patient AAOx4, VSS, OOBTC and ambulating in halls frequently with family by his side. CTU pulled by physician this evening and tolerated well. Patient is having good UOP and had a good BM this AM. Pain controlled by pain med per JUN. No new events during shift, no needs at this time, room clean and clutter free, call light in reach. WIll report bedside to oncoming nurse at shift change.
[2021-09-14 19:26] LABS: Vancomycin Trough 13.7 ug/mL (10-15)
[2021-09-14] MEDS: amoxicillin-clav 500-125 mg Tablet 1 TAB PO (20:14)
[2021-09-14] MEDS: temazepam 15 mg Capsule PO (20:14)
[2021-09-14] MEDS: clindamycin 150 mg Capsule 300 MG PO (20:14)
[2021-09-15] MEDS: piperacillin-tazobactam 3.375 GM in sodium chloride 0.9% (plus) 50 ML IV (03:03)
[2021-09-15 04:00] VITALS: BP 129/74; PULSE 70; RESP 16; TEMP 36.6; O2SAT 98
--- NOTE | 2021-09-15 06:00 | XRR_ITS ---
PROCEDURE INFORMATION: Exam: XR Chest Exam date and time: 09/15/2021 7:33 AM Age: 70 years old Clinical indication: Dyspnea. Right chest tube recently removed. Postop day 4. Chest tubes removed TECHNIQUE: Imaging protocol: XR of the chest. Views: 1 view. COMPARISON: CR (CHEST, ) 09/14/2021 12:59 PM FINDINGS: Lungs: A mass in the left upper lobe appears similar. Minimal left basilar scarring or atelectasis. Pleural spaces: There is opacity at the right base likely reflecting loculated hydropneumothorax and consolidation. The appearance is similar to prior. No pneumothorax. Heart/Mediastinum: The cardiac silhouette is unchanged. No gross evidence of pneumomediastinum. Bones/joints: A right sided thoracic staple line is noted. No gross fracture. XR/XR chest 1V portable [id number] IMPRESSION: 1. Opacity at the right base likely reflecting loculated hydropneumothorax and consolidation. The appearance is similar to prior. 2. A mass in the left upper lobe appears similar.
[2021-09-15 07:32] VITALS: BP 123/71; PULSE 82; RESP 17; TEMP 36.6; O2SAT 94
[2021-09-15 07:58] VITALS: PULSE 108; RESP 20; O2SAT 94
[2021-09-15] MEDS: pantoprazole DR 40 mg Tablet PO (08:15)
[2021-09-15] MEDS: fluoxetine 20 mg Capsule 40 MG PO (08:15)
[2021-09-15] MEDS: amoxicillin-clav 500-125 mg Tablet 1 TAB PO (08:15)
[2021-09-15] MEDS: clindamycin 150 mg Capsule 300 MG PO (08:15)
--- NOTE | 2021-09-15 09:11 | P.DS_ITS ---
Discharge Providers Date of Admission: 09/10/21 16:43 Date of Discharge: September 15, 2021 Attending Provider at Admission: Faizan Gil MD Attending Provider at Discharge: Gaston Mccartney MD Consults: Dr. Angulo/pulmonary medicine Primary Care Provider: CIRILO Rehman Diagnoses at Discharge Discharge Diagnosis (1) Hydropneumothorax: Details from hospital stay: Mr. Ibarra is a 70-year-old gentleman status post right upper lobe partial lobectomy on August 20 due to a 2 cm stellate lesion which was new in the right upper lobe and was positive on PET scan. 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 He was discharged on August 28 on 4 L nasal cannula oxygen with scheduled follow-up in our clinic which was performed on September 05. He presented back with complaints of swelling in his right thoracotomy incision and thought inspection during the ER visit was found to have a hydropneumothorax. Options for minimally invasive approach of this were discussed with interventional radiology and pulmonary medicine though there was no consensus that percutaneous approach would be ideal. Therefore, he underwent right thoracotomy with decortication on September 11. There was concerned that this presentation was resolved about ongoing infection potentially anaerobic. It was noted at the time of the surgery there was no evidence for pulmonary parenchymal or bronchial air leak. While we did identify turbid fluid in the lower aspect of the hemothorax which was loculated, as of date, no substantial growth has been identified. He did have white cells in the material and a modest empyema which was removed. He has been on broad-spectrum antibiotics and remained afebrile without leukocytosis. His pulmonary status has steadily improved. He had no airleak after surgery. Chest tube drainage has slightly decreased and chest tubes were removed yesterday. For the last 3 days he has not required supplemental oxygen and has had a O2 saturation this morning of 94% on room air. Chest x-ray this morning is stable with a small blunting of the costodiaphragmatic angle on the right we will do an exercise trial prior to discharge to determine whether he needs supplemental oxygen. He has utilized home oxygen at night for a few years prior to his original surgery. Presently, he is tolerating a diet without difficulty. Normal bowel and bladder function. He is eager for discharge home. He is ambulating in the hallway without supplemental oxygen or assistance. We will continue oral broad-spectrum antibiotics for another week, which will include Augmentin and clindamycin. Status: Acute Reason for Visit Reason for Visit: surgery on lungs 08/20, having complications Physical Exam Chest: OTHER: Thoracotomy incision is healing well. No evidence for infection. Chest wall is stable. No subcutaneous emphysema. Resp: OTHER: Clear to auscultation bilaterally with slightly decreased breath sounds in the right base posteriorly Cardio: COMMON NORMALS: regular rate, regular rhythm, S1 normal heart sound present and No murmurs present (Cardio) RATE: regular rate RHYTHM: regular rhythm HEART SOUNDS: S1 normal heart sound present GI: COMMON NORMALS: Normal to inspection, nondistended, normoactive bowel sounds present Extremity: COMMON NORMALS: no clubbing, cyanosis or edema Urinary Catheter Management: Cross Latex: Cath Placed During This Visit: yes Reason for Continuing Indwelling Catheter: Accurate Measurement of Urinary Output in Critically Ill Patients Urinary Catheter Date of Insertion: 09/11/21 Urinary Catheter Time of Insertion: 13:35 Discharge Data Studies Completed and Pending Completed Studies During Hospitalization Category Date Time Status CT chest wo con 52224 Urgent Cat Scan 09/10/21 15:36 Completed XR chest 1V portable [id number] Routine Exams 09/12/21 06:00 Completed XR chest 1V portable [id number] Routine Exams 09/13/21 06:00 Completed XR chest 1V portable [id number] Routine Exams 09/14/21 13:00 Completed XR chest 1V portable [id number] Routine Exams 09/15/21 06:00 Completed Pending at discharge Category Date Time Status Actinomyces Culture Routine Lab 09/11/21 14:14 Received Anaerobic Culture Routine Lab 09/11/21 13:48 Results Anaerobic Culture Routine Lab 09/11/21 14:14 Results Anaerobic Culture Routine Lab 09/11/21 14:53 Results Body Fluid Culture & GS Routine Lab 09/11/21 14:53 Results Fungal Culture not HR/SK/BL Routine Lab 09/11/21 13:48 Received Fungal Culture not HR/SK/BL Routine Lab 09/11/21 14:14 Received Fungal Culture not HR/SK/BL Routine Lab 09/11/21 14:53 Received Mycobacteria, Culture w/Fluor Routine Lab 09/11/21 13:48 Received Mycobacteria, Culture w/Fluor Routine Lab 09/11/21 14:14 Received Mycobacteria, Culture w/Fluor Routine Lab 09/11/21 14:53 Received PRBC [Leukocyte Reduced RBC] Routine Lab 09/11/21 12:20 Results Type and Screen Routine Lab 09/11/21 12:20 Results Cytology [PTH] Routine Pth 09/11/21 13:50 Received Cytology [PTH] Routine Pth 09/11/21 14:16 Received Cytology [PTH] Routine Pth 09/11/21 15:00 Received Radiology Impressions Chest CT 09/10/21 15:36 IMPRESSION: 1. Status post RIGHT upper and RIGHT middle lobectomies. 2. Moderate size RIGHT hydropneumothorax. Progressed since 08/23/2021. The RIGHT thoracostomy tube has been removed since the prior study. 3. Bulging along the RIGHT lateral chest wall corresponds to air extending external from the thorax and contiguous with the pneumothorax. Chest X-Ray 09/15/21 06:00 IMPRESSION: 1. Opacity at the right base likely reflecting loculated hydropneumothorax and consolidation. The appearance is similar to prior. 2. A mass in the left upper lobe appears similar. Laboratory Results WBC 7.2 10^3/uL (4.0-10.0) 09/13/21 03:59 RBC 4.07 10^6/uL (4.1-5.3) L 09/13/21 03:59 Hgb 13.1 g/dL (11.7-16.6) 09/13/21 03:59 Hct 41.1 % (42.0-52.0) L 09/13/21 03:59 MCV 101.0 fl (80-94) H 09/13/21 03:59 MCH 32.2 pg (28.0-34.0) 09/13/21 03:59 MCHC 31.9 g/dL (30.0-36.0) 09/13/21 03:59 RDW 13.4 % (12.1-15.1) 09/13/21 03:59 Plt Count 254 10^3/cmm (130-400) 09/13/21 03:59 MPV 9.7 fL (7.4-10.4) 09/13/21 03:59 Neut % (Auto) 65.2 % 09/13/21 03:59 Lymph % (Auto) 18.4 % 09/13/21 03:59 Caroline % (Auto) 13.3 % 09/13/21 03:59 Eos % (Auto) 2.5 % 09/13/21 03:59 Baso % (Auto) 0.3 % 09/13/21 03:59 Neut # (Auto) 4.70 10^3/uL (1.8-7.7) 09/13/21 03:59 Lymph # (Auto) 1.3 10^3/uL (0.8-4.8) 09/13/21 03:59 Caroline # (Auto) 1.0 10^3/uL (0.2-0.9) H 09/13/21 03:59 Eos # (Auto) 0.2 10^3/uL (0.0-0.8) 09/13/21 03:59 Baso # (Auto) 0.0 10^3/uL (0.0-0.1) 09/13/21 03:59 Nucleated RBC % (auto) 0 % 09/13/21 03:59 Nucleated RBCs # 0.0 /100WBC 09/13/21 03:59 PT 15.20 SECONDS (12.1-14.9) H 09/10/21 20:16 INR 1.16 (0.8-1.2) 09/10/21 20:16 APTT 35.9 SECONDS (23.9-36.7) 09/10/21 20:16 Sodium 136 mmol/L (136-145) 09/13/21 03:59 Potassium 3.9 mmol/L (3.5-5.1) 09/13/21 03:59 Chloride 104 mmol/L (98-107) 09/13/21 03:59 Carbon Dioxide 24 mmol/L (22-29) 09/13/21 03:59 Anion Gap 11.9 (5-19) 09/13/21 03:59 BUN 15 mg/dL (8-23) 09/13/21 03:59 Creatinine 0.6 mg/dL (0.7-1.2) L 09/13/21 03:59 GFR Calculation 133.2 mL/min (90-130) H 09/13/21 03:59 Glucose 112 mg/dL (65-115) 09/13/21 03:59 Calculated Osmolality 284 mOsm/kg (285-295) L 09/13/21 03:59 Calcium 8.4 mg/dL (8.5-10.5) L 09/13/21 03:59 Total Bilirubin 0.4 mg/dL (0.15-1.2) 09/11/21 01:22 AST 23 U/L (0-40) 09/11/21 01:22 ALT 29 U/L (0-41) 09/11/21 01:22 Alkaline Phosphatase 158 IU/L (40-130) H 09/11/21 01:22 Total Protein 6.3 g/dL (6.6-8.7) L 09/11/21 01:22 Albumin 3.5 g/dL (3.5-5.2) 09/11/21 01:22 Globulin 2.8 g/dL (1.3-4.6) 09/11/21 01:22 Fluid Glucose Cancelled 09/11/21 14:53 Fluid Total Protein Cancelled 09/11/21 14:53 Fluid LDH Cancelled 09/11/21 14:53 RSV Nasal Swab Cancelled 09/11/21 14:53 RSV Nasal Swab Int Cntl Cancelled 09/11/21 14:53 Vancomycin Trough 13.7 ug/mL (10-15) 09/14/21 19:00 Adenovirus (PCR) Cancelled 09/11/21 14:53 Human Metapneumovir PCR Cancelled 09/11/21 14:53 Influenza A (RT-PCR) Cancelled 09/11/21 14:53 Influenza A (H1) PCR Cancelled 09/11/21 14:53 Influenza A (H3) PCR Cancelled 09/11/21 14:53 Influenza B (RT-PCR) Cancelled 09/11/21 14:53 Legionella Source Cancelled 09/11/21 14:53 L.pneumophila Antigen Cancelled 09/11/21 14:53 Parainfluenzae Type 1 Cancelled 09/11/21 14:53 Parainfluenzae Type 2 Cancelled 09/11/21 14:53 Parainfluenzae Type 3 Cancelled 09/11/21 14:53 Aspergillus Ag (EIA) Cancelled 09/11/21 14:14 A. galactomannan Ag EIA Cancelled 09/11/21 14:53 A. galactomannan Ag Idx Cancelled 09/11/21 14:53 RSV Ab Comment Cancelled 09/11/21 14:53 Rhinovirus (PCR) Cancelled 09/11/21 14:53 Blood Type O Positive 09/11/21 12:20 Rho(D) Type Positive 09/11/21 12:20 Antibody Screen Negative 09/11/21 12:20 Crossmatch See Detail 09/11/21 12:20 Vitals Last Vital Signs Temp 97.8 F 09/15/21 07:32 Pulse 108 H 09/15/21 07:58 Resp 20 H 09/15/21 07:58 BP 123/71 09/15/21 07:32 Pulse Ox 94 09/15/21 07:58 Discharge Plan Discharge Patient Disposition: Home Health Service Condition: Stable Prescriptions: New hydrocodone-acetaminophen 5-325 mg Tablet 1 tab PO Q6H PRN (Reason: Moderate Pain) Qty: 28 0RF clindamycin HCl 150 mg Capsule 300 mg PO TID Qty: 30 0RF temazepam 15 mg Capsule 15 mg PO BEDTIME PRN (Reason: Insomnia) Qty: 30 0RF amoxicillin-pot clavulanate 500-125 mg Tablet 1 tab PO TID Qty: 28 0RF Continued fluoxetine 40 mg capsule 40 mg PO DAILY 0RF meloxicam 15 mg tablet 15 mg PO DAILY PRN (Reason: muscle pain) 0RF albuterol sulfate [ProAir HFA] 90 mcg/actuation HFA aerosol inhaler 2 puff INHALATION Q4H PRN (Reason: Shortness Of Breath) 0RF saw palmetto 500 mg capsule 500 mg PO DAILY 0RF Rx Instructions: give with food (meal/snack) sildenafil 50 mg tablet 50 mg PO .3x weekly PRN (Reason: impotence) 0RF Rx Instructions: administer 30 minutes to 4 hours before activity simvastatin 40 mg tablet 40 mg PO DAILY 0RF Trelegy Ellipta 100-62.5-25 mcg blister with device 1 inh INHALATION DAILY 0RF hydrocodone-acetaminophen 5-325 mg tablet 1 tab PO Q8H PRN (Reason: pain) Qty: 30 0RF omeprazole 40 mg Capsule,Delayed Release(Dr/Ec) 40 mg PO DAILY 0RF Vitamin D3 25 mcg (1,000 unit) Capsule 25 mcg PO DAILY 0RF Discharge Orders: Discharge Order (Routine); Ordered 09/15/21 Ordered By: Gaston Mccartney Referrals: Dylan Michaels CPNP [Primary Care Provider] - Discharge Diet: Usual diet Discharge Activity: Limit activity as instructed Patient Instructions: Opioid Safety Activity Restrictions/Additional Instructions: No heavy lifting May shower but no tub baths or swimming x2 weeks Use incentive spirometer frequently Report any increasing productive cough, fever, increasing pain, or shortness of breath Discharge Attestations Time Spent in Discharge Care*: less than 30 min Status at Discharge: Cognitive status at discharge: cognitively intact , Behavioral status at discharge: cooperative , Functional status at discharge: independent ambulation , Overall status at discharge: patient is progressing back to baseline Quality Metrics Clinical Quality Measures [ No reported AMI, CVA or VTE this stay] Coding Level of Care Code Acute Chg FW DC note Diagnoses Hydropneumothorax J94.8
[2021-09-15 10:31] VITALS: PULSE 108; RESP 20; O2SAT 94
--- NOTE | 2021-09-15 10:32 | PC.NURSE ---
patient and family verbalized understanding of discharge instructions, home medications, follow up appointments, and dressing changes.
--- NOTE | 2021-09-15 13:25 | PC.SOCIAL ---
[facility] UPDATED IMM dated and initialed, and copy given to patient. before DC.
== END 2021-09-15 10:20 | disposition home health service (06) | DRG 163 ==
LOC: ER 16:45 → MEDSURG 17:21 → ICU 09-11 15:18 → MEDSURG 09-12 17:12
PROVIDERS: Admitting Provider Student in an Organized Health Care Education/Training Program; Emergency Provider Emergency Medicine; PCP Registered Nurse; Visit Provider Thoracic Surgery (Cardiothoracic Vascular Surgery)
PROC: 0BCF0ZZ Extirpation of Matter from Right Lower Lung Lobe, Open Approach (ICD-10-PCS; principal; 2021-09-11 12:30)
DX: J95.811 Postprocedural pneumothorax (principal); J86.9 Pyothorax without fistula; J94.8 Other specified pleural conditions; Z90.2 Acquired absence of lung [part of]; I48.91 Unspecified atrial fibrillation; Z87.01 Personal history of pneumonia (recurrent); J44.9 Chronic obstructive pulmonary disease, unspecified; K21.9 Gastro-esophageal reflux disease without esophagitis; E78.5 Hyperlipidemia, unspecified; Z87.891 Personal history of nicotine dependence; Z99.81 Dependence on supplemental oxygen; T81.82XA Emphysema (subcutaneous) resulting from a procedure, initial encounter; Z79.891 Long term (current) use of opiate analgesic; Z79.51 Long term (current) use of inhaled steroids
CPT/HCPCS: 36410; 36415; 51702; 64450; 71045; 71250; 76942; 80048; 80053; 80202; 82945; 83615; 84157; 85025; 85610; 85730; 86850; 86900; 86920; 87015; 87070; 87075; 87081; 87102; 87116; 87205; 87206; 87801; 88108; 88305; 99285; J1100; J1170; J1885; J2250; J2270; J2370; J2405; J2543; J2704; J2710; J2795; J3010; J3370; J3490; J3535; J7030

== ENCOUNTER → 2021-09-19 12:59 | Outpatient (BNVA) | payer MEDICARE, OTHER, SELFPAY | PROVIDERS: PCP Registered Nurse; Visit Provider Thoracic Surgery (Cardiothoracic Vascular Surgery) | DX: Z98.890 Other specified postprocedural states (principal) | CPT/HCPCS: 99024 ==

== ENCOUNTER → 2021-09-26 09:29 | Outpatient (BNVA) | payer MEDICARE, OTHER, SELFPAY | PROVIDERS: PCP Registered Nurse; Visit Provider Thoracic Surgery (Cardiothoracic Vascular Surgery) | DX: Z98.890 Other specified postprocedural states (principal) | CPT/HCPCS: 99024 ==

== ENCOUNTER 2021-10-04 11:22 | Outpatient (CLI) | payer MEDICARE, OTHER, SELFPAY ==
--- NOTE | 2021-10-04 11:33 | XR_ITS ---
WS: [id number] PA and lateral chest, 10/04/2021 Clinical Data: SOB Comparison: Portable chest, 09/15/2021. Findings: There is a 4 cm left upper lobe mass with a well marked border and calcifications which has not changed. There is volume loss of the right lung with flattening of the diaphragm which may be se condary to scarring and/or loculated effusion. The heart size is normal. The aortic arch and descendi ng thoracic aorta show tortuosity. Left diaphragm is flattened. No pneumonia or pneumothorax is seen. XR/XR chest 2V* [id number] Impression: 1. No change in volume loss of the right lung and scarring and elevation of the right diaphragm. 2. No change in 4 cm left upper lobe nodule. 3. Hyperinflation and atherosclerosis.
== END 2021-10-04 11:23 | disposition home or self-care (01) ==
PROVIDERS: PCP Registered Nurse; Visit Provider Internal Medicine Pulmonary Disease
DX: R06.02 Shortness of breath (principal); J94.8 Other specified pleural conditions; Z90.2 Acquired absence of lung [part of]; Z09 Encounter for follow-up examination after completed treatment for conditions other than malignant neoplasm; Z87.891 Personal history of nicotine dependence; K21.9 Gastro-esophageal reflux disease without esophagitis; E78.5 Hyperlipidemia, unspecified; J44.9 Chronic obstructive pulmonary disease, unspecified
CPT/HCPCS: 71046; 99214

== ENCOUNTER → 2021-10-31 12:39 | Outpatient (BNVA) | payer MEDICARE, OTHER, SELFPAY | PROVIDERS: PCP Registered Nurse; Visit Provider Thoracic Surgery (Cardiothoracic Vascular Surgery) | DX: Z98.890 Other specified postprocedural states (principal) | CPT/HCPCS: 99024 ==

== ENCOUNTER 2022-01-02 13:00 | Outpatient (CLI) | payer MEDICARE, OTHER, SELFPAY ==
--- NOTE | 2022-01-02 13:45 | CTR_ITS ---
PROCEDURE INFORMATION: Exam: CT Chest Without Contrast; Diagnostic Exam date and time: 01/02/2022 1:15 PM Age: 71 years old Clinical indication: Condition or disease; Lung condition and disease; Pulmonary nodule, solitary; Prior surgery; Surgery type: RT lobectomy; Additional info: R91.1 - solitary pulmonary nodule TECHNIQUE: Imaging protocol: Diagnostic computed tomography of the chest without contrast. Radiation optimization: All CT scans at this facility use at least one of these dose optimization techniques: automated exposure control; mA and/or kV adjustment per patient size (includes targeted exams where dose is matched to clinical indication); or iterative reconstruction. COMPARISON: CT chest [facility] [id number] 09/10/2021 3:51 PM RADIATION DOSE METRICS: Total DLP (mGy-cm): 578.74 FINDINGS: Lungs: Stable 3.7 cm lobulated calcified mass in the apical segment left upper lobe consistent with calcified granuloma with some peripheral areas of scarring. Continued loss of volume in the right hemithorax consistent with history of right upper and right middle lobectomies. No obvious noncalcified pulmonary nodule. Pleural spaces: Interval resolution of right hydropneumothorax. Heart: Unremarkable. No cardiomegaly. No pericardial effusion. Lymph nodes: Calcified bilateral hilar nodes and/or mediastinal nodes and/or lung granulomas consistent with old granulomatous disease. Vasculature: Calcification of the thoracic aorta and/or great vessels consistent with atherosclerotic vessel disease. Bones/joints: Unremarkable. No acute fracture. Soft tissues: Unremarkable. CT/CT chest [facility] [id number] IMPRESSION: 1. Stable 3.7 cm lobulated calcified mass in the apical segment left upper lobe consistent with calcified granuloma with some peripheral areas of scarring. 2. Continued loss of volume in the right hemithorax consistent with history of right upper and right middle lobectomies. 3. Interval resolution of right hydropneumothorax. 4. No obvious noncalcified pulmonary nodule.
== END 2022-01-02 13:01 | disposition home or self-care (01) ==
LOC: RAD 13:01
PROVIDERS: PCP Registered Nurse; Visit Provider Internal Medicine Pulmonary Disease
DX: R91.1 Solitary pulmonary nodule (principal)
CPT/HCPCS: 71250

== ENCOUNTER 2022-01-30 09:57 | Outpatient (CLI) | payer MEDICARE, OTHER, SELFPAY ==
--- NOTE | 2022-01-30 10:06 | CT_ITS ---
WS: [id number] CT NECK WITH CONTRAST HISTORY: CHRONIC LARYNGITIS, DYSPHAGIA OROPHARYNGEAL PHASE TECHNIQUE: Contiguous 5 mm axial images are performed through the neck with intravenous contrast. Sag ittal and coronal reformats are also submitted. All CT scans at [facility] use at least one o f these dose optimization techniques: automated exposure control; mA and/or kV adjustment per patient size (includes targeted exams where dose is matched to clinical indication); or iterative reconstruc tion. CONTRAST: CONTRAST: Omnipaque 350; 95 mL IV. DLP: 238.78 mGy.cm COMPARISON: None available. Nasopharynx, oropharynx, hypopharynx and larynx are unremarkable. No soft tissue masses or abnormal e nhancement. Torus tubarius and fossa of Rosenmuller and parapharyngeal fat are normal. No significant lymphadenopathy is identified. The RIGHT sublingual gland is larger than the LEFT and also with increased density and enhancement. T hese findings are asymmetric compared to the LEFT sublingual gland. The nodular enhancement in the re gion of the submandibular gland measures 1.7 x 1.2 cm. No stone are noted along the course of the alexander ts. This submandibular and the parotid glands are normal. No osseous abnormalities. Visualized portions of the skull base demonstrate no abnormalities. Orbits and globes are within norm al limits. No soft tissue masses. Visualized paranasal sinuses and mastoid air cells are normal. Benign coarse calcification at the LEFT apex. CT/CT neck w con* [id number] IMPRESSION: 1. Enlarged RIGHT sublingual gland with increased enhancement as compared to t he LEFT gland. This may be inflammatory in etiology but neoplasm is not complet cassia excluded. The gland is enlarged with no adjacent adenopathy. 2. The submandibular and parotid glands are negative.
--- NOTE | 2022-01-30 10:06 | FL_ITS ---
WS: [id number] Barium swallow and esophagram, 01/30/2022 Clinical Data: CHRONIC LARYNGITIS, DYSPHAGIA OROPHARYNGEAL PHASE Comparison: None. Fluoroscopy time: 1min [id number] # of spot films: 8 Findings: The patient swallowed the thick and thin barium, and it flowed through the hypopharynx without hesita tion. There was penetration of the barium without aspiration. 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 No stricture, mass, polyp or erosion w as seen. The barium entered the esophagus and there was dysmotility throughout. No hiatal hernia, stricture, polyp, mass, erosion or ulcer was noted. No reflux was present. FL/FL barium swallow [id number] Impression: 1. Penetration the barium without aspiration. 2. Esophageal dysmotility of the entire esophagus with no polyp, mass or erosio n, ulcer or reflux.
[2022-01-30 10:55] LABS: Blood Urea Nitrogen 14 mg/dL (8-23)
[2022-01-30] MEDS: iohexol 350 mg/mL 100 mL Btl IV (11:21)
== END 2022-01-30 09:58 | disposition home or self-care (01) ==
LOC: RAD 09:59
PROVIDERS: PCP Registered Nurse; Visit Provider Otolaryngology
DX: J37.0 Chronic laryngitis (principal); R13.12 Dysphagia, oropharyngeal phase
CPT/HCPCS: 70491; 74220; 82565; 84520

== ENCOUNTER 2022-01-30 09:58 | Outpatient (CLI) | payer MEDICARE, OTHER, SELFPAY ==
--- NOTE | 2022-01-30 13:37 | PFTS_ITS ---
Date of Study:01/30/22 Date of Dictation: MECHANICS: Forced vital capacity (FVC) is reduced. Forced expiratory volume in one second (FEV1) is reduced. FEV1/FVC is reduced. FLOW VOLUME LOOP: Reduced lateral lung volumes with significant scooping. LUNG VOLUMES: Total lung capacity (TLC) is normal. Residual volume (RV) is normal. DIFFUSING CAPACITY FOR CARBON MONOXIDE: Severely reduced. INTERPRETATION: The prebronchodilator spirometry is consistent with moderate airflow obstruction. No postbronchodilator spirometry was performed. Lung volumes are normal. Gas exchange (DLCO) is severely reduced. Reduction in DLCO is disproportionate to the spirometry findings. MTDD
== END 2022-01-30 09:59 | disposition home or self-care (01) ==
LOC: RT 09:59
PROVIDERS: PCP Registered Nurse; Visit Provider Internal Medicine Pulmonary Disease
DX: Z90.2 Acquired absence of lung [part of] (principal)
CPT/HCPCS: 94010; 94618; 94726; 94729